=== PATIENT | male | born 1980 | race Caucasian/White ===

== ENCOUNTER → 2016-04-27 | Outpatient (CLI) | payer OTHER ==
[2016-04-27 12:08] LABS: INR 2.05
== END ==
LOC: M LAB 11:34
PROVIDERS: ATTEND Internal Medicine Cardiovascular Disease
DX: Z95.2 Presence of prosthetic heart valve (principal)

== ENCOUNTER → 2016-05-09 | Outpatient (CLI) | payer OTHER ==
[2016-05-09 10:21] LABS: INR 2.28
== END ==
LOC: M LAB 09:37
PROVIDERS: ATTEND Internal Medicine Cardiovascular Disease
DX: Z95.2 Presence of prosthetic heart valve (principal)

== ENCOUNTER → 2016-05-25 | Outpatient (REF) | payer OTHER ==
[2016-05-25 15:47] LABS: INR 2.59
== END ==
LOC: M SFHCPLAZ 14:32
PROVIDERS: ATTEND Family Medicine
DX: Z79.01 Long term (current) use of anticoagulants (principal); Z95.2 Presence of prosthetic heart valve

== ENCOUNTER → 2016-08-10 | Outpatient (REF) | payer OTHER ==
[2016-08-10 19:15] LABS: INR 2.9
== END ==
LOC: M SFHCPLAZ 15:23
PROVIDERS: ATTEND Family Medicine
DX: Z79.01 Long term (current) use of anticoagulants (principal); G45.3 Amaurosis fugax

== ENCOUNTER → 2016-08-14 | Outpatient (CLI) | payer OTHER ==
[2016-08-14 11:40] LABS: INR 2.12
== END ==
LOC: M LAB 11:01
PROVIDERS: ATTEND Internal Medicine Cardiovascular Disease
DX: Z79.01 Long term (current) use of anticoagulants (principal)

== ENCOUNTER → 2017-05-15 | Outpatient (CLI) | payer OTHER ==
[2017-05-15 12:10] LABS: INR 3.05
== END ==
LOC: M LAB 11:02
DX: Z95.2 Presence of prosthetic heart valve (principal)
CPT/HCPCS: 85610

== ENCOUNTER → 2017-06-29 | Outpatient (CLI) | payer OTHER ==
[2017-06-29 12:16] LABS: INR 3.69; PROTHROMBIN TIME 38.4 SECONDS (12.4-14.5)
== END ==
LOC: M LAB 11:19
DX: Z51.81 Encounter for therapeutic drug level monitoring (principal); Z79.01 Long term (current) use of anticoagulants; I48.2 Chronic atrial fibrillation
CPT/HCPCS: 85610

== ENCOUNTER → 2017-08-14 | Outpatient (CLI) | payer OTHER | LOC: M PAIN 12:45 | DX: G57.10 Meralgia paresthetica, unspecified lower limb (principal); M54.5 Low back pain; G89.29 Other chronic pain; E11.42 Type 2 diabetes mellitus with diabetic polyneuropathy; G47.30 Sleep apnea, unspecified; E78.5 Hyperlipidemia, unspecified; G47.00 Insomnia, unspecified; I48.91 Unspecified atrial fibrillation; F17.210 Nicotine dependence, cigarettes, uncomplicated; Z79.01 Long term (current) use of anticoagulants; Z79.84 Long term (current) use of oral hypoglycemic drugs; Z79.899 Other long term (current) drug therapy; Z91.02 Food additives allergy status; Z95.2 Presence of prosthetic heart valve | CPT/HCPCS: G0463 ==

== ENCOUNTER → 2017-09-04 | Outpatient (CLI) | payer OTHER ==
[2017-09-04 16:53] LABS: HEMATOCRIT 41.4 % (42.0-52.0); HEMOGLOBIN 14.8 g/dl (13.5-17.5); MEAN CORPUSCULAR HGB CONC 35.7 g/dl (32.0-36.5); MEAN CORPUSCULAR VOLUME 86.8 fl (80.0-96.0); PLATELET COUNT, AUTOMATED 288 10^3/uL (150-450); RED BLOOD COUNT 4.77 10^6/uL (4.30-6.10); RED CELL DISTRIBUTION WIDTH 12.9 % (11.5-14.5)
[2017-09-04 17:31] LABS: ALBUMIN 3.7 GM/DL (3.2-5.2); ALBUMIN/GLOBULIN RATIO 1.03 (1.00-1.93); ALKALINE PHOSPHATASE 61 U/L (45-117); ALT/SGPT 48 U/L (12-78); ANION GAP 9 MEQ/L (8-16); AST/SGOT 28 U/L (7-37); BILIRUBIN,DIRECT 0.2 MG/DL (0.0-0.2); BILIRUBIN,TOTAL 0.5 MG/DL (0.2-1.0); BLOOD UREA NITROGEN 14 MG/DL (7-18); CARBON DIOXIDE LEVEL 27 MEQ/L (21-32); CHLORIDE LEVEL 97 MEQ/L (98-107); CREATININE FOR GFR 1.34 MG/DL (0.70-1.30); GLOMERULAR FILTRATION RATE > 60.0 (>60); PHOSPHORUS LEVEL 3.2 MG/DL (2.5-4.9); POTASSIUM SERUM 3.3 MEQ/L (3.5-5.1); SODIUM LEVEL 133 MEQ/L (136-145); TOTAL PROTEIN 7.3 GM/DL (6.4-8.2)
[2017-09-04 17:45] LABS: GLUCOSE, FASTING 409 MG/DL (70-100)
== END ==
LOC: M LAB 16:31
DX: Z51.81 Encounter for therapeutic drug level monitoring (principal); Z79.899 Other long term (current) drug therapy; B35.1 Tinea unguium
CPT/HCPCS: 80076

== ENCOUNTER → 2017-09-18 | Outpatient (CLI) | payer OTHER | LOC: M PAIN 14:15 | DX: G57.10 Meralgia paresthetica, unspecified lower limb (principal); M54.5 Low back pain; G89.29 Other chronic pain; E11.42 Type 2 diabetes mellitus with diabetic polyneuropathy; G47.30 Sleep apnea, unspecified; E78.5 Hyperlipidemia, unspecified; G47.00 Insomnia, unspecified; I48.91 Unspecified atrial fibrillation; F17.210 Nicotine dependence, cigarettes, uncomplicated; Z79.01 Long term (current) use of anticoagulants; Z79.84 Long term (current) use of oral hypoglycemic drugs; Z79.891 Long term (current) use of opiate analgesic; Z79.899 Other long term (current) drug therapy; Z91.02 Food additives allergy status; Z95.2 Presence of prosthetic heart valve | CPT/HCPCS: G0463 ==

== ENCOUNTER → 2017-10-02 | Outpatient (CLI) | payer OTHER ==
[2017-10-02 17:10] LABS: HEMATOCRIT 39.9 % (42.0-52.0); HEMOGLOBIN 13.7 g/dl (13.5-17.5); MEAN CORPUSCULAR HEMOGLOBIN 30.1 pg (27.0-33.0); MEAN CORPUSCULAR HGB CONC 34.3 g/dl (32.0-36.5); MEAN CORPUSCULAR VOLUME 87.7 fl (80.0-96.0); PLATELET COUNT, AUTOMATED 296 10^3/uL (150-450); RED BLOOD COUNT 4.55 10^6/uL (4.30-6.10); RED CELL DISTRIBUTION WIDTH 12.9 % (11.5-14.5); WHITE BLOOD COUNT 9.4 10^3/uL (4.0-10.0)
[2017-10-02 17:20] LABS: ANION GAP 9 MEQ/L (8-16); BLOOD UREA NITROGEN 12 MG/DL (7-18); CALCIUM LEVEL 8.9 MG/DL (8.5-10.1); CARBON DIOXIDE LEVEL 23 MEQ/L (21-32); CHLORIDE LEVEL 110 MEQ/L (98-107); CREATININE FOR GFR 1.24 MG/DL (0.70-1.30); GLOMERULAR FILTRATION RATE > 60.0 (>60); GLUCOSE, FASTING 178 MG/DL (70-100); POTASSIUM SERUM 3.9 MEQ/L (3.5-5.1); SODIUM LEVEL 142 MEQ/L (136-145)
[2017-10-02 17:36] LABS: INR 3.47; PROTHROMBIN TIME 36.6 SECONDS (12.4-14.5)
[2017-10-02 17:37] LABS: PARTIAL THROMBOPLASTIN TIME 54.7 SECONDS (26.8-37.9)
== END ==
LOC: M LAB 16:09
DX: Z95.2 Presence of prosthetic heart valve (principal)
CPT/HCPCS: 80048

== ENCOUNTER → 2017-11-06 | Outpatient (CLI) | payer OTHER | LOC: M PAIN 13:15 | DX: G57.10 Meralgia paresthetica, unspecified lower limb (principal); M54.5 Low back pain; G89.29 Other chronic pain; E11.42 Type 2 diabetes mellitus with diabetic polyneuropathy; I48.91 Unspecified atrial fibrillation; G47.30 Sleep apnea, unspecified; E78.5 Hyperlipidemia, unspecified; G47.00 Insomnia, unspecified; F17.200 Nicotine dependence, unspecified, uncomplicated; Z79.01 Long term (current) use of anticoagulants; Z79.84 Long term (current) use of oral hypoglycemic drugs; Z79.899 Other long term (current) drug therapy; Z91.02 Food additives allergy status; Z95.2 Presence of prosthetic heart valve; Z95.0 Presence of cardiac pacemaker | CPT/HCPCS: G0463 ==

== ENCOUNTER 2017-12-04 10:38 | Emergency (ER) | payer OTHER ==
[2017-12-04 11:47] LABS: BASO # 0.1 10^3/uL (0.0-0.2); BASO % 0.9 % (0.0-1.0); EOS % 0.5 % (0.0-3.0); HEMATOCRIT 42.6 % (42.0-52.0); HEMOGLOBIN 14.7 g/dl (13.5-17.5); IMMATURE GRANULOCYTE % 0.6 % (0-3.0); LYMPH # 1.3 10^3/uL (1.5-4.5); LYMPH % 19.2 % (24.0-44.0); MEAN CORPUSCULAR HEMOGLOBIN 31.1 pg (27.0-33.0); MEAN CORPUSCULAR HGB CONC 34.5 g/dl (32.0-36.5); MEAN CORPUSCULAR VOLUME 90.1 fl (80.0-96.0); MONO # 0.5 10^3/uL (0.0-0.8); MONO % 8.2 % (0.0-5.0); NEUTROPHILS # 4.6 10^3/uL (1.8-7.7); NEUTROPHILS % 70.6 % (36.0-66.0); PLATELET COUNT, AUTOMATED 270 10^3/uL (150-450); RED BLOOD COUNT 4.73 10^6/uL (4.30-6.10); RED CELL DISTRIBUTION WIDTH 14.4 % (11.5-14.5); WHITE BLOOD COUNT 6.6 10^3/uL (4.0-10.0)
[2017-12-04 11:59] LABS: ANION GAP 8 MEQ/L (8-16); BLOOD UREA NITROGEN 13 MG/DL (7-18); CALCIUM LEVEL 8.8 MG/DL (8.5-10.1); CARBON DIOXIDE LEVEL 28 MEQ/L (21-32); CHLORIDE LEVEL 103 MEQ/L (98-107); CK-MB VALUE MASS 4.7 NG/ML (<3.6); CPK CREATINE PHOSPHOKINASE 136 U/L (39-308); CREATININE FOR GFR 1.15 MG/DL (0.70-1.30); GLOMERULAR FILTRATION RATE > 60.0 (>60); GLUCOSE, FASTING 261 MG/DL (70-100); MB/CK RELATIVE INDEX 3.45 (< OR =4); POTASSIUM SERUM 3.3 MEQ/L (3.5-5.1); SODIUM LEVEL 139 MEQ/L (136-145); TROPONIN I 0.06 NG/ML (< 0.10)
== END 2017-12-04 14:52 | disposition home or self-care (01) ==
LOC: M ED 10:38
DX: R07.9 Chest pain, unspecified (principal); T85.848A Pain due to other internal prosthetic devices, implants and grafts, initial encounter; X58.XXXA Exposure to other specified factors, initial encounter; Y92.89 Other specified places as the place of occurrence of the external cause; E11.9 Type 2 diabetes mellitus without complications; G47.33 Obstructive sleep apnea (adult) (pediatric); E66.9 Obesity, unspecified; Z95.810 Presence of automatic (implantable) cardiac defibrillator; Z79.899 Other long term (current) drug therapy; Z79.84 Long term (current) use of oral hypoglycemic drugs; Z79.01 Long term (current) use of anticoagulants
CPT/HCPCS: 71045

== ENCOUNTER → 2017-12-18 | Outpatient (CLI) | payer OTHER | LOC: M PAIN 13:15 | DX: G57.10 Meralgia paresthetica, unspecified lower limb (principal); M54.5 Low back pain; G89.29 Other chronic pain; E11.42 Type 2 diabetes mellitus with diabetic polyneuropathy; E78.5 Hyperlipidemia, unspecified; G47.00 Insomnia, unspecified; E66.01 Morbid (severe) obesity due to excess calories; Z68.44 Body mass index [BMI] 60.0-69.9, adult; Z79.01 Long term (current) use of anticoagulants; Z79.84 Long term (current) use of oral hypoglycemic drugs; Z79.899 Other long term (current) drug therapy; Z91.02 Food additives allergy status; Z86.79 Personal history of other diseases of the circulatory system; Z87.891 Personal history of nicotine dependence; Z95.0 Presence of cardiac pacemaker | CPT/HCPCS: G0463 ==

== ENCOUNTER → 2017-12-19 | Outpatient (CLI) | payer OTHER ==
[2017-12-19 13:40] LABS: INR 3.45; PROTHROMBIN TIME 35.5 SECONDS (12.1-14.4)
== END ==
LOC: M LAB 12:58
DX: Z79.01 Long term (current) use of anticoagulants (principal)
CPT/HCPCS: 85610

== ENCOUNTER → 2018-01-27 | Outpatient (CLI) | payer OTHER | LOC: M RAD 15:40 | DX: R05 Cough (principal) | CPT/HCPCS: 71046 ==

== ENCOUNTER → 2018-01-29 | Outpatient (CLI) | payer OTHER | LOC: M PAIN 13:00 | DX: G57.10 Meralgia paresthetica, unspecified lower limb (principal); M54.5 Low back pain; G89.29 Other chronic pain; E11.42 Type 2 diabetes mellitus with diabetic polyneuropathy; G47.30 Sleep apnea, unspecified; E78.5 Hyperlipidemia, unspecified; G47.00 Insomnia, unspecified; E66.01 Morbid (severe) obesity due to excess calories; Z68.42 Body mass index [BMI] 45.0-49.9, adult; Z79.01 Long term (current) use of anticoagulants; Z79.84 Long term (current) use of oral hypoglycemic drugs; Z79.899 Other long term (current) drug therapy; Z91.02 Food additives allergy status; Z95.2 Presence of prosthetic heart valve; Z95.0 Presence of cardiac pacemaker; Z86.79 Personal history of other diseases of the circulatory system; Z87.891 Personal history of nicotine dependence | CPT/HCPCS: G0463 ==

== ENCOUNTER → 2018-02-14 | Outpatient (REF) | payer OTHER | LOC: M LAB REF 13:12 | DX: J02.9 Acute pharyngitis, unspecified (principal) ==

== ENCOUNTER → 2018-02-18 | Outpatient (CLI) | payer OTHER, SELFPAY | LOC: M WUC 14:19 | DX: Z11.1 Encounter for screening for respiratory tuberculosis (principal); I51.7 Cardiomegaly; Z95.0 Presence of cardiac pacemaker; Z95.2 Presence of prosthetic heart valve | CPT/HCPCS: 71046 ==

== ENCOUNTER → 2018-04-28 | Outpatient (CLI) | payer OTHER ==
[~2018-04-28] MED LIST: BUME2TAB3 PO; CARV3.12; CEFD1CAP8 PO; ENTR1TAB PO; HYDROCO/APAP; HYDROCODONE ACETA PO; INVO100T PO; METF500T13 PO; METO1TAB7 PO; SPIR-10 PO; TERB250T12 PO; VENTAER; VENTAER IN; WARF-22 PO
--- NOTE | 2018-05-13 00:34 | ECWPNPC ---
PATIENT NAME: JORDAN JONAS : 1980 GENDER: MALE VISIT DATE: 04/28/2018 DISCHARGE DATE: 04/28/18 1002 VISIT LOCKED DATE TIME: PHYSICIAN: HARLEY RAMIREZ RESOURCE: HARLEY RAMIREZ REASON FOR APPOINTMENT 1. BACK PAIN HISTORY OF PRESENT ILLNESS HISTORY OF PRESENT ILLNESS: HERE FOR F/U OF CHRONIC LOW BACK PAIN AND BILATERAL LEG PAIN.RATING PAIN VAS 10/10.PAIN IS DESCRIBED CONTINUOUS,ACHING AND SHARP.PAIN AWAKENS FROM SLEEP.HISTORY OF CARDIAC MYOPATHY AND NON COMPLIANT SLEEP APNEA.HAS TRIALED MULTIPLE MEDICATIONS FOR PAIN WITH EITHER SIDE EFFECTS OR NO IMPROVEMENT IN PAIN.DISCUSSED MEDICATION AND TREATMENT OPTIONS.FINDING ZONISIMIDE SOMEWHAT EFFECTIVE AT REDUCING PAIN IN LEGS AT NIGHT.USING HYDROCODONE 7.5MG Q8H PRN AND FINDS THIS SOMEWHAT EFFECTIVE.HE CONTINUES TO STRUGGLE WITH INCREASE IN PAIN AND TRYING TO STAY WORKING. PAIN THE PATIENT DESCRIBES THE PAIN... FALL RISK SCREENING: SCREENING :NO FALLS IN THE PAST YEAR CURRENT MEDICATIONS TAKING BUMETANIDE 1 MG TABLET 1 TABLET ORALLY TWICE A DAY TAKING SPIRONOLACTONE 25 MG TABLET 1 TABLET WITH FOOD ORALLY ONCE A DAY TAKING PROAIR HFA 108 (90 BASE) MCG/ACT AEROSOL SOLUTION 2 PUFFS NEEDED INHALATION EVERY 6 HRS TAKING METOPROLOL SUCCINATE ER 25 MG TABLET EXTENDED RELEASE 24 HOUR 1 TABLETS ORALLY TWICE A DAY TAKING ENTRESTO 24-26 MG TABLET TAKE 1/2 TABLET BY MOUTH TWICE DAILY ORAL TAKING TRULICITY 1.5 MG/0.5ML SOLUTION PEN-INJECTOR DIRECTED SUBCUTANEOUS WEEKLY TAKING GLUCOMETER DIRECTED SUBCUTANEOUSLY DAILY BEFORE BREAKFAST. DX: E11.9 TAKING BLOOD GLUCOSE TEST - STRIP DIRECTED IN VITRO DAILY BEFORE BREAKFAST TAKING TERBINAFINE HCL 250 MG TABLET 1 TABLET ORALLY ONCE A DAY TAKING COUMADIN 10 MG TABLET DIRECTED ORALLY 5 MG ON SUN; 10 MG ROW TAKING NICORETTE 2 MG GUM 1 PIECE NEEDED 24 TIME(S) A DAY MOUTH/THROAT 30 DAYS TAKING MAY HAVE - - PLEASE PROVIDE MASK REFIT AND SUPPLIES FOR BIPAP DAILY WHEN SLEEPING, NOTES: URGENT. IT IS VERY IMPORTANT THIS PATIENT GET REFITTED SOON POSSIBLE. TAKING MAY HAVE - - PLEASE DISPENSE INR METER AND SUPPLIES FINGERSTICK WEEKLY OR INSTRUCTED TAKING METFORMIN HCL 500 MG TABLET 2 TAB ORALLY TWICE DAILY WITH MEALS TAKING STEGLATRO 15 MG TABLET TAKE ONE TABLET BY MOUTH ONCE DAILY ORALLY DAILY TAKING ZONISAMIDE 50 MG CAPSULE 1 CAPSULE ORALLY TWICE A DAY TAKING NORCO 7.5-325 MG TABLET 1 TABLET ORALLY THREE TIMES DAILY NEEDED FOR SEVERE PAIN. MDD: 3 NOT-TAKING TERBINAFINE HCL 250 MG TAB 1 TABLET ONCE A DAY ORALLY 30 DAY(S) NOT-TAKING INVOKANA 100 MG TABLET TAKE ONE TABLET BY MOUTH ONCE DAILY ORAL , NOTES: INS. WON'T COVER, FREE TRIAL NOT-TAKING HIBICLENS 4 % LIQUID DIRECTED EXTERNALLY DAILY FOR DECOLONIZATION OF SKIN NOT-TAKING TRIAMCINOLONE ACETONIDE 0.1 % CREAM 1 APPLICATION TO INNER LEGS EXTERNALLY TWICE A DAY NOT-TAKING PREDNISONE 20 MG TABLET 2 TABLET ORALLY ONCE A DAY NOT-TAKING FLUTICASONE PROPIONATE 50 MCG/ACT SUSPENSION 1 SPRAY IN EACH NOSTRIL NASALLY BID, NOTES: USE FOR ACUTE SINUS ISSUES NOT-TAKING IPRATROPIUM BROMIDE 0.03 % SOLUTION 2 SPRAYS IN EACH NOSTRIL NASALLY TWICE A DAY, NOTES: USE FOR ACUTE SINUS ISSUES NOT-TAKING DOXYCYCLINE HYCLATE 100 MG TABLET 1 TABLET ORALLY ONCE A DAY NOT-TAKING AMOXICILLIN 875 MG TABLET 1 TABLET ORALLY EVERY 12 HRS MEDICATION LIST REVIEWED AND RECONCILED WITH THE PATIENT PAST MEDICAL HISTORY MITRAL VALVE REPLACEMENT 11/2015 SLEEP APNEA ON BIPAP ? 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 11/25/2015 FINGER FX REPAIR PACEMAKER/ DEFIBRILLATOR 10/23/17 FAMILY HISTORY FATHER: ALIVE, HEALTHY MOTHER: ALIVE, RA, 3 VALVES REPLACED, DIAGNOSED WITH HEART DISEASE SIBLINGS: ALIVE 4 BROTHER(S) , 2 SISTER(S) - HEALTHY. SOCIAL HISTORY GENERAL: TOBACCO USE ARE YOU A:FORMER SMOKER HOW LONG HAS IT BEEN SINCE YOU LAST SMOKED?3-6 MONTHS SMOKING CESSATION INFORMATION GIVEN01/04/2017 PT HAS HAD THE INFORMATION AND USES GUM BUT HAS SIDE EFFECTS FROM THIS. BMI CARE GOAL FOLLOW-UP ABOVE NORMAL BMI FOLLOW-UPDIETARY MANAGEMENT EDUCATION, GUIDANCE, AND COUNSELING ALCOHOL SCREENING DID YOU HAVE A DRINK CONTAINING ALCOHOL IN THE PAST YEAR?YES HOW OFTEN DID YOU HAVE SIX OR MORE DRINKS ON ONE OCCASION IN THE PAST YEAR?NEVER (0 POINTS) HOW MANY DRINKS DID YOU HAVE ON A TYPICAL DAY WHEN YOU WERE DRINKING IN THE PAST YEAR?1 OR 2 (0 POINTS) HOW OFTEN DID YOU HAVE A DRINK CONTAINING ALCOHOL IN THE PAST YEAR?MONTHLY OR LESS (1 POINT) POINTS1 INTERPRETATIONNEGATIVE RECREATIONAL DRUG USE DRUG USE?NO PATIENT DENIES ABUSE OR MISSUSED OF ANY MEDICATION. PATIENT DENIES USE OF ANY ILLEGAL SUBSTANCE INCLUDING MARIJUANA OR COCAINE. CAFFEINE CAFFEINE USE?YES HOW OFTEN AND HOW MUCH? 2-3 CANS SODA SEXUAL HX HAD SEX IN THE LAST 12 MONTHS (VAGINAL, ORAL, OR ANAL)?YES WITHWOMEN ONLY USE PROTECTION?NO HAVE YOU EVER HAD AN STD?NO FAITH FAITH NO BUDDHISM BELIEFS THAT WOULD IMPACT HEALTH CARE. 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 DIET: CONSISTENT CARBOHYDRATE. EXERCISE: NO REGULAR EXERCISE. MARITAL STATUS: .. OTHERS AT HOME: LIVES WITH PARTNER.. PAIN CLINIC PFS, CLERGY, PUBLIC HEALTH REFERRALS PFS REFERRAL NEEDED?NO CLERGY REFERRAL NEEDED?NO PUBLIC HEALTH REFERRAL NEEDED?NO WAS THE PROVIDER NOTIFIED OF ANY PERTINENT INFO?YES HAS THE PATIENT BEEN EDUCATED REGARDING HIS/HER PLAN OF CARE?YES 07-24-17 TRIES STRETCHES, DOESN'T USE HOT/COLD, IT MAKES IT WORSE. MEDS HELP. HAS THE PATIENT BEEN EDUCATED REGARDING PAIN, THE RISK FOR PAIN, THE IMPORTANCE OF EFFECTIVE PAIN MANAGEMENT, AND THE PAIN ASSESSMENT PROCESS?YES ADVANCE DIRECTIVE ADVANCE DIRECTIVE DISCUSSED WITH PATIENT:YES PT HAS NO ADVANCED DIRECTIVES, DECLINES INFORMATION AT THIS TIME REVIEWED WITH PATIENT 01/29/18 4405 JS. HOSPITALIZATION/MAJOR DIAGNOSTIC PROCEDURE RELATED TO SURGERY PLEURAL EFFUSION POST SURGERY REVIEW OF SYSTEMS REVIEWED BY: PROVIDER: HARLEY LAMBERT . CONSTITUTIONAL: ANY CHANGE IN YOUR MEDICAL CONDITION? NO . CHILLS NO . FEVER NO . INFECTION: DO YOU HAVE NEW INFECTIONS? NO . DO YOU HAVE HISTORY OF MRSA? NO . MUSCULOSKELETAL: ANY NEW PATTERNS OF PAIN OR NUMBNESS? YES, NERVE PAIN IN LEGS AND ARMS . GASTROENTEROLOGY: ANY NEW CHANGE IN BOWEL CONTROL? NO . GENITOURINARY: ANY NEW CHANGE IN BLADDER CONTROL? NO . IS THERE A CHANCE YOU COULD BE ? NO . HEMATOLOGY/LYMPH: DO YOU TAKE ANY BLOOD THINNERS? (FOR EXAMPLE- COUMADIN, PLAVIX, AGGRENOX, PLATEL, PRADAXA, OR XARELTO) NO . WHEN WAS YOUR LAST DOSE? DATE: TIME: . NEUROLOGY: HAVE YOU FALLEN IN THE PAST 6 MONTHS? NO . ANY NEW EXTREMITY NUMBNESS OR WEAKNESS? NO . CARDIOLOGY: DO YOU HAVE A PACEMAKER OR DEFIBRILLATOR? YES, AICD . RESPIRATORY: HAVE YOU BEEN SICK IN THE PAST WEEK? YES, COUGH, PT STATES THAT HE FEELS LIKE HE IS STARTING TO COME DOWN WITH SOMETHING. . FEVER NO . FLU LIKE SYMPTOMS? NO . COUGH NO . INTEGUMENTARY: DO YOU HAVE ANY RASHES OR OPEN SORES? NO . ALLERGIC/IMMUNO: ARE YOU ALLERGIC TO SHELLFISH OR IV DYE? NO . ANY NEW ALLERGIES? NO . PSYCHIATRIC: DO YOU HAVE THOUGHTS OF HURTING YOURSELF OR SOMEONE ELSE? NO . ARE YOU ABUSED, NEGLECTED, OR IN AN UNSAFE ENVIRONMENT? NO . ENDOCRINOLOGY: ARE YOU DIABETIC? YES, FSBS 149 . OTHER: DO YOU NEED ANY PRESCRIPTIONS? YES, ZONISAMIDE . IF YES, PLEASE LIST: ____ . ANY NEW PROBLEMS WITH YOUR MEDICATIONS? YES . WHEN DID YOU LAST EAT? ____ . WHEN DID YOU LAST DRINK? ____ . WHAT DID YOU LAST DRINK? ____ . NAME OF PERSON DRIVING YOU HOME? ____ . DO YOU HAVE ANY OTHER QUESTIONS OR CONCERNS PT SCHEDULED FOR HEART CATH ON 05/05 IN [place]. . VITAL SIGNS WT 304.6 LBS, HT 5'6", BMI 49.16 INDEX, BP 117/72 MM HG, HR 93 /MIN, RR 18 /MIN, TEMP 97.7 F, OXYGEN SAT % 98%, SAFE IN ENV? (Y/N) Y, NA INITIALS AW 0903, REVIEWED BY: FRED. EXAMINATION GENERAL EXAMINATION: GENERAL APPEARANCE:AWAKE,ALERT ,PLEAASANT . PSYCHAFFECT NORMAL . LUNGS:LUNG HOOKS ARE CLEAR TO AUSCULTATION BILATERALLY. GOOD MOVEMENT OF AIR . HEART:S1, S2 IN A REGULAR RATE AND RHYTHM. NO SIGNIFICANT MURMURS, RUBS OR GALLOPS NOTED . ASSESSMENTS RLS (RESTLESS LEGS SYNDROME) - G25.81 (PRIMARY) LOW BACK PAIN - M54.5 NEUROPATHY - G62.9 TREATMENT RLS (RESTLESS LEGS SYNDROME) INCREASE NORCO TABLET, 10-325 MG, 1 TABLET, ORALLY, Q6H PRN MDD3 #70 TAB SHOULD LAST 30 DAYS, 30 DAY(S), 70, REFILLS 0 REFILL ZONISAMIDE CAPSULE, 50 MG, 1 CAPSULE, ORALLY, TWICE A DAY, 30 DAY(S), 60 CAPSULE, REFILLS 2 NOTES: ISTOP REGISTRY REVIEWED AND DEMONSTRATES COMPLLIANCE. (REF #[id number] ) BRINGS IN MEDICATIONS WHICH IS APPROPRIATE FOR WHAT WAS DISPENSED. RECENT URINE TOXICOLOGY REVIEWED. NO UNAUTHORIZED MEDICATIONS. NO ILLICIT SUBSTANCES AND PRESCRIBED MEDICATIONS WERE PRESENT. URINE TOX TODAY, [facility] NARCOTIC AGREEMENT WAS REVIEWED 1) KEEP PAIN MEDS IN THEIR ORIGINAL BOTTLES AND ANY WEEKLY PLANNERS ARE TO BE BROUGHT TO THE PAIN CENTER AT EVERY VISIT. 2) THE PATIENT IS NOT TO INCREASE DOSING OR TIMING OF THEIR PAIN MEDICATION WITHOUT SPECIFIC DIRECTION OF THEIR PAIN CENTERPROVIDER (NOT ER OR OTHER PROVIDERS). 3) ALL PAIN MEDS ARE TO BE KEPT SECURED, IN A LOCKED BOX. 4) NO PAIN MEDS ARE TO BE SHARED WITH ANY OTHER PERSON FOR ANY REASON. 5) NO PAIN MEDS MAY BE TAKEN FROM ANY FRIENDS OR RELATIVES FOR ANY REASON 6) NO MEDS OR SUBSTANCES WHICH ARE NOT LEGAL ARE TO BE USED- NO MARIJUANA, NO COCAINE, AMPHETAMINES, HEROIN, OR OTHERS ARE EVER TO BE USED. 7)URINE TESTING IS DONE TO ACCOUNT FOR MEDS AND SUBSTANCES BEING TAKEN AND WILL BE DONE RANDOMLY., RISKS AND BENEFITS OF NARCOTIC/OPIOD MEDICATIONS WERE REVIEWED WITH PATIENT - THIS INCLUDES BUT IS NOT LIMITED TO RISK OF DEPENDANCE/DEVELOPMENT OF ADDICTION, MOOD DISTURBANCE AND DEPRESSION, OSTEOPOROSIS, HORMONAL AND LABIDAL CHANGES, RESPIRATORY DEPRESSION AND . PATIENT IS ADVISED NOT TO DRIVE OR DRINK ALCOHOL WHILE ON THESE MEDICATIONS. PROCEDURE CODES FA211 ESTABILISHED [facility]IENT [facility] CHARGE DISPOSITION & COMMUNICATION FOLLOW UP 2 MONTHS ELECTRONICALLY SIGNED BY FAUSTO TUCKER ON 05/12/2018 AT 11:27 AM EST DISCLAIMER : THIS IS A VISIT SUMMARY EXTRACTED FROM THE [employer] CHART. IT IS NOT A COPY OF THE [employer] PROGRESS NOTE. MTDD
== END ==
LOC: M PAIN 08:45
PROVIDERS: ATTEND Nurse Practitioner Family
DX: G25.81 Restless legs syndrome (principal); M54.5 Low back pain; G62.9 Polyneuropathy, unspecified; G47.30 Sleep apnea, unspecified; E11.9 Type 2 diabetes mellitus without complications; E78.5 Hyperlipidemia, unspecified; M48.061 Spinal stenosis, lumbar region without neurogenic claudication; I48.2 Chronic atrial fibrillation; I42.0 Dilated cardiomyopathy; Z95.2 Presence of prosthetic heart valve; Z87.891 Personal history of nicotine dependence; Z95.810 Presence of automatic (implantable) cardiac defibrillator; Z91.048 Other nonmedicinal substance allergy status; Z79.01 Long term (current) use of anticoagulants; Z79.84 Long term (current) use of oral hypoglycemic drugs; Z79.899 Other long term (current) drug therapy

== ENCOUNTER → 2018-06-27 | Outpatient (CLI) | payer OTHER ==
--- NOTE | 2018-07-13 00:10 | ECWPNPC ---
PATIENT NAME: JORDAN JONAS : 1980 GENDER: MALE VISIT DATE: 06/27/2018 DISCHARGE DATE: 06/27/18 0944 VISIT LOCKED DATE TIME: PHYSICIAN: HARLEY RAMIREZ RESOURCE: HARLEY RAMIREZ REASON FOR APPOINTMENT 1. BACK PAIN HISTORY OF PRESENT ILLNESS HISTORY OF PRESENT ILLNESS: HERE FOR F/U OF CHRONIC LOW BACK PAIN AND BILATERAL LEG PAIN.RATING PAIN VAS 8/10.DOING BETTERAFTER INCREASE OF HYDROCODONE TO 10/325 STRENGTH AT LAST VISIT.PAIN IS DESCRIBED CONTINUOUS,ACHING AND SHARP.PAIN AWAKENS FROM SLEEP.HISTORY OF CARDIAC MYOPATHY AND NON COMPLIANT SLEEP APNEA.HAS TRIALED MULTIPLE MEDICATIONS FOR PAIN WITH EITHER SIDE EFFECTS OR NO IMPROVEMENT IN PAIN.DISCUSSED MEDICATION AND TREATMENT OPTIONS.FINDING ZONISIMIDE SOMEWHAT EFFECTIVE AT REDUCING PAIN IN LEGS AT NIGHT. PAIN THE PATIENT DESCRIBES THE PAIN... THE PATIENT DESCRIBES THE PAIN... FALL RISK SCREENING: SCREENING : NO FALLS IN THE PAST YEAR. CURRENT MEDICATIONS TAKING BUMETANIDE 1 MG TABLET 1 TABLET ORALLY TWICE A DAY TAKING SPIRONOLACTONE 25 MG TABLET 1 TABLET WITH FOOD ORALLY ONCE A DAY TAKING PROAIR HFA 108 (90 BASE) MCG/ACT AEROSOL SOLUTION 2 PUFFS NEEDED INHALATION EVERY 6 HRS TAKING METOPROLOL SUCCINATE ER 25 MG TABLET EXTENDED RELEASE 24 HOUR 1 TABLETS ORALLY TWICE A DAY TAKING ENTRESTO 24-26 MG TABLET TAKE 1/2 TABLET BY MOUTH TWICE DAILY ORAL TAKING TRULICITY 1.5 MG/0.5ML SOLUTION PEN-INJECTOR DIRECTED SUBCUTANEOUS WEEKLY TAKING GLUCOMETER DIRECTED SUBCUTANEOUSLY DAILY BEFORE BREAKFAST. DX: E11.9 TAKING BLOOD GLUCOSE TEST - STRIP DIRECTED IN VITRO DAILY BEFORE BREAKFAST TAKING TERBINAFINE HCL 250 MG TABLET 1 TABLET ORALLY ONCE A DAY TAKING NICORETTE 2 MG GUM 1 PIECE NEEDED 24 TIME(S) A DAY MOUTH/THROAT 30 DAYS TAKING MAY HAVE - - PLEASE PROVIDE MASK REFIT AND SUPPLIES FOR BIPAP DAILY WHEN SLEEPING, NOTES: URGENT. IT IS VERY IMPORTANT THIS PATIENT GET REFITTED SOON POSSIBLE. TAKING MAY HAVE - - PLEASE DISPENSE INR METER AND SUPPLIES FINGERSTICK WEEKLY OR INSTRUCTED TAKING METFORMIN HCL 500 MG TABLET 2 TAB ORALLY TWICE DAILY WITH MEALS TAKING STEGLATRO 15 MG TABLET TAKE ONE TABLET BY MOUTH ONCE DAILY ORALLY DAILY TAKING ZONISAMIDE 50 MG CAPSULE 1 CAPSULE ORALLY TWICE A DAY TAKING COUMADIN 10 MG TABLET DIRECTED ORALLY 5 MG W, ARNOLD; 10 MG MO, TU, TH,FRI,SA TAKING NORCO 10-325 MG TABLET 1 TABLET ORALLY Q6H PRN MDD3 _#70 TAB SHOULD LAST 30 DAYS NOT-TAKING TERBINAFINE HCL 250 MG TAB 1 TABLET ONCE A DAY ORALLY 30 DAY(S) NOT-TAKING INVOKANA 100 MG TABLET TAKE ONE TABLET BY MOUTH ONCE DAILY ORAL , NOTES: INS. WON'T COVER, FREE TRIAL NOT-TAKING HIBICLENS 4 % LIQUID DIRECTED EXTERNALLY DAILY FOR DECOLONIZATION OF SKIN NOT-TAKING TRIAMCINOLONE ACETONIDE 0.1 % CREAM 1 APPLICATION TO INNER LEGS EXTERNALLY TWICE A DAY NOT-TAKING PREDNISONE 20 MG TABLET 2 TABLET ORALLY ONCE A DAY NOT-TAKING FLUTICASONE PROPIONATE 50 MCG/ACT SUSPENSION 1 SPRAY IN EACH NOSTRIL NASALLY BID, NOTES: USE FOR ACUTE SINUS ISSUES NOT-TAKING IPRATROPIUM BROMIDE 0.03 % SOLUTION 2 SPRAYS IN EACH NOSTRIL NASALLY TWICE A DAY, NOTES: USE FOR ACUTE SINUS ISSUES NOT-TAKING DOXYCYCLINE HYCLATE 100 MG TABLET 1 TABLET ORALLY ONCE A DAY NOT-TAKING AMOXICILLIN 875 MG TABLET 1 TABLET ORALLY EVERY 12 HRS MEDICATION LIST REVIEWED AND RECONCILED WITH THE PATIENT PAST MEDICAL HISTORY MITRAL VALVE REPLACEMENT 11/2015 SLEEP APNEA ON BIPAP ? 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 11/25/2015 FINGER FX REPAIR PACEMAKER/ DEFIBRILLATOR 10/23/17 FAMILY HISTORY FATHER: ALIVE, HEALTHY MOTHER: ALIVE, RA, 3 VALVES REPLACED, DIAGNOSED WITH HEART DISEASE SIBLINGS: ALIVE 4 BROTHER(S) , 2 SISTER(S) - HEALTHY. SOCIAL HISTORY GENERAL: TOBACCO USE ARE YOU A:FORMER SMOKER HOW LONG HAS IT BEEN SINCE YOU LAST SMOKED?3-6 MONTHS SMOKING CESSATION INFORMATION GIVEN01/04/2017 PT HAS HAD THE INFORMATION AND USES GUM BUT HAS SIDE EFFECTS FROM THIS. LATEX QUESTIONNAIRE LATEX ALLERGY : HAVE YOU EVER DEVELOPED ANY TYPE OF REACTION AFTER HANDLING LATEX PRODUCTS SUCH RUBBER GLOVES, CONDOMS, DIAPHRAGMS, BALLOONS, SOCKS, OR UNDERWEAR?NO LATEX ALLERGY : HAVE YOU EVER DEVELOPED ANY TYPE OF REACTION DURING OR AFTER DENTAL APPOINTMENT, VAGINAL/RECTAL EXAMINATION, SURGICAL PROCEDURE, OR ANY OTHER EXPOSURE?NO LATEX RISK : HAVE YOU EVER HAD ANY DIFFICULTY BREATHING OR HIVES AFTER EATING OR HANDLING ANY FRUITS, OR VEGETABLES; SUCH KIWI, BANANAS, STONE FRUITS, OR CHESTNUTSNO LATEX RISK : DO YOU HAVE A PREVIOUS PERSONAL HISTORY OF MORE THAN NINE SURGERIES, SPINA BIFIDA, OR REPEATED CATHERTIZATIONS? NO LATEX RISK : ARE YOU FREQUENTLY EXPOSED TO LATEX PRODUCTS IN YOUR OCCUPATION?NO DATE ASKED : 06/27/2018 BMI CARE GOAL FOLLOW-UP ABOVE NORMAL BMI FOLLOW-UPDIETARY MANAGEMENT EDUCATION, GUIDANCE, AND COUNSELING ALCOHOL SCREENING DID YOU HAVE A DRINK CONTAINING ALCOHOL IN THE PAST YEAR?YES HOW OFTEN DID YOU HAVE SIX OR MORE DRINKS ON ONE OCCASION IN THE PAST YEAR?NEVER (0 POINTS) HOW MANY DRINKS DID YOU HAVE ON A TYPICAL DAY WHEN YOU WERE DRINKING IN THE PAST YEAR?1 OR 2 (0 POINTS) HOW OFTEN DID YOU HAVE A DRINK CONTAINING ALCOHOL IN THE PAST YEAR?MONTHLY OR LESS (1 POINT) POINTS1 INTERPRETATIONNEGATIVE RECREATIONAL DRUG USE DRUG USE?NO PATIENT DENIES ABUSE OR MISSUSED OF ANY MEDICATION. PATIENT DENIES USE OF ANY ILLEGAL SUBSTANCE INCLUDING MARIJUANA OR COCAINE. CAFFEINE CAFFEINE USE?YES HOW OFTEN AND HOW MUCH? 2-3 CANS SODA SEXUAL HX HAD SEX IN THE LAST 12 MONTHS (VAGINAL, ORAL, OR ANAL)?YES WITHWOMEN ONLY USE PROTECTION?NO HAVE YOU EVER HAD AN STD?NO BAPTISM BAPTISM NO JAINISM BELIEFS THAT WOULD IMPACT HEALTH CARE. 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 DIET: CONSISTENT CARBOHYDRATE. EXERCISE: NO REGULAR EXERCISE. MARITAL STATUS: .. OTHERS AT HOME: LIVES WITH PARTNER.. PAIN CLINIC PFS, CLERGY, PUBLIC HEALTH REFERRALS PFS REFERRAL NEEDED?NO CLERGY REFERRAL NEEDED?NO PUBLIC HEALTH REFERRAL NEEDED?NO WAS THE PROVIDER NOTIFIED OF ANY PERTINENT INFO?YES HAS THE PATIENT BEEN EDUCATED REGARDING HIS/HER PLAN OF CARE?YES 07-24-17 TRIES STRETCHES, DOESN'T USE HOT/COLD, IT MAKES IT WORSE. MEDS HELP. HAS THE PATIENT BEEN EDUCATED REGARDING PAIN, THE RISK FOR PAIN, THE IMPORTANCE OF EFFECTIVE PAIN MANAGEMENT, AND THE PAIN ASSESSMENT PROCESS?YES ADVANCE DIRECTIVE ADVANCE DIRECTIVE DISCUSSED WITH PATIENT:YES SANDEEP WILCOX [phone] REVIEWED WITH PATIENT 01/29/18 9535 JS. HOSPITALIZATION/MAJOR DIAGNOSTIC PROCEDURE RELATED TO SURGERY PLEURAL EFFUSION POST SURGERY REVIEW OF SYSTEMS REVIEWED BY: PROVIDER: HARLEY LAMBERT . CONSTITUTIONAL: ANY CHANGE IN YOUR MEDICAL CONDITION? NO . CHILLS NO . FEVER NO . INFECTION: DO YOU HAVE NEW INFECTIONS? YES, SINUS INFECTION, ON ANTIBIOTICS . DO YOU HAVE HISTORY OF MRSA? YES, PATRICKE,. 7 YEARS AGO . MUSCULOSKELETAL: ANY NEW PATTERNS OF PAIN OR NUMBNESS? NO . GASTROENTEROLOGY: ANY NEW CHANGE IN BOWEL CONTROL? NO . GENITOURINARY: ANY NEW CHANGE IN BLADDER CONTROL? NO . IS THERE A CHANCE YOU COULD BE ? NO . HEMATOLOGY/LYMPH: DO YOU TAKE ANY BLOOD THINNERS? (FOR EXAMPLE- COUMADIN, PLAVIX, AGGRENOX, PLATEL, PRADAXA, OR XARELTO) YES . WHEN WAS YOUR LAST DOSE? DATE: TIME: . NEUROLOGY: HAVE YOU FALLEN IN THE PAST 12 MONTHS? NO . ANY NEW EXTREMITY NUMBNESS OR WEAKNESS? NO . CARDIOLOGY: DO YOU HAVE A PACEMAKER OR DEFIBRILLATOR? YES . RESPIRATORY: HAVE YOU BEEN SICK IN THE PAST WEEK? YES . FEVER NO . FLU LIKE SYMPTOMS? NO . COUGH NO . INTEGUMENTARY: DO YOU HAVE ANY RASHES OR OPEN SORES? NO . ALLERGIC/IMMUNO: ARE YOU ALLERGIC TO IV DYE? NO . ANY NEW ALLERGIES? NO . PSYCHIATRIC: DO YOU HAVE THOUGHTS OF HURTING YOURSELF OR SOMEONE ELSE? NO . ARE YOU ABUSED, NEGLECTED, OR IN AN UNSAFE ENVIRONMENT? NO . ENDOCRINOLOGY: ARE YOU DIABETIC? YES . OTHER: DO YOU NEED ANY PRESCRIPTIONS? NORCO 10-325 . IF YES, PLEASE LIST: ____ . ANY NEW PROBLEMS WITH YOUR MEDICATIONS? NO . WHEN DID YOU LAST EAT? ____ . WHEN DID YOU LAST DRINK? ____ . WHAT DID YOU LAST DRINK? ____ . NAME OF PERSON DRIVING YOU HOME? ____ . DO YOU HAVE ANY OTHER QUESTIONS OR CONCERNS NO . VITAL SIGNS WT 287 LBS, HT 5'6", BMI 46.32 INDEX, BP 119/63 MM HG, HR 96 /MIN, RR 18 /MIN, TEMP 96.6 F, OXYGEN SAT % 95%, SAFE IN ENV? (Y/N) Y, NA INITIALS VA 09:07, REVIEWED BY: FRED. EXAMINATION GENERAL EXAMINATION: GENERAL APPEARANCE:AWAKE,ALERT ,PLEAASANT . PSYCHAFFECT NORMAL . LUNGS:LUNG HOOKS ARE CLEAR TO AUSCULTATION BILATERALLY. GOOD MOVEMENT OF AIR . HEART:S1, S2 IN A REGULAR RATE AND RHYTHM. NO SIGNIFICANT MURMURS, RUBS OR GALLOPS NOTED . ASSESSMENTS RLS (RESTLESS LEGS SYNDROME) - G25.81 (PRIMARY) LOW BACK PAIN - M54.5 NEUROPATHY - G62.9 TREATMENT RLS (RESTLESS LEGS SYNDROME) REFILL NORCO TABLET, 10-325 MG, 1 TABLET, ORALLY, Q6H PRN MDD3 _#70 TAB SHOULD LAST 30 DAYS, 30 DAY(S), 70, REFILLS 0 NOTES: ISTOP REGISTRY REVIEWED AND DEMONSTRATES COMPLLIANCE. (REF #[id number] ) BRINGS IN MEDICATIONS WHICH IS APPROPRIATE FOR WHAT WAS DISPENSED. RECENT URINE TOXICOLOGY REVIEWED. NO UNAUTHORIZED MEDICATIONS. NO ILLICIT SUBSTANCES AND PRESCRIBED MEDICATIONS WERE PRESENT. , RISKS AND BENEFITS OF NARCOTIC/OPIOD MEDICATIONS WERE REVIEWED WITH PATIENT - THIS INCLUDES BUT IS NOT LIMITED TO RISK OF DEPENDANCE/DEVELOPMENT OF ADDICTION, MOOD DISTURBANCE AND DEPRESSION, OSTEOPOROSIS, HORMONAL AND LABIDAL CHANGES, RESPIRATORY DEPRESSION AND . PATIENT IS ADVISED NOT TO DRIVE OR DRINK ALCOHOL WHILE ON THESE MEDICATIONS. PROCEDURE CODES FA211 ESTABILISHED PATIENT [facility] CHARGE DISPOSITION & COMMUNICATION FOLLOW UP 2 MONTHS ELECTRONICALLY SIGNED BY FAUSTO TUCKER ON 07/11/2018 AT 03:16 PM EDT DISCLAIMER : THIS IS A VISIT SUMMARY EXTRACTED FROM THE [employer] CHART. IT IS NOT A COPY OF THE [employer] PROGRESS NOTE. ELKE
== END ==
LOC: M PAIN 08:45
PROVIDERS: ATTEND Nurse Practitioner Family
DX: G25.81 Restless legs syndrome (principal); M54.5 Low back pain; G89.29 Other chronic pain; G62.9 Polyneuropathy, unspecified; E11.9 Type 2 diabetes mellitus without complications; E78.5 Hyperlipidemia, unspecified; E66.01 Morbid (severe) obesity due to excess calories; Z68.42 Body mass index [BMI] 45.0-49.9, adult; Z79.01 Long term (current) use of anticoagulants; Z79.84 Long term (current) use of oral hypoglycemic drugs; Z79.891 Long term (current) use of opiate analgesic; Z79.899 Other long term (current) drug therapy; Z91.02 Food additives allergy status; Z86.79 Personal history of other diseases of the circulatory system; Z87.891 Personal history of nicotine dependence; Z95.4 Presence of other heart-valve replacement; Z95.0 Presence of cardiac pacemaker

== ENCOUNTER → 2018-08-28 | Outpatient (CLI) | payer OTHER ==
--- NOTE | 2018-09-16 01:57 | ECWPNPC ---
PATIENT NAME: JORDAN JONAS : 1980 GENDER: MALE VISIT DATE: 08/28/2018 DISCHARGE DATE: 08/28/18925 VISIT LOCKED DATE TIME: PHYSICIAN: HARLEY RAMIREZ RESOURCE: HARLEY RAMIREZ REASON FOR APPOINTMENT 1. BACK PAIN HISTORY OF PRESENT ILLNESS HISTORY OF PRESENT ILLNESS: HERE FOR F/U OF CHRONIC LOW BACK PAIN AND BILATERAL LEG PAIN.RATING PAIN VAS 6/10.CONCERNED ABOUT INCRTEASE IN NEUROPATHIC PAIN IN FEET BILAT.PAIN IS DESCRIBED CONTINUOUS,ACHING AND SHARP.PAIN AWAKENS FROM SLEEP.HISTORY OF CARDIAC MYOPATHY AND NON COMPLIANT SLEEP APNEA.HAS TRIALED MULTIPLE MEDICATIONS FOR PAIN WITH EITHER SIDE EFFECTS OR NO IMPROVEMENT IN PAIN.DISCUSSED MEDICATION AND TREATMENT OPTIONS.FINDING ZONISIMIDE SOMEWHAT EFFECTIVE AT REDUCING PAIN IN LEGS AT NIGHT. PAIN THE PATIENT DESCRIBES THE PAIN... THE PATIENT DESCRIBES THE PAIN... THE PATIENT DESCRIBES THE PAIN... FALL RISK SCREENING: SCREENING :NO FALLS REPORTED IN THE LAST YEAR CURRENT MEDICATIONS TAKING BUMETANIDE 1 MG TABLET 1 TABLET ORALLY TWICE A DAY TAKING SPIRONOLACTONE 25 MG TABLET 1 TABLET WITH FOOD ORALLY TWICE A DAY TAKING PROAIR HFA 108 (90 BASE) MCG/ACT AEROSOL SOLUTION 2 PUFFS NEEDED INHALATION EVERY 6 HRS TAKING METOPROLOL SUCCINATE ER 25 MG TABLET EXTENDED RELEASE 24 HOUR 1 TABLETS ORALLY TWICE A DAY TAKING ENTRESTO 24-26 MG TABLET TAKE 1/2 TABLET BY MOUTH TWICE DAILY ORAL TAKING TRULICITY 1.5 MG/0.5ML SOLUTION PEN-INJECTOR DIRECTED SUBCUTANEOUS WEEKLY TAKING GLUCOMETER DIRECTED SUBCUTANEOUSLY DAILY BEFORE BREAKFAST. DX: E11.9 TAKING BLOOD GLUCOSE TEST - STRIP DIRECTED IN VITRO DAILY BEFORE BREAKFAST TAKING NICORETTE 2 MG GUM 1 PIECE NEEDED 24 TIME(S) A DAY MOUTH/THROAT 30 DAYS TAKING MAY HAVE - - PLEASE PROVIDE MASK REFIT AND SUPPLIES FOR BIPAP DAILY WHEN SLEEPING, NOTES: URGENT. IT IS VERY IMPORTANT THIS PATIENT GET REFITTED SOON POSSIBLE. TAKING MAY HAVE - - PLEASE DISPENSE INR METER AND SUPPLIES FINGERSTICK WEEKLY OR INSTRUCTED TAKING METFORMIN HCL 500 MG TABLET 1 TAB ORALLY TWICE DAILY WITH MEALS TAKING STEGLATRO 15 MG TABLET TAKE ONE TABLET BY MOUTH ONCE DAILY ORALLY DAILY TAKING ZONISAMIDE 50 MG CAPSULE 1 CAPSULE ORALLY TWICE A DAY TAKING NORCO 10-325 MG TABLET 1 TABLET ORALLY Q6H PRN MDD3 _#70 TAB SHOULD LAST 30 DAYS TAKING ROPINIROLE HCL 0.25 MG TABLET 1 TABLET 1 TO 3 HOURS BEFORE BEDTIME ORALLY ONCE A DAY, NOTES: STOP ZONISAMIDE AND START ROPINOROLE FOR RESTLESS LEGS TAKING MAY HAVE - - PLEASE DISPENSE INR TESTING EQUIPMENT AND MACHINE WEEKLY INR WITH TARGET RANGE 2.5 - 3.5 WITH PANIC VALUES OF <1.5 AND >5 TAKING COUMADIN 10 MG TABLET DIRECTED ORALLY 5 MG ARNOLD; 10 MG MO, , , , SAT,SA, NOTES: 5 MG ARNOLD, 10 MG M, , , , SAT, SAT NOT-TAKING TERBINAFINE HCL 250 MG TABLET 1 TABLET ORALLY ONCE A DAY NOT-TAKING TERBINAFINE HCL 250 MG TAB 1 TABLET ONCE A DAY ORALLY 30 DAY(S) NOT-TAKING INVOKANA 100 MG TABLET TAKE ONE TABLET BY MOUTH ONCE DAILY ORAL , NOTES: INS. WON'T COVER, FREE TRIAL NOT-TAKING HIBICLENS 4 % LIQUID DIRECTED EXTERNALLY DAILY FOR DECOLONIZATION OF SKIN NOT-TAKING TRIAMCINOLONE ACETONIDE 0.1 % CREAM 1 APPLICATION TO INNER LEGS EXTERNALLY TWICE A DAY NOT-TAKING PREDNISONE 20 MG TABLET 2 TABLET ORALLY ONCE A DAY NOT-TAKING FLUTICASONE PROPIONATE 50 MCG/ACT SUSPENSION 1 SPRAY IN EACH NOSTRIL NASALLY BID, NOTES: USE FOR ACUTE SINUS ISSUES NOT-TAKING IPRATROPIUM BROMIDE 0.03 % SOLUTION 2 SPRAYS IN EACH NOSTRIL NASALLY TWICE A DAY, NOTES: USE FOR ACUTE SINUS ISSUES NOT-TAKING DOXYCYCLINE HYCLATE 100 MG TABLET 1 TABLET ORALLY ONCE A DAY NOT-TAKING AMOXICILLIN 875 MG TABLET 1 TABLET ORALLY EVERY 12 HRS MEDICATION LIST REVIEWED AND RECONCILED WITH THE PATIENT PAST MEDICAL HISTORY MITRAL VALVE REPLACEMENT 11/2015 SLEEP APNEA ON BIPAP ? 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 11/25/2015 FINGER FX REPAIR PACEMAKER/ DEFIBRILLATOR 10/23/17 FAMILY HISTORY FATHER: ALIVE, HEALTHY MOTHER: ALIVE, RA, 3 VALVES REPLACED, DIAGNOSED WITH HEART DISEASE SIBLINGS: ALIVE 4 BROTHER(S) , 2 SISTER(S) - HEALTHY. SOCIAL HISTORY GENERAL: TOBACCO USE ARE YOU A:FORMER SMOKER HOW LONG HAS IT BEEN SINCE YOU LAST SMOKED?6-12 MONTHS SMOKING CESSATION INFORMATION GIVEN01/04/2017 PT HAS HAD THE INFORMATION AND USES GUM BUT HAS SIDE EFFECTS FROM THIS. HIV / HEP-C SCREENING HIV TEST OFFERED TO PATIENT:YES DATE OFFERED:04/23/2016 TEST ACCEPTED:NO HEP-C TEST OFFERED TO PATIENT:YES DATE OFFERED:07/25/2018 REASON:PATIENT DECLINED TEST ACCEPTED:NO REASON:PATIENT DECLINED BROCHURE PROVIDED TO PATIENTYES OTHERS AT HOME: LIVES WITH PARTNER.. DIET: CONSISTENT CARBOHYDRATE. LANGUAGE LANGUAGES SPOKEN:GREEK DOMESTIC VIOLENCE DO YOU FEEL SAFE IN YOUR ENVIRONMENT?YES BMI CARE GOAL FOLLOW-UP ABOVE NORMAL BMI FOLLOW-UPDIETARY MANAGEMENT EDUCATION, GUIDANCE, AND COUNSELING RECREATIONAL DRUG USE DRUG USE?NO PATIENT DENIES ABUSE OR MISSUSED OF ANY MEDICATION. PATIENT DENIES USE OF ANY ILLEGAL SUBSTANCE INCLUDING MARIJUANA OR COCAINE. EXERCISE: NO REGULAR EXERCISE. LEARNING BARRIERS / SPECIAL NEEDS CHANGE FROM LAST VISIT?NO BARRIERS TO LEARNING?NO HEARING IMPAIRED?NO VISION IMPAIRED?NO COGNITIVELY IMPAIRED?NO READINESS TO LEARN?YES LEARNING PREFERENCES?YES :DEMONSTRATION/VERBAL INSTRUCTION LEARNING CAPABILITIES PRESENT?YES EMOTIONAL BARRIERS?NO SPECIAL DEVICES?NO CONVEYOR BELT OPERATOR NEEDED?NO PAIN CLINIC PFS, CLERGY, PUBLIC HEALTH REFERRALS PFS REFERRAL NEEDED?NO CLERGY REFERRAL NEEDED?NO PUBLIC HEALTH REFERRAL NEEDED?NO WAS THE PROVIDER NOTIFIED OF ANY PERTINENT INFO?YES HAS THE PATIENT BEEN EDUCATED REGARDING HIS/HER PLAN OF CARE?YES 07-24-17 TRIES STRETCHES, DOESN'T USE HOT/COLD, IT MAKES IT WORSE. MEDS HELP. HAS THE PATIENT BEEN EDUCATED REGARDING PAIN, THE RISK FOR PAIN, THE IMPORTANCE OF EFFECTIVE PAIN MANAGEMENT, AND THE PAIN ASSESSMENT PROCESS?YES LATEX QUESTIONNAIRE LATEX ALLERGY : HAVE YOU EVER DEVELOPED ANY TYPE OF REACTION AFTER HANDLING LATEX PRODUCTS SUCH RUBBER GLOVES, CONDOMS, DIAPHRAGMS, BALLOONS, SOCKS, OR UNDERWEAR?NO LATEX ALLERGY : HAVE YOU EVER DEVELOPED ANY TYPE OF REACTION DURING OR AFTER DENTAL APPOINTMENT, VAGINAL/RECTAL EXAMINATION, SURGICAL PROCEDURE, OR ANY OTHER EXPOSURE?NO DATE ASKED : 07/25/2018 LATEX RISK : HAVE YOU EVER HAD ANY DIFFICULTY BREATHING OR HIVES AFTER EATING OR HANDLING ANY FRUITS, OR VEGETABLES; SUCH KIWI, BANANAS, STONE FRUITS, OR CHESTNUTSNO LATEX RISK : DO YOU HAVE A PREVIOUS PERSONAL HISTORY OF MORE THAN NINE SURGERIES, SPINA BIFIDA, OR REPEATED CATHERTIZATIONS? NO LATEX RISK : ARE YOU FREQUENTLY EXPOSED TO LATEX PRODUCTS IN YOUR OCCUPATION?NO CAFFEINE CAFFEINE USE?YES HOW OFTEN AND HOW MUCH? 2-3 CANS SODA ADVANCE DIRECTIVE ADVANCE DIRECTIVE DISCUSSED WITH PATIENT:YES SANDEEP WILCOX [phone] PENTECOSTALISM [id number] NONE NO CONFUCIANIST BELIEFS THAT WOULD IMPACT HEALTH CARE. MARITAL STATUS: .. 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 SEXUAL HX HAD SEX IN THE LAST 12 MONTHS (VAGINAL, ORAL, OR ANAL)?YES WITHWOMEN ONLY USE PROTECTION?NO HAVE YOU EVER HAD AN STD?NO REVIEWED WITH PATIENT 01/29/18 1315 JS. HOSPITALIZATION/MAJOR DIAGNOSTIC PROCEDURE RELATED TO SURGERY PLEURAL EFFUSION POST SURGERY REVIEW OF SYSTEMS REVIEWED BY: PROVIDER: HARLEY LAMBERT . CONSTITUTIONAL: ANY CHANGE IN YOUR MEDICAL CONDITION? NO . CHILLS NO . FEVER NO . INFECTION: DO YOU HAVE NEW INFECTIONS? NO . DO YOU HAVE HISTORY OF MRSA? NO . MUSCULOSKELETAL: ANY NEW PATTERNS OF PAIN OR NUMBNESS? YES . GASTROENTEROLOGY: ANY NEW CHANGE IN BOWEL CONTROL? NO . GENITOURINARY: ANY NEW CHANGE IN BLADDER CONTROL? NO . IS THERE A CHANCE YOU COULD BE ? NO . HEMATOLOGY/LYMPH: DO YOU TAKE ANY BLOOD THINNERS? (FOR EXAMPLE- COUMADIN, PLAVIX, AGGRENOX, PLATEL, PRADAXA, OR XARELTO) YES . WHEN WAS YOUR LAST DOSE? DATE: TIME: . NEUROLOGY: HAVE YOU FALLEN IN THE PAST 12 MONTHS? NO . ANY NEW EXTREMITY NUMBNESS OR WEAKNESS? YES . CARDIOLOGY: DO YOU HAVE A PACEMAKER OR DEFIBRILLATOR? YES . RESPIRATORY: HAVE YOU BEEN SICK IN THE PAST WEEK? NO . FEVER NO . FLU LIKE SYMPTOMS? NO . COUGH YES . INTEGUMENTARY: DO YOU HAVE ANY RASHES OR OPEN SORES? NO . ALLERGIC/IMMUNO: ARE YOU ALLERGIC TO IV DYE? NO . ANY NEW ALLERGIES? NO . PSYCHIATRIC: DO YOU HAVE THOUGHTS OF HURTING YOURSELF OR SOMEONE ELSE? NO . ARE YOU ABUSED, NEGLECTED, OR IN AN UNSAFE ENVIRONMENT? NO . ENDOCRINOLOGY: ARE YOU DIABETIC? YES . OTHER: DO YOU NEED ANY PRESCRIPTIONS? YES . IF YES, PLEASE LIST: NORCO . ANY NEW PROBLEMS WITH YOUR MEDICATIONS? NO . WHEN DID YOU LAST EAT? ____ . WHEN DID YOU LAST DRINK? ____ . WHAT DID YOU LAST DRINK? ____ . NAME OF PERSON DRIVING YOU HOME? ____ . DO YOU HAVE ANY OTHER QUESTIONS OR CONCERNS YES - FEET . VITAL SIGNS WT 288.8 LBS, HT 66", BMI 46.61 INDEX, BP 114/73 MM HG, HR 94 /MIN, RR 18 /MIN, TEMP 97.0 F, OXYGEN SAT % 95, NA INITIALS MP 0840, REVIEWED BY: JOSEF. EXAMINATION GENERAL EXAMINATION: GENERAL APPEARANCE:AWAKE,ALERT ,PLEAASANT . PSYCHAFFECT NORMAL . LUNGS:LUNG HOOKS ARE CLEAR TO AUSCULTATION BILATERALLY. GOOD MOVEMENT OF AIR . HEART:S1, S2 IN A REGULAR RATE AND RHYTHM. NO SIGNIFICANT MURMURS, RUBS OR GALLOPS NOTED . ASSESSMENTS DIABETIC PERIPHERAL NEUROPATHY - E11.42 (PRIMARY) POLYARTHROPATHY - M13.0 TREATMENT DIABETIC PERIPHERAL NEUROPATHY START GABAPENTIN CAPSULE, 100 MG, DIRECTED, ORALLY, 2 CAP BID, 30 DAY(S), 120, REFILLS 2 REFILL NORCO TABLET, 10-325 MG, 1 TABLET, ORALLY, Q6H PRN MDD3 _#70 TAB SHOULD LAST 30 DAYS, 30 DAY(S), 70, REFILLS 0 NOTES: ISTOP REGISTRY REVIEWED AND DEMONSTRATES COMPLLIANCE. (REF # ) BRINGS IN MEDICATIONS WHICH IS APPROPRIATE FOR WHAT WAS DISPENSED. RECENT URINE TOXICOLOGY REVIEWED. NO UNAUTHORIZED MEDICATIONS. NO ILLICIT SUBSTANCES AND PRESCRIBED MEDICATIONS WERE PRESENT. , RISKS AND BENEFITS OF NARCOTIC/OPIOD MEDICATIONS WERE REVIEWED WITH PATIENT - THIS INCLUDES BUT IS NOT LIMITED TO RISK OF DEPENDANCE/DEVELOPMENT OF ADDICTION, MOOD DISTURBANCE AND DEPRESSION, OSTEOPOROSIS, HORMONAL AND LABIDAL CHANGES, RESPIRATORY DEPRESSION AND . PATIENT IS ADVISED NOT TO DRIVE OR DRINK ALCOHOL WHILE ON THESE MEDICATIONS. PREVENTIVE MEDICINE PAIN CLINIC TEACHING: PROCEDURE TEACHING PT TO START ON GABAPENTIN. FABIOLA MEDICATION TEACHING SHEET PRINTED AND REVIEWED WITH PT, PT VERBALIZES UNDERSTANDING. [employer] 08/28/18 0925. PROCEDURE CODES FA211 ESTABILISHED PATIENT [facility] FACILITY CHARGE DISPOSITION & COMMUNICATION FOLLOW UP 2 MONTHS ELECTRONICALLY SIGNED BY HARLEY LAMBERT, FAUSTO ON 09/15/2018 AT 08:59 AM EDT DISCLAIMER : THIS IS A VISIT SUMMARY EXTRACTED FROM THE [email or web address] CHART. IT IS NOT A COPY OF THE [employer] PROGRESS NOTE. ELKE
== END ==
LOC: M PAIN 08:30
PROVIDERS: ATTEND Nurse Practitioner Family
DX: E11.42 Type 2 diabetes mellitus with diabetic polyneuropathy (principal); M13.0 Polyarthritis, unspecified; G89.29 Other chronic pain; E78.5 Hyperlipidemia, unspecified; G47.30 Sleep apnea, unspecified; I50.42 Chronic combined systolic (congestive) and diastolic (congestive) heart failure; I42.0 Dilated cardiomyopathy; E66.01 Morbid (severe) obesity due to excess calories; Z68.42 Body mass index [BMI] 45.0-49.9, adult; Z79.84 Long term (current) use of oral hypoglycemic drugs; Z79.891 Long term (current) use of opiate analgesic; Z79.899 Other long term (current) drug therapy; Z79.01 Long term (current) use of anticoagulants; Z91.02 Food additives allergy status; Z87.891 Personal history of nicotine dependence; Z86.79 Personal history of other diseases of the circulatory system; Z95.2 Presence of prosthetic heart valve

== ENCOUNTER 2018-10-28 02:29 | Emergency (ER) | payer OTHER ==
[~2018-10-28] VITALS: Ht 167.6 cm; Wt 135.0 kg
[2018-10-28] MEDS ORDERED: PRED20TA (02:42)
[2018-10-28] MEDS ORDERED: BUME1TAB3 (02:42)
[2018-10-28] MEDS ORDERED: COUM1TAB17 PO (02:42)
[2018-10-28] MEDS ORDERED: AZIT-12 (02:42)
[2018-10-28] MEDS ORDERED: LEVO500T3 (02:42)
[2018-10-28 03:16] LABS: VENOUS BASE EXCESS 0.4 (-2.0-2.0); VENOUS PARTIAL PRESSURE CO2 45.6 mmHg (38.0-50.0); VENOUS PARTIAL PRESSURE O2 68.4 mmHg (30.0-50.0); VENOUS PH 7.374 UNITS (7.330-7.430); VENOUS STANDARD HCO3 24.7 MEQ/L; VENOUS TOTAL CO2 27.4 MEQ/L (24.0-28.0)
[2018-10-28 03:16] LABS: HEMATOCRIT 43.4 % (42.0-52.0); HEMOGLOBIN 14.5 g/dl (13.5-17.5); MEAN CORPUSCULAR HEMOGLOBIN 31.8 pg (27.0-33.0); MEAN CORPUSCULAR HGB CONC 33.4 g/dl (32.0-36.5); MEAN CORPUSCULAR VOLUME 95.2 fl (80.0-96.0); PLATELET COUNT, AUTOMATED 263 10^3/uL (150-450); RED BLOOD COUNT 4.56 10^6/uL (4.30-6.10)
[2018-10-28 03:42] LABS: BLOOD UREA NITROGEN 19 MG/DL (7-18); CALCIUM LEVEL 8.5 MG/DL (8.5-10.1); CARBON DIOXIDE LEVEL 27 MEQ/L (21-32); CHLORIDE LEVEL 104 MEQ/L (98-107); CPK CREATINE PHOSPHOKINASE 251 U/L (39-308); GLOMERULAR FILTRATION RATE > 60.0 (>60); GLUCOSE, FASTING 300 MG/DL (70-100); MB/CK RELATIVE INDEX 1.59 (< OR =4); SODIUM LEVEL 138 MEQ/L (136-145); TROPONIN I 0.07 NG/ML (< 0.10)
[2018-10-28 03:51] LABS: ATYPICAL LYMPH 2 % (0-5); BASOPHILS 1 % (0-4); EOSINOPHILS 1 % (0-5); LYMPHOCYTES 27 % (16-52); MONOCYTES 8 % (0-8); NEUTROPHILS 61 % (35-75); PLATELET ESTIMATE NORMAL (NORMAL)
[2018-10-28] MEDS ORDERED: FUROSEMIDE 100 MG/10 ML VIAL (J1940) IV ONE (04:00)
[2018-10-28 04:22] LABS: INR 3.86
[2018-10-28 04:23] LABS: PARTIAL THROMBOPLASTIN TIME 51.3 SECONDS (25.0-38.4)
[2018-10-28 04:45] VITALS: BP 117/90
[2018-10-28 04:46] LABS: NT-PRO BNP 3421 PG/ML (<125)
[2018-10-28] MEDS ORDERED: VENTAER INH (04:48)
[2018-10-28] MEDS ORDERED: AZIT-12 PO (04:48)
[2018-10-28] MEDS ORDERED: WARF-22 PO ×2 (04:48)
[2018-10-28] MEDS ORDERED: STEG15TA PO (04:48)
[2018-10-28] MEDS ORDERED: ACET-897 PO ×2 (04:48)
[2018-10-28] MEDS ORDERED: HYDR-4517 PO (04:48)
[2018-10-28] MEDS ORDERED: ROPI0.253 PO (04:48)
[2018-10-28] MEDS ORDERED: NICO2GUM MT (04:48)
[2018-10-28] MEDS ORDERED: LEVO500T3 PO (04:48)
[2018-10-28] MEDS ORDERED: TOPR50TA PO (04:48)
[2018-10-28] MEDS ORDERED: BUME1TAB3 PO (04:48)
[2018-10-28] MEDS ORDERED: ZONI50CA3 PO (04:48)
--- NOTE | 2018-10-28 08:08 | REP ---
Portable chest, 04:08 a.m., single AP view with the patient upright: Comparison is 10/22/2018. Chronic cardiomegaly is unchanged. Triple lead biventricular pacemaker is unchanged. Cardiac valve replacement is unchanged. There is diffuse interstitial coarsening with indistinctness compatible with diffuse bilateral interstitial infiltrates. There is no focal infiltrate. There are no pleural effusions. Impression: Findings are compatible with interstitial infiltrates as an interval change. Cardiomegaly, cardiac valve replacement and triple lead biventricular pacemaker are unchanged. Electronically Signed by Awais Stout MD 10/28/2018 07:59 A
--- NOTE | 2018-10-29 08:55 | ECGEPIP ---
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
== END 2018-10-28 05:10 | disposition left against medical advice (07) ==
LOC: M ED 02:29
DX: I50.89 Other heart failure (principal); J84.848 Other interstitial lung diseases of childhood; M79.89 Other specified soft tissue disorders; I48.91 Unspecified atrial fibrillation; E11.9 Type 2 diabetes mellitus without complications; I11.0 Hypertensive heart disease with heart failure; I42.9 Cardiomyopathy, unspecified; E78.5 Hyperlipidemia, unspecified; M54.5 Low back pain; Z95.2 Presence of prosthetic heart valve; Z95.0 Presence of cardiac pacemaker; Z87.891 Personal history of nicotine dependence; Z79.899 Other long term (current) drug therapy; Z79.4 Long term (current) use of insulin; Z79.2 Long term (current) use of antibiotics; Z79.01 Long term (current) use of anticoagulants
CPT/HCPCS: 71045; 80048; 82550; 82553; 82803; 83880; 85025; 85610; 85730; 87040; 93005; 93041; 96374; 99285; J1940

== ENCOUNTER → 2018-10-29 | Outpatient (REF) | payer OTHER ==
[~2018-10-29] MED LIST changes: +ACET-897 PO; +AZIT-12; +AZIT-12 PO; +BUME1TAB3; +BUME1TAB3 PO; +COUM1TAB17 PO; +HYDR-4517 PO; +LEVO500T3; +LEVO500T3 PO; +NICO2GUM MT; +PRED20TA; +ROPI0.253 PO; +STEG15TA PO; +TOPR50TA PO; +VENTAER INH; +ZONI50CA3 PO
[2018-10-29 20:04] LABS: BLOOD UREA NITROGEN 21 MG/DL (7-18); CALCIUM LEVEL 9.4 MG/DL (8.5-10.1); CARBON DIOXIDE LEVEL 29 MEQ/L (21-32); CHLORIDE LEVEL 101 MEQ/L (98-107); CREATININE FOR GFR 1.12 MG/DL (0.70-1.30); GLOMERULAR FILTRATION RATE > 60.0 (>60); GLUCOSE, FASTING 300 MG/DL (70-100); SODIUM LEVEL 136 MEQ/L (136-145)
[2018-10-29 20:09] LABS: INR 4.28; PROTHROMBIN TIME 41.3 SECONDS (11.8-14.0)
[2018-10-29 20:15] LABS: CREATININE, URINE 23.2 MG/DL; MALB URINE SIEMENS 10.7 MG/L; MAU/CREAT RATIO 46.1 MCG/MG (0.0-30.0)
[2018-10-29 20:23] LABS: HEMOGLOBIN A1c 8.6 %
== END ==
LOC: M SFHCPLAZ 15:35
PROVIDERS: ATTEND Family Medicine
DX: E11.42 Type 2 diabetes mellitus with diabetic polyneuropathy (principal); Z95.2 Presence of prosthetic heart valve; E11.9 Type 2 diabetes mellitus without complications

== ENCOUNTER → 2018-11-27 | Outpatient (CLI) | payer OTHER ==
--- NOTE | 2018-12-02 01:07 | ECWPNPC ---
PATIENT NAME: JORDAN JONAS : 1980 GENDER: MALE VISIT DATE: 11/27/2018 DISCHARGE DATE: 11/27/18 0000 VISIT LOCKED DATE TIME: PHYSICIAN: LUC العلي RESOURCE: LUC العلي REASON FOR APPOINTMENT 1. BACK PAIN HISTORY OF PRESENT ILLNESS HISTORY OF PRESENT ILLNESS: PAIN THE PATIENT DESCRIBES THE PAIN... 38 YEAR OLD MALE IN FOR CHRONIC PAIN FOLLOW UP. HE RATES HIS PAIN AT AN 8/10 CURRENTLY AND DESCRIBES IT ACHING, BURNING, SORE, TENDER, SHARP, STABBING, AND SHOOTING. HE ADMITS TO USE OF GABAPENTIN IN THE PAST BUT STATES HE DID NOT LIKE THE WAY IT MADE HIM FEEL. FALL RISK SCREENING: SCREENING :NO FALLS REPORTED IN THE LAST YEAR CURRENT MEDICATIONS TAKING GLUCOMETER DIRECTED SUBCUTANEOUSLY DAILY BEFORE BREAKFAST. DX: E11.9 TAKING BLOOD GLUCOSE TEST - STRIP DIRECTED IN VITRO DAILY BEFORE BREAKFAST TAKING MAY HAVE - - PLEASE DISPENSE INR TESTING EQUIPMENT AND MACHINE WEEKLY INR WITH TARGET RANGE 2.5 - 3.5 WITH PANIC VALUES OF <1.5 AND >5 TAKING ZONISAMIDE 50 MG CAPSULE 1 CAPSULE ORALLY TWICE A DAY TAKING NICORETTE 2 MG GUM 1 PIECE NEEDED 24 TIME(S) A DAY MOUTH/THROAT 30 DAYS TAKING NORCO 10-325 MG TABLET 1 TABLET ORALLY Q6H PRN MDD3 #70 TAB SHOULD LAST 30 DAYS TAKING MAY HAVE - - PLEASE PROVIDE MASK REFIT AND SUPPLIES FOR BIPAP DAILY WHEN SLEEPING TAKING MAY HAVE - - PLEASE DISPENSE INR METER AND SUPPLIES FINGERSTICK WEEKLY OR INSTRUCTED TAKING METFORMIN HCL 500 MG TABLET 2 TAB ORALLY TWICE DAILY WITH MEALS TAKING BUMETANIDE 1 MG TABLET 1.5 TAB ORALLY TWICE A DAY TAKING SPIRONOLACTONE 25 MG TABLET 1 TABLET WITH FOOD ORALLY TWICE A DAY TAKING ENTRESTO 24-26 MG TABLET TAKE 1/2 TABLET BY MOUTH TWICE DAILY ORAL TWICE A DAY TAKING METOPROLOL SUCCINATE ER 25 MG TABLET EXTENDED RELEASE 24 HOUR 1 TABLETS ORALLY TWICE A DAY TAKING COUMADIN 10 MG TABLET DIRECTED ORALLY 5 MG ARNOLD; 10 MG MO, , , , FRI,SA, NOTES: 5 MG ARNOLD, 10 MG M, , , , FRI, SAT TAKING STEGLATRO 15 MG TABLET TAKE ONE TABLET BY MOUTH ONCE DAILY ORALLY DAILY TAKING TRULICITY 1.5 MG/0.5ML SOLUTION PEN-INJECTOR DIRECTED SUBCUTANEOUS WEEKLY TAKING ROPINIROLE HCL 0.5 MG TABLET 1 TABLET ORALLY ONCE A DAY, NOTES: PATIENT DID NOT STOP ZONISAMIDE TAKING PROAIR HFA 108 (90 BASE) MCG/ACT AEROSOL SOLUTION 2 PUFFS NEEDED INHALATION EVERY 6 HRS TAKING LEVALBUTEROL HCL 1.25 MG/3ML NEBULIZATION SOLUTION 3 ML INHALATION EVERY 8 HRS NEEDED FOR WHEEZING OR SHORTNESS OF BREATH TAKING MAY HAVE - - PLEASE DISPENSE NEBULIZER MACHINE FOR USE WITH LEVALBUTEROL. J45.21 TAKING BASAGLAR KWIKPEN 100 UNIT/ML SOLUTION PEN-INJECTOR 5 UNITS SUBCUTANEOUS DAILY TAKING PEN NEEDLES 08/28" DIRECTED DAILY. DX: Z79.4 TAKING CONTOUR TEST - STRIP DIRECTED IN VITRO DAILY. Z79.4 NOT-TAKING METFORMIN HCL 500 MG TABLET 2 TAB ORALLY TWICE DAILY WITH MEALS NOT-TAKING LEVOFLOXACIN 500 MG TABLET TAKE ONE TABLET BY MOUTH ONCE DAILY FOR 10 DAYS ORAL NOT-TAKING STEGLATRO 15 MG TABLET TAKE ONE TABLET BY MOUTH ONCE DAILY ORALLY DAILY, NOTES: DUPLICATE NOT-TAKING GABAPENTIN 100 MG CAPSULE DIRECTED ORALLY 2 CAP BID NOT-TAKING TERBINAFINE HCL 250 MG TABLET 1 TABLET ORALLY ONCE A DAY NOT-TAKING TERBINAFINE HCL 250 MG TAB 1 TABLET ONCE A DAY ORALLY 30 DAY(S) NOT-TAKING INVOKANA 100 MG TABLET TAKE ONE TABLET BY MOUTH ONCE DAILY ORAL , NOTES: INS. WON'T COVER, FREE TRIAL NOT-TAKING HIBICLENS 4 % LIQUID DIRECTED EXTERNALLY DAILY FOR DECOLONIZATION OF SKIN NOT-TAKING TRIAMCINOLONE ACETONIDE 0.1 % CREAM 1 APPLICATION TO INNER LEGS EXTERNALLY TWICE A DAY NOT-TAKING PREDNISONE 20 MG TABLET 2 TABLET ORALLY ONCE A DAY NOT-TAKING FLUTICASONE PROPIONATE 50 MCG/ACT SUSPENSION 1 SPRAY IN EACH NOSTRIL NASALLY BID, NOTES: USE FOR ACUTE SINUS ISSUES NOT-TAKING IPRATROPIUM BROMIDE 0.03 % SOLUTION 2 SPRAYS IN EACH NOSTRIL NASALLY TWICE A DAY, NOTES: USE FOR ACUTE SINUS ISSUES NOT-TAKING DOXYCYCLINE HYCLATE 100 MG TABLET 1 TABLET ORALLY ONCE A DAY NOT-TAKING AMOXICILLIN 875 MG TABLET 1 TABLET ORALLY EVERY 12 HRS MEDICATION LIST REVIEWED AND RECONCILED WITH THE PATIENT PAST MEDICAL HISTORY MITRAL VALVE REPLACEMENT 11/2015 SLEEP APNEA ON BIPAP ? 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 11/25/2015 FINGER FX REPAIR PACEMAKER/ DEFIBRILLATOR 10/23/17 FAMILY HISTORY FATHER: ALIVE, HEALTHY MOTHER: ALIVE, RA, 3 VALVES REPLACED, DIAGNOSED WITH HEART DISEASE SIBLINGS: ALIVE 4 BROTHER(S) , 2 SISTER(S) - HEALTHY. SOCIAL HISTORY GENERAL: TOBACCO USE ARE YOU A:FORMER SMOKER HOW LONG HAS IT BEEN SINCE YOU LAST SMOKED?6-12 MONTHS SMOKING CESSATION INFORMATION GIVEN01/04/2017 PT HAS HAD THE INFORMATION AND USES GUM BUT HAS SIDE EFFECTS FROM THIS. HIV / HEP-C SCREENING HIV TEST OFFERED TO PATIENT:YES DATE OFFERED:04/23/2016 TEST ACCEPTED:NO HEP-C TEST OFFERED TO PATIENT:YES DATE OFFERED:07/25/2018 REASON:PATIENT DECLINED TEST ACCEPTED:NO REASON:PATIENT DECLINED BROCHURE PROVIDED TO PATIENTYES OTHERS AT HOME: LIVES WITH PARTNER.. DIET: CONSISTENT CARBOHYDRATE. LANGUAGE LANGUAGES SPOKEN:COOK ISLANDER DOMESTIC VIOLENCE DO YOU FEEL SAFE IN YOUR ENVIRONMENT?YES BMI CARE GOAL FOLLOW-UP ABOVE NORMAL BMI FOLLOW-UPDIETARY MANAGEMENT EDUCATION, GUIDANCE, AND COUNSELING RECREATIONAL DRUG USE DRUG USE?NO PATIENT DENIES ABUSE OR MISSUSED OF ANY MEDICATION. PATIENT DENIES USE OF ANY ILLEGAL SUBSTANCE INCLUDING MARIJUANA OR COCAINE. EXERCISE: NO REGULAR EXERCISE. LEARNING BARRIERS / SPECIAL NEEDS CHANGE FROM LAST VISIT?NO BARRIERS TO LEARNING?NO HEARING IMPAIRED?NO VISION IMPAIRED?NO COGNITIVELY IMPAIRED?NO READINESS TO LEARN?YES LEARNING PREFERENCES?YES :DEMONSTRATION/VERBAL INSTRUCTION LEARNING CAPABILITIES PRESENT?YES EMOTIONAL BARRIERS?NO SPECIAL DEVICES?NO SENIOR ACCOUNT REPRESENTATIVE NEEDED?NO PAIN CLINIC PFS, CLERGY, PUBLIC HEALTH REFERRALS PFS REFERRAL NEEDED?NO CLERGY REFERRAL NEEDED?NO PUBLIC HEALTH REFERRAL NEEDED?NO WAS THE PROVIDER NOTIFIED OF ANY PERTINENT INFO?YES HAS THE PATIENT BEEN EDUCATED REGARDING HIS/HER PLAN OF CARE?YES 07-24-17 TRIES STRETCHES, DOESN'T USE HOT/COLD, IT MAKES IT WORSE. MEDS HELP. HAS THE PATIENT BEEN EDUCATED REGARDING PAIN, THE RISK FOR PAIN, THE IMPORTANCE OF EFFECTIVE PAIN MANAGEMENT, AND THE PAIN ASSESSMENT PROCESS?YES LATEX QUESTIONNAIRE LATEX ALLERGY : HAVE YOU EVER DEVELOPED ANY TYPE OF REACTION AFTER HANDLING LATEX PRODUCTS SUCH RUBBER GLOVES, CONDOMS, DIAPHRAGMS, BALLOONS, SOCKS, OR UNDERWEAR?NO LATEX ALLERGY : HAVE YOU EVER DEVELOPED ANY TYPE OF REACTION DURING OR AFTER DENTAL APPOINTMENT, VAGINAL/RECTAL EXAMINATION, SURGICAL PROCEDURE, OR ANY OTHER EXPOSURE?NO DATE ASKED : 07/25/2018 LATEX RISK : HAVE YOU EVER HAD ANY DIFFICULTY BREATHING OR HIVES AFTER EATING OR HANDLING ANY FRUITS, OR VEGETABLES; SUCH KIWI, BANANAS, STONE FRUITS, OR CHESTNUTSNO LATEX RISK : DO YOU HAVE A PREVIOUS PERSONAL HISTORY OF MORE THAN NINE SURGERIES, SPINA BIFIDA, OR REPEATED CATHERIZATIONS? NO LATEX RISK : ARE YOU FREQUENTLY EXPOSED TO LATEX PRODUCTS IN YOUR OCCUPATION?NO CAFFEINE CAFFEINE USE?YES HOW OFTEN AND HOW MUCH? 2-3 CANS SODA ADVANCE DIRECTIVE ADVANCE DIRECTIVE DISCUSSED WITH PATIENT:YES SANDEEP WILCOX [phone] MOSQUE [id number] NONE NO JEWISH BELIEFS THAT WOULD IMPACT HEALTH CARE. MARITAL STATUS: .. 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 SEXUAL HX HAD SEX IN THE LAST 12 MONTHS (VAGINAL, ORAL, OR ANAL)?YES WITHWOMEN ONLY USE PROTECTION?NO HAVE YOU EVER HAD AN STD?NO REVIEWED WITH PATIENT 01/29/18 1315 JSREVIEWED WITH PATIENT 11/27/18 0853 [facility]. HOSPITALIZATION/MAJOR DIAGNOSTIC PROCEDURE RELATED TO SURGERY PLEURAL EFFUSION POST SURGERY REVIEW OF SYSTEMS REVIEWED BY: PROVIDER: KARYN PADILLA . CONSTITUTIONAL: ANY CHANGE IN YOUR MEDICAL CONDITION? NO . CHILLS NO . FEVER NO . INFECTION: DO YOU HAVE NEW INFECTIONS? NO . DO YOU HAVE HISTORY OF MRSA? NO . MUSCULOSKELETAL: ANY NEW PATTERNS OF PAIN OR NUMBNESS? NO- NO NEW PATTERNS OF PAIN, PAIN HAS INCREASED ALL OVER HIS WHOLE BODY . GASTROENTEROLOGY: ANY NEW CHANGE IN BOWEL CONTROL? NO . GENITOURINARY: ANY NEW CHANGE IN BLADDER CONTROL? NO . IS THERE A CHANCE YOU COULD BE ? NO . HEMATOLOGY/LYMPH: DO YOU TAKE ANY BLOOD THINNERS? (FOR EXAMPLE- COUMADIN, PLAVIX, AGGRENOX, PLATEL, PRADAXA, OR XARELTO) YES- COUMADIN . WHEN WAS YOUR LAST DOSE? DATE:11/26/18 TIME: 0 . NEUROLOGY: HAVE YOU FALLEN IN THE PAST 12 MONTHS? NO . ANY NEW EXTREMITY NUMBNESS OR WEAKNESS? YES- NUMBNESS IS IN BILATERAL LEGS IN THIGHS, WEAKNESS IS ALL OVER . CARDIOLOGY: DO YOU HAVE A PACEMAKER OR DEFIBRILLATOR? YES- PACER/DEFRIBRILATOR . RESPIRATORY: HAVE YOU BEEN SICK IN THE PAST WEEK? NO . FEVER NO . FLU LIKE SYMPTOMS? NO . COUGH NO . INTEGUMENTARY: DO YOU HAVE ANY RASHES OR OPEN SORES? NO . ALLERGIC/IMMUNO: ARE YOU ALLERGIC TO IV DYE? NO . ANY NEW ALLERGIES? NO . PSYCHIATRIC: DO YOU HAVE THOUGHTS OF HURTING YOURSELF OR SOMEONE ELSE? NO . ARE YOU ABUSED, NEGLECTED, OR IN AN UNSAFE ENVIRONMENT? NO . ENDOCRINOLOGY: ARE YOU DIABETIC? YES . OTHER: DO YOU NEED ANY PRESCRIPTIONS? YES . IF YES, PLEASE LIST: ____NEEDS NORCO REFILLED AND ZONESIMIDE IF WE CONTINUE IT . ANY NEW PROBLEMS WITH YOUR MEDICATIONS? NO . WHEN DID YOU LAST EAT? ____ . WHEN DID YOU LAST DRINK? ____ . WHAT DID YOU LAST DRINK? ____ . NAME OF PERSON DRIVING YOU HOME? ____ . DO YOU HAVE ANY OTHER QUESTIONS OR CONCERNS YES- WANTS TO KNOW IF HE CAN HAVE MDD OF NORCO INCREASED FROM 3 TO 4, AND WANTS SOMETHING FOR NERVE PAIN . VITAL SIGNS WT 290.8 LBS, HT 66", BMI 46.93 INDEX, BP 120/65 MM HG, HR 105 /MIN, RR 18 /MIN, TEMP 96.3 F, OXYGEN SAT % 96%, SAFE IN ENV? (Y/N) YES, NA INITIALS UT 08:56, REVIEWED BY: ROSALES. EXAMINATION GENERAL EXAMINATION: GENERALNO ACUTE DISTRESS, WELL NOURISHED AND HYDRATED. PSYCHAPPROPRIATE MOOD AND AFFECT . LUNGS:CLEAR TO AUSCULTATION BILATERALLY, NO WHEEZES, RHONCHI, RALES. HEART:NO MURMURS, REGULAR RATE AND RHYTHM. ASSESSMENTS LOW BACK PAIN - M54.5 (PRIMARY) TREATMENT LOW BACK PAIN START LYRICA CAPSULE, 50 MG, 1 CAPSULE, ORALLY, THREE TIMES DAILY, 60 DAYS, 90 CONTINUE ZONISAMIDE CAPSULE, 50 MG, 1 CAPSULE DAILY X 7 DAYS THEN 1 CAPSULE EVERY OTHER DAY X 7 DAYS THEN STOP, ORALLY, DIRECTED, 14 DAYS, 11 START CYMBALTA CAPSULE DELAYED RELEASE PARTICLES, 30 MG, 1 CAPSULE, ORALLY, ONCE A DAY X 1 WEEK THEN INCREASE TO BID, 30 DAY(S), 60 CLINICAL NOTES: 38 YEAR OLD MALE IN FOR CHRONIC PAIN FOLLOW UP. HE HAS TRIED GABAPENTIN IN THE PAST AND STATES HE DID NOT LIKE THE WAY IT MADE HIM FEEL. GIVEN PRESENTING SYMPTOMS AND RESULTS OF PHYSICAL EXAMINATION RECOMMENDED USE OF LYRICA HOWEVER THIS WAS DISCUSSED WITH DR. ALEJANDRA AND GIVEN PATIENT'S CARDIAC HX IT WILL NOT BE USED WILL TRY CYMBALTA INSTEAD. WILL START PATIENT ON A ZONISEMIDE TAPER. PATIENT HAS EXPRESSED UNDERSTANDING OF AND WAS IN AGREEMENT WITH TREATMENT PLAN. GIVEN TIME TO ASK QUESTIONS AND EXPRESS CONCERNS. , ISTOP REGISTRY REVIEWED AND DEMONSTRATES COMPLLIANCE. (REF __# [id number] ) BRINGS IN MEDICATIONS WHICH IS APPROPRIATE FOR WHAT WAS DISPENSED. RECENT URINE TOXICOLOGY REVIEWED. NO UNAUTHORIZED MEDICATIONS. NO ILLICIT SUBSTANCES AND PRESCRIBED MEDICATIONS WERE PRESENT. , RISKS AND BENEFITS OF NARCOTIC/OPIOD MEDICATIONS WERE REVIEWED WITH PATIENT - THIS INCLUDES BUT IS NOT LIMITED TO RISK OF DEPENDANCE/DEVELOPMENT OF ADDICTION, MOOD DISTURBANCE AND DEPRESSION, OSTEOPOROSIS, HORMONAL AND LABIDAL CHANGES, RESPIRATORY DEPRESSION AND . PATIENT IS ADVISED NOT TO DRIVE OR DRINK ALCOHOL WHILE ON THESE MEDICATIONS. PROCEDURE CODES FA211 ESTABILISHED PATIENT [facility] CHARGE DISPOSITION & COMMUNICATION ELECTRONICALLY SIGNED BY FAUSTO QUICK ON 12/01/2018 AT 08:45 AM EDT DISCLAIMER : THIS IS A VISIT SUMMARY EXTRACTED FROM THE [facility] CHART. IT IS NOT A COPY OF THE [facility] PROGRESS NOTE. NATED
== END ==
LOC: M PAIN 08:45
PROVIDERS: ATTEND Family Medicine
DX: M54.5 Low back pain (principal); I48.91 Unspecified atrial fibrillation; E78.5 Hyperlipidemia, unspecified; E11.42 Type 2 diabetes mellitus with diabetic polyneuropathy; Z79.01 Long term (current) use of anticoagulants; Z79.4 Long term (current) use of insulin; Z79.891 Long term (current) use of opiate analgesic; Z79.899 Other long term (current) drug therapy; Z87.891 Personal history of nicotine dependence; Z91.048 Other nonmedicinal substance allergy status

== ENCOUNTER → 2019-01-03 | Outpatient (CLI) | payer BC, OTHER ==
[~2019-01-03] MED LIST changes: +LASI40TA9 PO
[2019-01-03 18:44] LABS: BASO # 0.1 10^3/uL (0.0-0.2); BASO % 0.9 % (0.0-1.0); EOS # 0.1 10^3/uL (0.0-0.5); EOS % 0.9 % (0.0-3.0); HEMATOCRIT 48.1 % (42.0-52.0); HEMOGLOBIN 15.7 g/dl (13.5-17.5); LYMPH # 1.4 10^3/uL (1.5-5.0); LYMPH % 14.8 % (24.0-44.0); MEAN CORPUSCULAR HEMOGLOBIN 30.7 pg (27.0-33.0); MEAN CORPUSCULAR HGB CONC 32.6 g/dl (32.0-36.5); MEAN CORPUSCULAR VOLUME 93.9 fl (80.0-96.0); MONO # 0.8 10^3/uL (0.0-0.8); MONO % 8.3 % (0.0-5.0); NEUTROPHILS % 74.8 % (36.0-66.0); PLATELET COUNT, AUTOMATED 326 10^3/uL (150-450); RED BLOOD COUNT 5.12 10^6/uL (4.30-6.10); WHITE BLOOD COUNT 9.3 10^3/uL (4.0-10.0)
[2019-01-03 18:53] LABS: ALBUMIN 3.6 GM/DL (3.2-5.2); ALT/SGPT 33 U/L (12-78); BILIRUBIN,TOTAL 0.8 MG/DL (0.2-1.0); BLOOD UREA NITROGEN 22 MG/DL (7-18); CALCIUM LEVEL 8.7 MG/DL (8.5-10.1); CARBON DIOXIDE LEVEL 27 MEQ/L (21-32); CHLORIDE LEVEL 100 MEQ/L (98-107); CHOLESTEROL LEVEL 193 MG/DL (<200); CHOLESTEROL RISK RATIO 5.078 (<5); CREATININE FOR GFR 1.39 MG/DL (0.70-1.30); FREE T4 0.97 NG/DL (0.76-1.46); GLOMERULAR FILTRATION RATE > 60.0 (>60); GLUCOSE, FASTING 155 MG/DL (70-100); HDL CHOLESTEROL 38 MG/DL (>40); IRON (FE) 61 UG/DL (65-175); LDL CHOLESTEROL 107 MG/DL (<100); NON-HDL-C 155 MG/DL; PERCENT SATURATION 14.2 % (19.7-50.0); POTASSIUM SERUM 3.9 MEQ/L (3.5-5.1); SODIUM LEVEL 138 MEQ/L (136-145); TOTAL IRON BINDING CAPACITY 429 UG/DL (250-450); TOTAL PROTEIN 7.2 GM/DL (6.4-8.2); TRIGLYCERIDES LEVEL 240 MG/DL (<150)
[2019-01-05 10:15] LABS: TOTAL 25(OH) VITAMIN D 21.1 NG/ML (30.0-100.0)
[2019-01-05 10:17] LABS: PTH INTACT 75.2 PG/ML (18.5-88.0); TOTAL T3 113.8 NG/DL (60.0-181.0)
[2019-01-05 10:18] LABS: VITAMIN B12 LEVEL 611 PG/ML (247-911)
[2019-01-05 10:19] LABS: FOLATE 17.2 NG/ML (>5.4)
[2019-01-10 15:10] LABS: C-PEPTIDE 9.1 ng/mL (1.1-4.4); COPPER PLASMA 136 ug/dL (72-166); URINE COTININE LEVEL 509 ng/mL (.); URINE NICOTINE LEVEL 151 ng/mL (.); VITAMIN B1 LEVEL WHOLE BLOOD 197.6 nmol/L (66.5-200.0); ZINC PLASMA 78 ug/dL (56-134)
== END ==
LOC: M WUC 12:01
PROVIDERS: ATTEND Physician Assistant
DX: E66.01 Morbid (severe) obesity due to excess calories (principal)
CPT/HCPCS: 36415; 80053; 80061; 82306; 82525; 82607; 82746; 83036; 83550; 83735; 83970; 84425; 84439; 84443; 84480; 84630; 84681; 85025; G0480

== ENCOUNTER 2019-01-07 16:43 | Emergency (ER) | payer BC, OTHER ==
[~2019-01-07] VITALS: Ht 167.6 cm; Wt 134.4 kg
[~2019-01-07 16:43] MED LIST changes: -LASI40TA9 PO
[2019-01-07] MEDS ORDERED: FUROSEMIDE 100 MG/10 ML VIAL (J1940) IV ONE (17:15)
[2019-01-07 17:41] LABS: BASO # 0.1 10^3/uL (0.0-0.2); EOS # 0.1 10^3/uL (0.0-0.5); EOS % 0.7 % (0.0-3.0); HEMATOCRIT 44.4 % (42.0-52.0); HEMOGLOBIN 14.9 g/dl (13.5-17.5); LYMPH # 1.6 10^3/uL (1.5-5.0); LYMPH % 22.2 % (24.0-44.0); MEAN CORPUSCULAR HGB CONC 33.6 g/dl (32.0-36.5); MEAN CORPUSCULAR VOLUME 92.5 fl (80.0-96.0); MONO # 0.7 10^3/uL (0.0-0.8); MONO % 9.4 % (0.0-5.0); NEUTROPHILS # 4.9 10^3/uL (1.5-8.5); NEUTROPHILS % 66.3 % (36.0-66.0); PLATELET COUNT, AUTOMATED 276 10^3/uL (150-450); WHITE BLOOD COUNT 7.3 10^3/uL (4.0-10.0)
--- NOTE | 2019-01-07 17:41 | REP ---
CHEST, TWO VIEWS: Two views of the chest are performed. There is cardiomegaly again noted. There may be mild diffuse interstitial edema/infiltrate. No consolidating infiltrate is seen. The mediastinal silhouette is unchanged. Left dual lead pacemaker is again noted as well as a prosthetic heart valve. Visualized osseous structures appear unremarkable. IMPRESSION: Cardiomegaly. Possible mild diffuse interstitial edema/infiltrate. Electronically Signed by Awais Ramirez MD 01/08/2019 09:02 A
[2019-01-07 17:44] LABS: APPEARANCE, URINE CLEAR (CLEAR); BACTERIA, URINE AUTO NEGATIVE (NEGATIVE); BILIRUBIN, URINE AUTO NEGATIVE (NEGATIVE); BLOOD, URINE BLOOD NEGATIVE (NEGATIVE); COLOR, URINE YELLOW (YELLOW); GLUCOSE, URINE (UA) AUTO 3+ mg/dL (NEGATIVE); KETONE, URINE AUTO NEGATIVE (NEGATIVE); LEUKOCYTE ESTERASE, URINE AUTO NEGATIVE (NEGATIVE); NITRITE, URINE AUTO NEGATIVE (NEGATIVE); PROTEIN, URINE AUTO NEGATIVE (NEGATIVE); RBC, URINE AUTO 0 /HPF (0-3); SPECIFIC GRAVITY URINE AUTO 1.021 (1.002-1.035); SQUAMOUS EPITHELIAL CELL UR AU 0 /HPF (0-6); UROBILINOGEN, URINE AUTO 0.2 mg/dL (0.0-2.0); WBC, URINE AUTO 0 /HPF (0-3)
[2019-01-07 18:01] LABS: ALBUMIN 3.6 GM/DL (3.2-5.2); ALT/SGPT 32 U/L (12-78); BILIRUBIN,DIRECT 0.2 MG/DL (0.0-0.2); BILIRUBIN,TOTAL 0.7 MG/DL (0.2-1.0); BLOOD UREA NITROGEN 22 MG/DL (7-18); CALCIUM LEVEL 9.1 MG/DL (8.5-10.1); CARBON DIOXIDE LEVEL 27 MEQ/L (21-32); CHLORIDE LEVEL 98 MEQ/L (98-107); CK-MB VALUE MASS 3.7 NG/ML (<3.6); CPK CREATINE PHOSPHOKINASE 207 U/L (39-308); CREATININE FOR GFR 1.31 MG/DL (0.70-1.30); GLOMERULAR FILTRATION RATE > 60.0 (>60); GLUCOSE, FASTING 202 MG/DL (70-100); MB/CK RELATIVE INDEX 1.79 (< OR =4); NT-PRO BNP 3791 PG/ML (<125); POTASSIUM SERUM 3.8 MEQ/L (3.5-5.1); SODIUM LEVEL 136 MEQ/L (136-145); THYROXINE (T4) 6.7 UG/DL (4.5-12.0); TOTAL PROTEIN 7.3 GM/DL (6.4-8.2); TROPONIN I 0.11 NG/ML (< 0.10)
[2019-01-07 20:06] VITALS: BP 121/79
[2019-01-07] MEDS ORDERED: LASI40TA9 PO (20:21)
--- NOTE | 2019-01-07 20:50 | ECGEPIP ---
[facility] - ED Test Date: 2019-01-07 Pat Name: JORDAN JONAS Department: Room: - Gender: Male Practice Lead: : 1980 Requested By: Rajani Doss Order Number: [id number] Reading MD: Rajani Doss Measurements Intervals [place] Rate: 112 P: 59 OK: 143 QRS: 229 QRSD: 142 T: 45 QT: 384 QTc: 524 Interpretive Statements ELECTRONIC VENTRICULAR PACEMAKER ABNORMAL RHYTHM ECG UNDERLYING SINUS INCREASED RATE 10/28/18 Electronically Signed on 01-07-2019 20:50:35 EDT by Rajani Doss
== END 2019-01-07 20:31 | disposition home or self-care (01) ==
LOC: M ED 16:43
DX: R60.0 Localized edema (principal); R00.0 Tachycardia, unspecified; R63.5 Abnormal weight gain; I11.9 Hypertensive heart disease without heart failure; Z95.810 Presence of automatic (implantable) cardiac defibrillator; Z79.899 Other long term (current) drug therapy; Z79.01 Long term (current) use of anticoagulants
CPT/HCPCS: 71046; 80048; 80076; 81001; 82550; 82553; 83880; 84436; 84443; 84484; 85025; 93005; 93041; 94760; 96374; 99285; J1940

== ENCOUNTER → 2019-01-27 | Outpatient (CLI) | payer BC ==
[~2019-01-27] MED LIST changes: +LASI40TA9 PO
== END ==
LOC: M PAIN 09:30
PROVIDERS: ATTEND Family Medicine
DX: E11.42 Type 2 diabetes mellitus with diabetic polyneuropathy (principal); G89.29 Other chronic pain; G47.30 Sleep apnea, unspecified; E78.5 Hyperlipidemia, unspecified; G47.00 Insomnia, unspecified; Z87.891 Personal history of nicotine dependence; Z91.02 Food additives allergy status; Z86.14 Personal history of Methicillin resistant Staphylococcus aureus infection; Z79.01 Long term (current) use of anticoagulants; E66.01 Morbid (severe) obesity due to excess calories; Z68.42 Body mass index [BMI] 45.0-49.9, adult; Z79.4 Long term (current) use of insulin; Z79.891 Long term (current) use of opiate analgesic; Z79.899 Other long term (current) drug therapy

== ENCOUNTER → 2019-01-28 | Outpatient (CLI) | payer BC ==
[2019-01-28 18:24] LABS: CALCIUM LEVEL 9.2 MG/DL (8.5-10.1); CREATININE FOR GFR 1.48 MG/DL (0.70-1.30); GLOMERULAR FILTRATION RATE 57.3 (>60)
== END ==
LOC: M LAB 16:59
PROVIDERS: ATTEND Physician Assistant
DX: I42.0 Dilated cardiomyopathy (principal)

== ENCOUNTER 2019-02-06 17:51 | Emergency (ER) | payer BC ==
[~2019-02-06] VITALS: Ht 167.6 cm; Wt 138.3 kg
[2019-02-06] MEDS ORDERED: FUROSEMIDE 100 MG/10 ML VIAL (J1940) IV ONE (19:30)
[2019-02-06 20:37] LABS: VENOUS BASE EXCESS 3.3 (-2.0-2.0); VENOUS HCO3 28.9 MEQ/L (23.0-27.0); VENOUS O2 SATURATION 96.1 % (60.0-80.0); VENOUS PARTIAL PRESSURE CO2 47.2 mmHg (38.0-50.0); VENOUS PARTIAL PRESSURE O2 83.6 mmHg (30.0-50.0); VENOUS PH 7.405 UNITS (7.330-7.430); VENOUS STANDARD HCO3 27.4 MEQ/L; VENOUS TOTAL CO2 30.4 MEQ/L (24.0-28.0)
[2019-02-06] MEDS ORDERED: PREG50CA PO (20:55)
[2019-02-06] MEDS ORDERED: FLUV25TA2 (20:55)
[2019-02-06] MEDS ORDERED: LYRI75CA PO (20:55)
[2019-02-06 20:57] LABS: BASO # 0.1 10^3/uL (0.0-0.2); BASO % 0.6 % (0.0-1.0); EOS % 0.4 % (0.0-3.0); HEMATOCRIT 45.2 % (42.0-52.0); HEMOGLOBIN 14.5 g/dl (13.5-17.5); LYMPH # 1.3 10^3/uL (1.5-5.0); LYMPH % 15.3 % (24.0-44.0); MEAN CORPUSCULAR HEMOGLOBIN 30.7 pg (27.0-33.0); MEAN CORPUSCULAR HGB CONC 32.1 g/dl (32.0-36.5); MEAN CORPUSCULAR VOLUME 95.8 fl (80.0-96.0); MONO # 0.8 10^3/uL (0.0-0.8); MONO % 9.1 % (0.0-5.0); NEUTROPHILS # 6.3 10^3/uL (1.5-8.5); NEUTROPHILS % 74.1 % (36.0-66.0); PLATELET COUNT, AUTOMATED 233 10^3/uL (150-450); RED BLOOD COUNT 4.72 10^6/uL (4.30-6.10); WHITE BLOOD COUNT 8.5 10^3/uL (4.0-10.0)
[2019-02-06 21:09] LABS: CALCIUM LEVEL 9.1 MG/DL (8.5-10.1); CREATININE FOR GFR 1.49 MG/DL (0.70-1.30); GLOMERULAR FILTRATION RATE 56.8 (>60); POTASSIUM SERUM 3.6 MEQ/L (3.5-5.1)
[2019-02-06 22:19] VITALS: BP 149/82
== END 2019-02-06 22:20 | disposition home or self-care (01) ==
LOC: M ED 17:51
DX: I42.9 Cardiomyopathy, unspecified (principal); I50.9 Heart failure, unspecified; E11.9 Type 2 diabetes mellitus without complications; I11.0 Hypertensive heart disease with heart failure; I48.91 Unspecified atrial fibrillation; E66.8 Other obesity; Z95.0 Presence of cardiac pacemaker; Z79.899 Other long term (current) drug therapy; Z79.84 Long term (current) use of oral hypoglycemic drugs; Z79.01 Long term (current) use of anticoagulants; Z87.891 Personal history of nicotine dependence
CPT/HCPCS: 80048; 82803; 85025; 96374; 99284; J1940

== ENCOUNTER → 2019-02-25 | Outpatient (REF) | payer BC ==
[~2019-02-25] MED LIST changes: +FLUV25TA2; +LYRI75CA PO; +PREG50CA PO
[2019-02-25 15:35] LABS: HEMATOCRIT 47.4 % (42.0-52.0); HEMOGLOBIN 14.7 g/dl (13.5-17.5); MEAN CORPUSCULAR HEMOGLOBIN 29.6 pg (27.0-33.0); MEAN CORPUSCULAR VOLUME 95.4 fl (80.0-96.0); PLATELET COUNT, AUTOMATED 291 10^3/uL (150-450); RED BLOOD COUNT 4.97 10^6/uL (4.30-6.10); WHITE BLOOD COUNT 5.4 10^3/uL (4.0-10.0)
[2019-02-25 16:14] LABS: ALBUMIN 3.5 GM/DL (3.2-5.2); ALT/SGPT 46 U/L (12-78); BILIRUBIN,TOTAL 0.6 MG/DL (0.2-1.0); BLOOD UREA NITROGEN 22 MG/DL (7-18); CALCIUM LEVEL 8.7 MG/DL (8.5-10.1); CARBON DIOXIDE LEVEL 31 MEQ/L (21-32); CHLORIDE LEVEL 94 MEQ/L (98-107); CREATININE FOR GFR 1.28 MG/DL (0.70-1.30); DIGOXIN LEVEL 0.4 NG/ML (0.5-2.0); GLOMERULAR FILTRATION RATE > 60.0 (>60); GLUCOSE, FASTING 318 MG/DL (70-100); MAGNESIUM LEVEL 1.9 MG/DL (1.8-2.4); POTASSIUM SERUM 4.4 MEQ/L (3.5-5.1); SODIUM LEVEL 130 MEQ/L (136-145); TOTAL PROTEIN 7.1 GM/DL (6.4-8.2)
== END ==
LOC: M SHH 14:43
DX: Z51.81 Encounter for therapeutic drug level monitoring (principal); Z79.899 Other long term (current) drug therapy

== ENCOUNTER → 2019-03-04 | Outpatient (REF) | payer BC ==
[2019-03-04 16:01] LABS: HEMATOCRIT 43.7 % (42.0-52.0); HEMOGLOBIN 14.1 g/dl (13.5-17.5); MEAN CORPUSCULAR HEMOGLOBIN 30.3 pg (27.0-33.0); MEAN CORPUSCULAR HGB CONC 32.3 g/dl (32.0-36.5); PLATELET COUNT, AUTOMATED 283 10^3/uL (150-450); RED BLOOD COUNT 4.65 10^6/uL (4.30-6.10); WHITE BLOOD COUNT 6.1 10^3/uL (4.0-10.0)
[2019-03-04 16:10] LABS: ALBUMIN 3.4 GM/DL (3.2-5.2); ALT/SGPT 36 U/L (12-78); BILIRUBIN,TOTAL 0.4 MG/DL (0.2-1.0); BLOOD UREA NITROGEN 17 MG/DL (7-18); CALCIUM LEVEL 9.2 MG/DL (8.5-10.1); CARBON DIOXIDE LEVEL 31 MEQ/L (21-32); CHLORIDE LEVEL 100 MEQ/L (98-107); CREATININE FOR GFR 1.19 MG/DL (0.70-1.30); GLOMERULAR FILTRATION RATE > 60.0 (>60); GLUCOSE, FASTING 187 MG/DL (70-100); POTASSIUM SERUM 4.3 MEQ/L (3.5-5.1); SODIUM LEVEL 137 MEQ/L (136-145); TOTAL PROTEIN 6.8 GM/DL (6.4-8.2)
== END ==
LOC: M SHH 15:31
PROVIDERS: ATTEND Internal Medicine
DX: I50.42 Chronic combined systolic (congestive) and diastolic (congestive) heart failure (principal)

== ENCOUNTER → 2019-03-11 | Outpatient (REF) | payer BC ==
[2019-03-11 16:14] LABS: HEMATOCRIT 45.4 % (42.0-52.0); HEMOGLOBIN 14.5 g/dl (13.5-17.5); MEAN CORPUSCULAR HGB CONC 31.9 g/dl (32.0-36.5); MEAN CORPUSCULAR VOLUME 93.8 fl (80.0-96.0); PLATELET COUNT, AUTOMATED 280 10^3/uL (150-450); RED BLOOD COUNT 4.84 10^6/uL (4.30-6.10); WHITE BLOOD COUNT 6.4 10^3/uL (4.0-10.0)
[2019-03-11 16:28] LABS: ALBUMIN 3.3 GM/DL (3.2-5.2); ALT/SGPT 39 U/L (12-78); BILIRUBIN,TOTAL 0.4 MG/DL (0.2-1.0); BLOOD UREA NITROGEN 17 MG/DL (7-18); CALCIUM LEVEL 8.4 MG/DL (8.5-10.1); CARBON DIOXIDE LEVEL 30 MEQ/L (21-32); CHLORIDE LEVEL 97 MEQ/L (98-107); CREATININE FOR GFR 1.18 MG/DL (0.70-1.30); GLOMERULAR FILTRATION RATE > 60.0 (>60); GLUCOSE, FASTING 320 MG/DL (70-100); SODIUM LEVEL 133 MEQ/L (136-145); TOTAL PROTEIN 6.9 GM/DL (6.4-8.2)
== END ==
LOC: M SHH 15:37
PROVIDERS: ATTEND Physician Assistant
DX: I50.22 Chronic systolic (congestive) heart failure (principal)

== ENCOUNTER → 2019-03-18 | Outpatient (REF) | payer BC ==
[2019-03-18 13:15] LABS: HEMOGLOBIN 14.6 g/dl (13.5-17.5); MEAN CORPUSCULAR HGB CONC 32.4 g/dl (32.0-36.5); MEAN CORPUSCULAR VOLUME 92.4 fl (80.0-96.0); PLATELET COUNT, AUTOMATED 227 10^3/uL (150-450); RED BLOOD COUNT 4.87 10^6/uL (4.30-6.10); WHITE BLOOD COUNT 6.7 10^3/uL (4.0-10.0)
[2019-03-18 13:59] LABS: ALBUMIN 3.3 GM/DL (3.2-5.2); ALT/SGPT 34 U/L (12-78); BILIRUBIN,TOTAL 0.4 MG/DL (0.2-1.0); BLOOD UREA NITROGEN 24 MG/DL (7-18); CALCIUM LEVEL 8.2 MG/DL (8.5-10.1); CARBON DIOXIDE LEVEL 28 MEQ/L (21-32); CHLORIDE LEVEL 96 MEQ/L (98-107); CREATININE FOR GFR 1.18 MG/DL (0.70-1.30); GLOMERULAR FILTRATION RATE > 60.0 (>60); GLUCOSE, FASTING 389 MG/DL (70-100); MAGNESIUM LEVEL 1.9 MG/DL (1.8-2.4); POTASSIUM SERUM 3.7 MEQ/L (3.5-5.1); SODIUM LEVEL 132 MEQ/L (136-145)
== END ==
LOC: M SHH 12:29
PROVIDERS: ATTEND Physician Assistant
DX: I50.22 Chronic systolic (congestive) heart failure (principal)

== ENCOUNTER → 2019-03-25 | Outpatient (REF) | payer BC ==
[2019-03-25 19:04] LABS: HEMATOCRIT 47.7 % (42.0-52.0); HEMOGLOBIN 15.1 g/dl (13.5-17.5); MEAN CORPUSCULAR HEMOGLOBIN 29.5 pg (27.0-33.0); MEAN CORPUSCULAR HGB CONC 31.7 g/dl (32.0-36.5); MEAN CORPUSCULAR VOLUME 93.2 fl (80.0-96.0); PLATELET COUNT, AUTOMATED 270 10^3/uL (150-450); RED BLOOD COUNT 5.12 10^6/uL (4.30-6.10)
[2019-03-26 00:02] LABS: ALBUMIN 3.6 GM/DL (3.2-5.2); ALT/SGPT 32 U/L (12-78); BILIRUBIN,TOTAL 0.8 MG/DL (0.2-1.0); BLOOD UREA NITROGEN 18 MG/DL (7-18); CALCIUM LEVEL 8.8 MG/DL (8.5-10.1); CARBON DIOXIDE LEVEL 28 MEQ/L (21-32); CHLORIDE LEVEL 94 MEQ/L (98-107); CREATININE FOR GFR 1.32 MG/DL (0.70-1.30); GLOMERULAR FILTRATION RATE > 60.0 (>60); GLUCOSE, FASTING 324 MG/DL (70-100); POTASSIUM SERUM 3.6 MEQ/L (3.5-5.1); SODIUM LEVEL 132 MEQ/L (136-145); TOTAL PROTEIN 7.4 GM/DL (6.4-8.2)
== END ==
LOC: M SHH 18:10
PROVIDERS: ATTEND Physician Assistant
DX: I50.23 Acute on chronic systolic (congestive) heart failure (principal)

== ENCOUNTER → 2019-03-27 | Outpatient (REF) | payer BC ==
[2019-03-27 11:04] LABS: BASO # 0.1 10^3/uL (0.0-0.2); BASO % 0.9 % (0.0-1.0); EOS # 0.1 10^3/uL (0.0-0.5); EOS % 0.9 % (0.0-3.0); HEMATOCRIT 49.9 % (42.0-52.0); HEMOGLOBIN 15.9 g/dl (13.5-17.5); LYMPH # 1.1 10^3/uL (1.5-5.0); LYMPH % 13.5 % (24.0-44.0); MEAN CORPUSCULAR HEMOGLOBIN 29.3 pg (27.0-33.0); MEAN CORPUSCULAR HGB CONC 31.9 g/dl (32.0-36.5); MEAN CORPUSCULAR VOLUME 92.1 fl (80.0-96.0); MONO # 0.6 10^3/uL (0.0-0.8); MONO % 7.8 % (0.0-5.0); NEUTROPHILS # 6.3 10^3/uL (1.5-8.5); NEUTROPHILS % 76.4 % (36.0-66.0); PLATELET COUNT, AUTOMATED 283 10^3/uL (150-450); RED BLOOD COUNT 5.42 10^6/uL (4.30-6.10); WHITE BLOOD COUNT 8.2 10^3/uL (4.0-10.0)
[2019-03-27 11:34] LABS: ALBUMIN 3.5 GM/DL (3.2-5.2); ALT/SGPT 30 U/L (12-78); BILIRUBIN,TOTAL 0.6 MG/DL (0.2-1.0); BLOOD UREA NITROGEN 19 MG/DL (7-18); CALCIUM LEVEL 8.9 MG/DL (8.5-10.1); CARBON DIOXIDE LEVEL 28 MEQ/L (21-32); CHLORIDE LEVEL 99 MEQ/L (98-107); CK-MB VALUE MASS 3.7 NG/ML (<3.6); CPK CREATINE PHOSPHOKINASE 129 U/L (39-308); CREATININE FOR GFR 1.33 MG/DL (0.70-1.30); GLOMERULAR FILTRATION RATE > 60.0 (>60); GLUCOSE, FASTING 257 MG/DL (70-100); LIPASE 102 U/L (73-393); MB/CK RELATIVE INDEX 2.87 (< OR =4); NT-PRO BNP 1368 PG/ML (<125); POTASSIUM SERUM 4.2 MEQ/L (3.5-5.1); SODIUM LEVEL 136 MEQ/L (136-145); TOTAL PROTEIN 7.3 GM/DL (6.4-8.2); TROPONIN I 0.07 NG/ML (< 0.10)
== END ==
LOC: M SFHCPLAZ 09:56
PROVIDERS: ATTEND Physician Assistant Medical
DX: I50.42 Chronic combined systolic (congestive) and diastolic (congestive) heart failure (principal)

== ENCOUNTER → 2019-03-30 | Outpatient (CLI) | payer BC, MEDICAID ==
[~2019-03-30] MED LIST changes: +ZONI50CA11 PO; -ZONI50CA3 PO
--- NOTE | 2019-04-02 04:44 | ECWPNPC ---
PATIENT NAME: JORDAN JONAS : 1980 GENDER: MALE VISIT DATE: 03/30/2019 DISCHARGE DATE: 03/30/19 0947 VISIT LOCKED DATE TIME: PHYSICIAN: LUC العلي RESOURCE: LUC العلي REASON FOR APPOINTMENT 1. BACK PAIN/MEDS HISTORY OF PRESENT ILLNESS HISTORY OF PRESENT ILLNESS: PAIN THE PATIENT DESCRIBES THE PAIN... 38 OLD MALE IN FOR CHRONIC PAIN FOLLOW-UP. HE RATES HIS PAIN CURRENTLY AT AN 8 OUT OF 10 AND DESCRIBES IT ACHING, BURNING, SORE, TENDER, SHARP, STABBING, AND SHOOTING. HE FURTHER STATES THE PAIN IS CONTINUOUS. FALL RISK SCREENING: SCREENING :NO FALLS REPORTED IN THE LAST YEAR CURRENT MEDICATIONS TAKING METFORMIN HCL 500 MG TABLET 1 TABLET WITH A MEAL ORALLY TWICE DAILY WITH MEALS TAKING SPIRONOLACTONE 25 MG TABLET 1 TABLET WITH FOOD ORALLY ONCE A DAY TAKING METOPROLOL SUCCINATE ER 50 MG TABLET EXTENDED RELEASE 24 HOUR 1 TABLETS ORALLY TWICE A DAY TAKING COUMADIN 7.5 MG TABLET DIRECTED ORALLY ONCE A DAY TAKING STEGLATRO 15 MG TABLET TAKE ONE TABLET BY MOUTH ONCE DAILY ORALLY DAILY TAKING FLUVOXAMINE MALEATE 25 MG TABLET 1 TABLET ORALLY ONCE A DAY AT BEDTIME, NOTES: TAKE AT BEDTIME TAKING ENTRESTO 24-26 MG TABLET 1 TABLET ORAL TWICE A DAY TAKING TRULICITY 1.5 MG/0.5ML SOLUTION PEN-INJECTOR DIRECTED SUBCUTANEOUS WEEKLY TAKING HYDROXYZINE HCL 50 MG TABLET 1 TABLET NEEDED ORALLY EVERY 8 HRS TAKING ROPINIROLE HCL 1 MG TABLET 1 TABLET ORALLY BID TAKING LYRICA 75 MG CAPSULE 1 CAPSULE ORALLY TWICE DAILY TAKING PRIMACOR IN DEXTROSE 200-5 MCG/ML SOLUTION 0.375 MCG PER MINUTE INTRAVENOUS TAKING GLUCOMETER DIRECTED SUBCUTANEOUSLY DAILY BEFORE BREAKFAST. DX: E11.9 TAKING BLOOD GLUCOSE TEST - STRIP DIRECTED IN VITRO DAILY BEFORE BREAKFAST TAKING NICORETTE 2 MG GUM 1 PIECE NEEDED 24 TIME(S) A DAY MOUTH/THROAT 30 DAYS TAKING MAY HAVE - - PLEASE DISPENSE INR TESTING EQUIPMENT AND MACHINE WEEKLY INR WITH TARGET RANGE 2.5 - 3.5 WITH PANIC VALUES OF <1.5 AND >5 TAKING MAY HAVE - - PLEASE PROVIDE MASK REFIT AND SUPPLIES FOR BIPAP DAILY WHEN SLEEPING TAKING MAY HAVE - - PLEASE DISPENSE INR METER AND SUPPLIES FINGERSTICK WEEKLY OR INSTRUCTED TAKING PROAIR HFA 108 (90 BASE) MCG/ACT AEROSOL SOLUTION 2 PUFFS NEEDED INHALATION EVERY 6 HRS TAKING MAY HAVE - - PLEASE DISPENSE NEBULIZER MACHINE FOR USE WITH LEVALBUTEROL. J45.21 TAKING GLUCOMETER DIRECTED CHECK BLOOD SUGAR TWICE DAILY. DX: Z79.4 TAKING ONE TOUCH ULTRA BLUE STRIPS DIRECTED TWICE DAILY BEFORE BREAKFAST AND DINNER. DX: Z79.4 TAKING GLUCOMETER DISPENSE METER COMPATABLE WITH ONE TOUCH STRIPS TWICE DAILY BEFORE BREAKRFAST AND DINNER. DX: Z79.4 TAKING NORCO 10-325 MG TABLET 1 TABLET ORALLY Q6H PRN MDD3 #70 TAB SHOULD LAST 30 DAYS TAKING ONE TOUCH ULTRA BLUE STRIPS CHECK GLUCOSE BID; DX E11.9 TAKING CONTOUR TEST - STRIP DIRECTED IN VITRO DAILY. Z79.4 TAKING BASAGLAR KWIKPEN 100 UNIT/ML SOLUTION PEN-INJECTOR 5 UNITS SUBCUTANEOUS DAILY TAKING PEN NEEDLES /" DIRECTED THREE TIMES DAILY. DX: Z79.4 TAKING DIGOXIN 125 MCG TABLET DIRECTED ORALLY TAKING BUMETANIDE 1 MG TABLET DIRECTED ORALLY TWICE A DAY TAKING BUMETANIDE 2 MG TABLET DIRECTED ORALLY TWICE A DAY MEDICATION LIST REVIEWED AND RECONCILED WITH THE PATIENT PAST MEDICAL HISTORY MITRAL VALVE REPLACEMENT 11/2015 SLEEP APNEA ON BIPAP ? 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 11/25/2015 FINGER FX REPAIR PACEMAKER/ DEFIBRILLATOR 10/23/17 2 WISDOM TEETH REMOVED 02/2019 FAMILY HISTORY FATHER: ALIVE, HEALTHY MOTHER: ALIVE, RA, 3 VALVES REPLACED, DIAGNOSED WITH UNSPECIFIED HEART DISEASE SIBLINGS: ALIVE 4 BROTHER(S) , 2 SISTER(S) - HEALTHY. SOCIAL HISTORY GENERAL: TOBACCO USE ARE YOU A:CURRENT SOME DAY SMOKER SMOKING CESSATION INFORMATION GIVEN PT HAS HAD THE INFORMATION AND USES GUM BUT HAS SIDE EFFECTS FROM THIS. HIV / HEP-C SCREENING HIV TEST OFFERED TO PATIENT:YES DATE OFFERED:04/23/2016 TEST ACCEPTED:NO HEP-C TEST OFFERED TO PATIENT:YES DATE OFFERED:07/25/2018 REASON:PATIENT DECLINED TEST ACCEPTED:NO REASON:PATIENT DECLINED BROCHURE PROVIDED TO PATIENTYES OTHERS AT HOME: LIVES WITH PARTNER.. EDUCATION LEVEL OF EDUCATION:NOT FINISHED HIGH SCHOOL DIET: CONSISTENT CARBOHYDRATE/HEART HEALTHY /LOW SODIUM. LANGUAGE LANGUAGES SPOKEN:IRISH DOMESTIC VIOLENCE DO YOU FEEL SAFE IN YOUR ENVIRONMENT?YES BMI CARE GOAL FOLLOW-UP ABOVE NORMAL BMI FOLLOW-UPDIETARY MANAGEMENT EDUCATION, GUIDANCE, AND COUNSELING RECREATIONAL DRUG USE DRUG USE?NO PATIENT DENIES ABUSE OR MISSUSED OF ANY MEDICATION. PATIENT DENIES USE OF ANY ILLEGAL SUBSTANCE INCLUDING MARIJUANA OR COCAINE. EXERCISE: NO REGULAR EXERCISE. 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 MEDS HELP. HAS THE PATIENT BEEN EDUCATED REGARDING PAIN, THE RISK FOR PAIN, THE IMPORTANCE OF EFFECTIVE PAIN MANAGEMENT, AND THE PAIN ASSESSMENT PROCESS?YES LATEX QUESTIONNAIRE LATEX ALLERGY : HAVE YOU EVER DEVELOPED ANY TYPE OF REACTION AFTER HANDLING LATEX PRODUCTS SUCH RUBBER GLOVES, CONDOMS, DIAPHRAGMS, BALLOONS, SOCKS, OR UNDERWEAR?NO LATEX ALLERGY : HAVE YOU EVER DEVELOPED ANY TYPE OF REACTION DURING OR AFTER DENTAL APPOINTMENT, VAGINAL/RECTAL EXAMINATION, SURGICAL PROCEDURE, OR ANY OTHER EXPOSURE?NO DATE ASKED : 07/25/2018 LATEX RISK : HAVE YOU EVER HAD ANY DIFFICULTY BREATHING OR HIVES AFTER EATING OR HANDLING ANY FRUITS, OR VEGETABLES; SUCH KIWI, BANANAS, STONE FRUITS, OR CHESTNUTSNO LATEX RISK : DO YOU HAVE A PREVIOUS PERSONAL HISTORY OF MORE THAN NINE SURGERIES, SPINA BIFIDA, OR REPEATED CATHERIZATIONS? NO LATEX RISK : ARE YOU FREQUENTLY EXPOSED TO LATEX PRODUCTS IN YOUR OCCUPATION?NO CAFFEINE CAFFEINE USE?YES HOW OFTEN AND HOW MUCH? 2-3 CANS SODA ADVANCE DIRECTIVE ADVANCE DIRECTIVE DISCUSSED WITH PATIENT:YES SANDEEP WILCOX [phone] BAPTIST [id number] NONE NO FAITH BELIEFS THAT WOULD IMPACT HEALTH CARE. MARITAL STATUS: .. 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 SEXUAL HX HAD SEX IN THE LAST 12 MONTHS (VAGINAL, ORAL, OR ANAL)?YES WITHWOMEN ONLY USE PROTECTION?NO HAVE YOU EVER HAD AN STD?NO REVIEWED WITH PATIENT 01/29/18 1315 JSREVIEWED WITH PATIENT 11/27/18 0853 NLJ. HOSPITALIZATION/MAJOR DIAGNOSTIC PROCEDURE RELATED TO SURGERY PLEURAL EFFUSION POST SURGERY KENNY HEART PROBLEMS 02/2019 REVIEW OF SYSTEMS REVIEWED BY: PROVIDER: KARYN LAMBERT-Dc . CONSTITUTIONAL: ANY CHANGE IN YOUR MEDICAL CONDITION? NO . CHILLS NO . FEVER NO . INFECTION: DO YOU HAVE NEW INFECTIONS? NO . DO YOU HAVE HISTORY OF MRSA? NO . MUSCULOSKELETAL: ANY NEW PATTERNS OF PAIN OR NUMBNESS? YES . GASTROENTEROLOGY: ANY NEW CHANGE IN BOWEL CONTROL? NO . GENITOURINARY: ANY NEW CHANGE IN BLADDER CONTROL? NO . IS THERE A CHANCE YOU COULD BE ? NO . HEMATOLOGY/LYMPH: DO YOU TAKE ANY BLOOD THINNERS? (FOR EXAMPLE- COUMADIN, PLAVIX, AGGRENOX, PLATEL, PRADAXA, OR XARELTO) YES . WHEN WAS YOUR LAST DOSE? DATE: TIME: . NEUROLOGY: HAVE YOU FALLEN IN THE PAST 12 MONTHS? NO . ANY NEW EXTREMITY NUMBNESS OR WEAKNESS? NO . CARDIOLOGY: DO YOU HAVE A PACEMAKER OR DEFIBRILLATOR? NO . RESPIRATORY: HAVE YOU BEEN SICK IN THE PAST WEEK? NO . FEVER NO . FLU LIKE SYMPTOMS? NO . COUGH NO . INTEGUMENTARY: DO YOU HAVE ANY RASHES OR OPEN SORES? NO . ALLERGIC/IMMUNO: ARE YOU ALLERGIC TO IV DYE? NO . ANY NEW ALLERGIES? NO . PSYCHIATRIC: DO YOU HAVE THOUGHTS OF HURTING YOURSELF OR SOMEONE ELSE? NO . ARE YOU ABUSED, NEGLECTED, OR IN AN UNSAFE ENVIRONMENT? NO . ENDOCRINOLOGY: ARE YOU DIABETIC? YES . OTHER: DO YOU NEED ANY PRESCRIPTIONS? YES . IF YES, PLEASE LIST: NORCO 10/325 . ANY NEW PROBLEMS WITH YOUR MEDICATIONS? NO . WHEN DID YOU LAST EAT? ____ . WHEN DID YOU LAST DRINK? ____ . WHAT DID YOU LAST DRINK? ____ . NAME OF PERSON DRIVING YOU HOME? ____ . DO YOU HAVE ANY OTHER QUESTIONS OR CONCERNS YES - INCREASED LEG PAIN AT NIGHT, MEDS . VITAL SIGNS WT 293.6 LBS, HT 66", BMI 47.38 INDEX, BP 114/82 MM HG, HR 114 /MIN, RR 22 /MIN, TEMP 98.6 F, OXYGEN SAT % 95, REVIEWED BY: JOSEF. EXAMINATION GENERAL EXAMINATION: GENERALNO ACUTE DISTRESS, WELL NOURISHED AND HYDRATED. PSYCHAPPROPRIATE MOOD AND AFFECT . LUNGS:CLEAR TO AUSCULTATION BILATERALLY, NO WHEEZES, RHONCHI, RALES. HEART:GRADE 2 MURMUR NOTED HISTORY OF VALVE REPLACEMENT, HEART RATE REGULAR . ASSESSMENTS DIABETIC PERIPHERAL NEUROPATHY - E11.42 (PRIMARY) TREATMENT DIABETIC PERIPHERAL NEUROPATHY REFILL NORCO TABLET, 10-325 MG, 1 TABLET, ORALLY, Q6H PRN MDD3 #75 TAB SHOULD LAST 30 DAYS, 30 DAYS, 75 CLINICAL NOTES: 38-YEAR-OLD MALE IN FOR CHRONIC PAIN FOLLOW-UP. GIVEN PRESENTING SYMPTOMS AND RESULTS OF PHYSICAL EXAMINATION RECOMMENDED INCREASING QUANTITY OF NORCO TO 75 TABLETS TO LAST 30 DAYS. PATIENT HAS EXPRESSED UNDERSTANDING OF AND WAS IN AGREEMENT WITH TREATMENT PLAN. GIVEN TIME TO ASK QUESTIONS AND EXPRESS CONCERNS., ISTOP REGISTRY REVIEWED AND DEMONSTRATES COMPLLIANCE. (REF [id number]) BRINGS IN MEDICATIONS WHICH IS APPROPRIATE FOR WHAT WAS DISPENSED. RECENT URINE TOXICOLOGY REVIEWED. NO UNAUTHORIZED MEDICATIONS. NO ILLICIT SUBSTANCES AND PRESCRIBED MEDICATIONS WERE PRESENT. PROCEDURE CODES FA211 ESTABILISHED PATIENT [facility] CHARGE DISPOSITION & COMMUNICATION FOLLOW UP 3 MONTHS (REASON: CHRONIC PAIN) ELECTRONICALLY SIGNED BY FAUSTO QUICK ON 04/01/2019 AT 10:53 AM EST DISCLAIMER : THIS IS A VISIT SUMMARY EXTRACTED FROM THE [employer] CHART. IT IS NOT A COPY OF THE [employer] PROGRESS NOTE. ELKE
== END ==
LOC: M PAIN 08:45
PROVIDERS: ATTEND Family Medicine
DX: E11.42 Type 2 diabetes mellitus with diabetic polyneuropathy (principal); G89.29 Other chronic pain; G47.30 Sleep apnea, unspecified; E78.5 Hyperlipidemia, unspecified; G47.00 Insomnia, unspecified; F17.210 Nicotine dependence, cigarettes, uncomplicated; Z91.02 Food additives allergy status; E66.01 Morbid (severe) obesity due to excess calories; Z68.42 Body mass index [BMI] 45.0-49.9, adult; Z79.01 Long term (current) use of anticoagulants; Z79.4 Long term (current) use of insulin; Z79.891 Long term (current) use of opiate analgesic; Z79.899 Other long term (current) drug therapy

== ENCOUNTER → 2019-04-03 | Outpatient (REF) | payer BC ==
[~2019-04-03] MED LIST changes: -ZONI50CA11 PO; +ZONI50CA3 PO
[2019-04-03 16:32] LABS: HEMATOCRIT 47.6 % (42.0-52.0); HEMOGLOBIN 15.1 g/dl (13.5-17.5); MEAN CORPUSCULAR HEMOGLOBIN 29.6 pg (27.0-33.0); MEAN CORPUSCULAR HGB CONC 31.7 g/dl (32.0-36.5); MEAN CORPUSCULAR VOLUME 93.3 fl (80.0-96.0); PLATELET COUNT, AUTOMATED 264 10^3/uL (150-450); WHITE BLOOD COUNT 6.4 10^3/uL (4.0-10.0)
[2019-04-03 17:35] LABS: BLOOD UREA NITROGEN 21 MG/DL (7-18); GLOMERULAR FILTRATION RATE > 60.0 (>60); GLUCOSE, FASTING 378 MG/DL (70-100)
[2019-04-03 17:36] LABS: ALBUMIN 3.3 GM/DL (3.2-5.2); ALT/SGPT 28 U/L (12-78); BILIRUBIN,TOTAL 0.5 MG/DL (0.2-1.0); CALCIUM LEVEL 8.2 MG/DL (8.5-10.1); CARBON DIOXIDE LEVEL 29 MEQ/L (21-32); CHLORIDE LEVEL 97 MEQ/L (98-107); MAGNESIUM LEVEL 2.1 MG/DL (1.8-2.4); POTASSIUM SERUM 4.2 MEQ/L (3.5-5.1); SODIUM LEVEL 133 MEQ/L (136-145); TOTAL PROTEIN 6.7 GM/DL (6.4-8.2)
== END ==
LOC: M SHH 16:12
PROVIDERS: ATTEND Physician Assistant
DX: I50.22 Chronic systolic (congestive) heart failure (principal); I50.23 Acute on chronic systolic (congestive) heart failure

== ENCOUNTER → 2019-04-06 | Outpatient (CLI) | payer BC ==
[2019-04-06 17:23] LABS: HEMATOCRIT 48.8 % (42.0-52.0); HEMOGLOBIN 15.4 g/dl (13.5-17.5); MEAN CORPUSCULAR HEMOGLOBIN 29.3 pg (27.0-33.0); MEAN CORPUSCULAR HGB CONC 31.6 g/dl (32.0-36.5); PLATELET COUNT, AUTOMATED 268 10^3/uL (150-450); RED BLOOD COUNT 5.25 10^6/uL (4.30-6.10); WHITE BLOOD COUNT 7.2 10^3/uL (4.0-10.0)
[2019-04-06 17:39] LABS: BLOOD UREA NITROGEN 19 MG/DL (7-18); CALCIUM LEVEL 8.8 MG/DL (8.5-10.1); CARBON DIOXIDE LEVEL 30 MEQ/L (21-32); CHLORIDE LEVEL 100 MEQ/L (98-107); CREATININE FOR GFR 1.23 MG/DL (0.70-1.30); GLOMERULAR FILTRATION RATE > 60.0 (>60); GLUCOSE, FASTING 197 MG/DL (70-100); SODIUM LEVEL 139 MEQ/L (136-145)
[2019-04-06 17:40] LABS: INR 2.44; PROTHROMBIN TIME 26.4 SECONDS (11.8-14.0)
== END ==
LOC: M WUC 14:07
DX: Q21.1 Atrial septal defect (principal)

== ENCOUNTER → 2019-04-16 | Outpatient (REF) | payer BC ==
[2019-04-20 00:07] LABS: ANTINUCLEAR ANTIBODIES DIRECT Negative (Negative); CYCLIC CITRULLINATED PEPTIDE 8 units (0-19)
== END ==
LOC: M SFHCPLAZ 15:25 → M SHH 15:25
PROVIDERS: ATTEND Family Medicine
DX: M13.0 Polyarthritis, unspecified (principal)

== ENCOUNTER → 2019-04-16 | Outpatient (REF) | payer BC ==
[2019-04-16 16:01] LABS: HEMATOCRIT 45.7 % (42.0-52.0); HEMOGLOBIN 14.8 g/dl (13.5-17.5); MEAN CORPUSCULAR HEMOGLOBIN 29.7 pg (27.0-33.0); MEAN CORPUSCULAR HGB CONC 32.4 g/dl (32.0-36.5); MEAN CORPUSCULAR VOLUME 91.8 fl (80.0-96.0); PLATELET COUNT, AUTOMATED 261 10^3/uL (150-450); RED BLOOD COUNT 4.98 10^6/uL (4.30-6.10); WHITE BLOOD COUNT 6.1 10^3/uL (4.0-10.0)
[2019-04-16 17:38] LABS: ALBUMIN 3.4 GM/DL (3.2-5.2); ALT/SGPT 26 U/L (12-78); BILIRUBIN,TOTAL 0.4 MG/DL (0.2-1.0); BLOOD UREA NITROGEN 25 MG/DL (7-18); CALCIUM LEVEL 8.7 MG/DL (8.5-10.1); CARBON DIOXIDE LEVEL 27 MEQ/L (21-32); CHLORIDE LEVEL 93 MEQ/L (98-107); CREATININE FOR GFR 1.38 MG/DL (0.70-1.30); GLOMERULAR FILTRATION RATE > 60.0 (>60); GLUCOSE, FASTING 418 MG/DL (70-100); MAGNESIUM LEVEL 2.2 MG/DL (1.8-2.4); POTASSIUM SERUM 4.9 MEQ/L (3.5-5.1); SODIUM LEVEL 130 MEQ/L (136-145); TOTAL PROTEIN 7.3 GM/DL (6.4-8.2)
== END ==
LOC: M SHH 15:27
PROVIDERS: ATTEND Physician Assistant
DX: I50.22 Chronic systolic (congestive) heart failure (principal)

== ENCOUNTER → 2019-04-22 | Outpatient (REF) | payer BC ==
[2019-04-22 15:08] LABS: HEMOGLOBIN 15.2 g/dl (13.5-17.5); MEAN CORPUSCULAR HEMOGLOBIN 29.2 pg (27.0-33.0); MEAN CORPUSCULAR HGB CONC 31.7 g/dl (32.0-36.5); MEAN CORPUSCULAR VOLUME 92.3 fl (80.0-96.0); PLATELET COUNT, AUTOMATED 244 10^3/uL (150-450); WHITE BLOOD COUNT 5.1 10^3/uL (4.0-10.0)
[2019-04-22 15:37] LABS: ALBUMIN 3.4 GM/DL (3.2-5.2); ALT/SGPT 26 U/L (12-78); BILIRUBIN,TOTAL 0.7 MG/DL (0.2-1.0); BLOOD UREA NITROGEN 18 MG/DL (7-18); CALCIUM LEVEL 8.3 MG/DL (8.5-10.1); CARBON DIOXIDE LEVEL 29 MEQ/L (21-32); CHLORIDE LEVEL 95 MEQ/L (98-107); CREATININE FOR GFR 1.21 MG/DL (0.70-1.30); GLOMERULAR FILTRATION RATE > 60.0 (>60); GLUCOSE, FASTING 327 MG/DL (70-100); POTASSIUM SERUM 4.1 MEQ/L (3.5-5.1); SODIUM LEVEL 133 MEQ/L (136-145); TOTAL PROTEIN 7.2 GM/DL (6.4-8.2)
== END ==
LOC: M SHH 14:37
PROVIDERS: ATTEND Physician Assistant
DX: I50.22 Chronic systolic (congestive) heart failure (principal)

== ENCOUNTER → 2019-05-25 | Outpatient (CLI) | payer MEDICAID ==
[~2019-05-25] MED LIST changes: +ZONI50CA11 PO; -ZONI50CA3 PO
[2019-05-25 13:33] LABS: HEMATOCRIT 37.4 % (42.0-52.0); HEMOGLOBIN 11.7 g/dl (13.5-17.5); MEAN CORPUSCULAR HGB CONC 31.3 g/dl (32.0-36.5); MEAN CORPUSCULAR VOLUME 92.6 fl (80.0-96.0); PLATELET COUNT, AUTOMATED 349 10^3/uL (150-450); RED BLOOD COUNT 4.04 10^6/uL (4.30-6.10); WHITE BLOOD COUNT 7.4 10^3/uL (4.0-10.0)
[2019-05-25 13:45] LABS: INR 3.19; PROTHROMBIN TIME 32.6 SECONDS (11.8-14.0)
[2019-05-25 14:12] LABS: ALBUMIN 3.1 GM/DL (3.2-5.2); ALT/SGPT 32 U/L (12-78); BILIRUBIN,TOTAL 0.4 MG/DL (0.2-1.0); BLOOD UREA NITROGEN 12 MG/DL (7-18); CALCIUM LEVEL 8.9 MG/DL (8.5-10.1); CARBON DIOXIDE LEVEL 26 MEQ/L (21-32); CHLORIDE LEVEL 102 MEQ/L (98-107); CREATININE FOR GFR 1.04 MG/DL (0.70-1.30); DIGOXIN LEVEL 0.3 NG/ML (0.5-2.0); GLOMERULAR FILTRATION RATE > 60.0 (>60); GLUCOSE, FASTING 204 MG/DL (70-100); LDH LACTATE DEHYDROGENASE 389 U/L (87-241); POTASSIUM SERUM 4.6 MEQ/L (3.5-5.1); SODIUM LEVEL 137 MEQ/L (136-145); TOTAL PROTEIN 7.4 GM/DL (6.4-8.2)
== END ==
LOC: M PLALAB 11:15
PROVIDERS: ATTEND Physician Assistant Medical
DX: Z95.811 Presence of heart assist device (principal)

== ENCOUNTER → 2019-06-09 | Outpatient (CLI) | payer MEDICAID ==
[2019-06-09 10:47] LABS: HEMATOCRIT 38.5 % (42.0-52.0); HEMOGLOBIN 12.1 g/dl (13.5-17.5); MEAN CORPUSCULAR HEMOGLOBIN 28.5 pg (27.0-33.0); MEAN CORPUSCULAR HGB CONC 31.4 g/dl (32.0-36.5); MEAN CORPUSCULAR VOLUME 90.6 fl (80.0-96.0); PLATELET COUNT, AUTOMATED 301 10^3/uL (150-450); RED BLOOD COUNT 4.25 10^6/uL (4.30-6.10); WHITE BLOOD COUNT 5.6 10^3/uL (4.0-10.0)
[2019-06-09 11:01] LABS: INR 3.08; PROTHROMBIN TIME 31.8 SECONDS (11.8-14.0)
[2019-06-09 11:29] LABS: ALBUMIN 3.3 GM/DL (3.2-5.2); ALT/SGPT 23 U/L (12-78); BILIRUBIN,TOTAL 0.3 MG/DL (0.2-1.0); BLOOD UREA NITROGEN 14 MG/DL (7-18); CALCIUM LEVEL 9.1 MG/DL (8.5-10.1); CARBON DIOXIDE LEVEL 28 MEQ/L (21-32); CHLORIDE LEVEL 105 MEQ/L (98-107); GLOMERULAR FILTRATION RATE > 60.0 (>60); GLUCOSE, FASTING 170 MG/DL (70-100); LDH LACTATE DEHYDROGENASE 263 U/L (87-241); NT-PRO BNP 1282 PG/ML (<125); POTASSIUM SERUM 4.3 MEQ/L (3.5-5.1); SODIUM LEVEL 140 MEQ/L (136-145); TOTAL PROTEIN 7.4 GM/DL (6.4-8.2)
== END ==
LOC: M PLALAB 08:12
PROVIDERS: ATTEND Physician Assistant Medical
DX: Z95.811 Presence of heart assist device (principal)

== ENCOUNTER → 2019-06-29 | Outpatient (CLI) | payer MEDICAID ==
--- NOTE | 2019-07-01 04:26 | ECWPNPC ---
PATIENT NAME: JORDAN JONAS : 1980 GENDER: MALE VISIT DATE: 06/29/2019 DISCHARGE DATE: 06/29/19 0945 VISIT LOCKED DATE TIME: PHYSICIAN: LUC العلي RESOURCE: LUC العلي REASON FOR APPOINTMENT 1. 3 MONTHS HISTORY OF PRESENT ILLNESS HISTORY OF PRESENT ILLNESS: PAIN THE PATIENT DESCRIBES THE PAINDURING THE LAST MONTH SEVERITY - PAIN SCORE OF8/10 LOCATIONSLOWER BACK, RIGHT HIP, LEFT HIP QUALITYACHING , BURNING, SHARP, STABBING, TENDER, THROBBING, SORE, SHOOTING DURATIONCONTINUOUS, AWAKENS FROM SLEEEP 39-YEAR-OLD MALE IN FOR CHRONIC PAIN FOLLOW-UP. HE RATES HIS PAIN CURRENTLY AT 8 OUT OF 10 AND DESCRIBES IT ACHING, SHARP, BURNING, STABBING, SORE, SHOOTING, AND TENDER. HE FEELS THE MEDICATIONS ARE HELPFUL AND "TAKES THE EDGE OFF" HE DENIES MED SIDE EFFECTS AT THIS TIME. AT LAST CLINIC VISIT HE HAD THE NUMBER OF NORCO TABLETS INCREASED TO 75 AND FELT THIS WAS HELPFUL. FALL RISK SCREENING: SCREENING :NO FALLS REPORTED IN THE LAST YEAR CURRENT MEDICATIONS TAKING COUMADIN 10 MG TABLET DIRECTED ORALLY ONCE A DAY TAKING ENTRESTO 24-26 MG TABLET 1/2 TABLET ORAL TWICE A DAY TAKING FLUVOXAMINE MALEATE 25 MG TABLET 1 TABLET ORALLY ONCE A DAY AT BEDTIME, NOTES: TAKE AT BEDTIME TAKING HYDROXYZINE HCL 50 MG TABLET 1 TABLET NEEDED ORALLY EVERY 8 HRS TAKING MAY HAVE - - PLEASE DISPENSE INR TESTING EQUIPMENT AND MACHINE WEEKLY INR WITH TARGET RANGE 2.5 - 3.5 WITH PANIC VALUES OF <1.5 AND >5 TAKING MAY HAVE - - PLEASE PROVIDE MASK REFIT AND SUPPLIES FOR BIPAP DAILY WHEN SLEEPING TAKING MAY HAVE - - PLEASE DISPENSE INR METER AND SUPPLIES FINGERSTICK WEEKLY OR INSTRUCTED TAKING PROAIR HFA 108 (90 BASE) MCG/ACT AEROSOL SOLUTION 2 PUFFS NEEDED INHALATION EVERY 6 HRS TAKING MAY HAVE - - PLEASE DISPENSE NEBULIZER MACHINE FOR USE WITH LEVALBUTEROL. J45.21 TAKING ONE TOUCH ULTRA BLUE STRIPS DIRECTED TWICE DAILY BEFORE BREAKFAST AND DINNER. DX: Z79.4 TAKING ONE TOUCH ULTRA BLUE STRIPS CHECK GLUCOSE BID; DX E11.9 TAKING CONTOUR TEST - STRIP DIRECTED IN VITRO DAILY. Z79.4 TAKING PEN NEEDLES 316" 31G X 5 MM MISCELLANEOUS DIRECTED SUBCUTANEOUSLY DAILY TAKING METFORMIN HCL 1000 MG TABLET 1 TABLET WITH A MEAL ORALLY TWICE DAILY WITH MEALS TAKING TRULICITY 1.5 MG/0.5ML SOLUTION PEN-INJECTOR DIRECTED SUBCUTANEOUS WEEKLY TAKING TORSEMIDE 10 MG TABLET 1 TABLET ORALLY ONCE A DAY TAKING OPTIFOAM 4"X4" PAD DIRECTED CHANGE ONCE EVERY 3 DAYS TAKING NORCO 10-325 MG TABLET 1 TABLET ORALLY Q6H PRN MDD3 #75 TAB SHOULD LAST 30 DAYS TAKING BLOOD GLUCOSE TEST - STRIP DIRECTED IN VITRO QID; DX E11.9 TAKING GLUCOMETER DIRECTED SUBCUTANEOUSLY DAILY BEFORE BREAKFAST. DX: E11.9 TAKING LANCETS - MISCELLANEOUS DIRECTED QID; DX E11.9 NOT-TAKING STEGLATRO 15 MG TABLET TAKE ONE TABLET BY MOUTH ONCE DAILY ORALLY DAILY NOT-TAKING DIGOXIN 125 MCG TABLET DIRECTED ORALLY NOT-TAKING BUMETANIDE 2 MG TABLET DIRECTED ORALLY TWICE A DAY NOT-TAKING LYRICA 75 MG CAPSULE 1 CAPSULE ORALLY TWICE DAILY NOT-TAKING AMIODARONE HCL 200 MG TABLET 1 TABLET ORALLY TWICE A DAY NOT-TAKING ROPINIROLE HCL 1 MG TABLET 1 TABLET ORALLY BID MEDICATION LIST REVIEWED AND RECONCILED WITH THE PATIENT PAST MEDICAL HISTORY MITRAL VALVE REPLACEMENT 11/2015 SLEEP APNEA ON BIPAP ? 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 SURGICAL HISTORY MITRAL VALVE REPLACEMENT; DUE TO ENDOCARDITIS? 11/25/2015 FINGER FX REPAIR PACEMAKER/ DEFIBRILLATOR 10/23/17 2 WISDOM TEETH REMOVED 02/2019 LVAD 04/28/2019 FAMILY HISTORY FATHER: ALIVE, HEALTHY MOTHER: ALIVE, RA, 3 VALVES REPLACED, DIAGNOSED WITH UNSPECIFIED HEART DISEASE SIBLINGS: ALIVE 4 BROTHER(S) , 2 SISTER(S) - HEALTHY. SOCIAL HISTORY GENERAL: TOBACCO USE ARE YOU A:NONSMOKER OTHERS AT HOME: [place]. EDUCATION LEVEL OF EDUCATION:HIGH SCHOOL DIET: CONSISTENT CARBOHYDRATE, DASH DIET. LANGUAGE LANGUAGES SPOKEN:MAURITANIAN RECREATIONAL DRUG USE DRUG USE?NO EXERCISE: NONE. LEARNING BARRIERS / SPECIAL NEEDS BARRIERS TO LEARNING?NO LATEX QUESTIONNAIRE LATEX ALLERGY : HAVE YOU EVER DEVELOPED ANY TYPE OF REACTION AFTER HANDLING LATEX PRODUCTS SUCH RUBBER GLOVES, CONDOMS, DIAPHRAGMS, BALLOONS, SOCKS, OR UNDERWEAR?NO CAFFEINE CAFFEINE USE?YES HOW OFTEN AND HOW MUCH? 2/DAY SAMARITAN SAMARITAN NO ORIENTAL ORTHODOX BELIEFS THAT WOULD IMPACT HEALTH CARE. MARITAL STATUS: ENGAGED. ALCOHOL SCREENING DID YOU HAVE A DRINK CONTAINING ALCOHOL IN THE PAST YEAR?NO POINTS0 INTERPRETATIONNEGATIVE OCCUPATION: UNEMPLOYED. HOSPITALIZATION/MAJOR DIAGNOSTIC PROCEDURE RELATED TO SURGERY PLEURAL EFFUSION POST SURGERY KENNY HEART PROBLEMS 02/2019 HEART ISSUES 03/2019 OPEN HEART SURGERY 04/2019 REVIEW OF SYSTEMS REVIEWED BY: PROVIDER: KARYN LAMBERT-Dc . CONSTITUTIONAL: ANY CHANGE IN YOUR MEDICAL CONDITION? NO . CHILLS NO . FEVER NO . INFECTION: DO YOU HAVE NEW INFECTIONS? YES, PT HAD PNUEMONIA IN 04/2019 . DO YOU HAVE HISTORY OF MRSA? YES, 6 YEARS AGO . MUSCULOSKELETAL: ANY NEW PATTERNS OF PAIN OR NUMBNESS? YES.NEW PAIN IN LOWER BACK , TAIL BONE AND SPOTS AT BOTTOM OF FEET . GASTROENTEROLOGY: ANY NEW CHANGE IN BOWEL CONTROL? NO . GENITOURINARY: ANY NEW CHANGE IN BLADDER CONTROL? NO . IS THERE A CHANCE YOU COULD BE ? NO . HEMATOLOGY/LYMPH: DO YOU TAKE ANY BLOOD THINNERS? (FOR EXAMPLE- COUMADIN, PLAVIX, AGGRENOX, PLATEL, PRADAXA, OR XARELTO) YES, COUMADIN . WHEN WAS YOUR LAST DOSE? DATE: 06/28/19 TIME: 10PM . NEUROLOGY: HAVE YOU FALLEN IN THE PAST 12 MONTHS? NO . ANY NEW EXTREMITY NUMBNESS OR WEAKNESS? NO . CARDIOLOGY: DO YOU HAVE A PACEMAKER OR DEFIBRILLATOR? YES, PACEMAKER AND DEFIBRILLATOR . RESPIRATORY: HAVE YOU BEEN SICK IN THE PAST WEEK? NO . FEVER NO . FLU LIKE SYMPTOMS? NO . COUGH NO . INTEGUMENTARY: DO YOU HAVE ANY RASHES OR OPEN SORES? YES, DEEP TISSUE WOUND( BED SORE) . ALLERGIC/IMMUNO: ARE YOU ALLERGIC TO IV DYE? NO . ANY NEW ALLERGIES? NO . PSYCHIATRIC: DO YOU HAVE THOUGHTS OF HURTING YOURSELF OR SOMEONE ELSE? NO . ARE YOU ABUSED, NEGLECTED, OR IN AN UNSAFE ENVIRONMENT? NO . ENDOCRINOLOGY: ARE YOU DIABETIC? YES . OTHER: DO YOU NEED ANY PRESCRIPTIONS? YES, REFILL FOR NORCO 10-325 . IF YES, PLEASE LIST: ____ . ANY NEW PROBLEMS WITH YOUR MEDICATIONS? NO . WHEN DID YOU LAST EAT? ____ . WHEN DID YOU LAST DRINK? ____ . WHAT DID YOU LAST DRINK? ____ . NAME OF PERSON DRIVING YOU HOME? ____ . DO YOU HAVE ANY OTHER QUESTIONS OR CONCERNS NO . VITAL SIGNS WT 290 LBS, HT 66", BMI 46.80 INDEX, BP UNABLE, HR 98 /MIN, RR 20 /MIN, TEMP 98.4 F, OXYGEN SAT % 94, BLOOD GLUCOSE LEVEL 165 THIS AM, SAFE IN ENV? (Y/N) YES, REVIEWED BY: MAREN NANCE LPN. EXAMINATION GENERAL EXAMINATION: GENERALNO ACUTE DISTRESS, WELL NOURISHED AND HYDRATED. PSYCHAPPROPRIATE MOOD AND AFFECT . LUNGS:CLEAR TO AUSCULTATION BILATERALLY, NO WHEEZES, RHONCHI, RALES. HEART: LVAD IN PLACE. ASSESSMENTS DIABETIC PERIPHERAL NEUROPATHY - E11.42 (PRIMARY) TREATMENT DIABETIC PERIPHERAL NEUROPATHY REFILL NORCO TABLET, 10-325 MG, 1 TABLET, ORALLY, Q6H PRN MDD3 #75 TAB SHOULD LAST 30 DAYS, 30 DAYS, 75 CLINICAL NOTES: 38-YEAR-OLD MALE IN FOR CHRONIC PAIN FOLLOW-UP. GIVEN PRESENTING SYMPTOMS AND RESULTS OF PHYSICAL EXAMINATION RECOMMENDED CONTINUATION OF CURRENT MEDICATION REGIMEN WITH FOLLOW-UP IN 3 MONTHS. PATIENT HAS EXPRESSED UNDERSTANDING OF AND WAS IN AGREEMENT WITH TREATMENT PLAN. GIVEN TIME TO ASK QUESTIONS AND EXPRESS CONCERNS., ISTOP REGISTRY REVIEWED AND DEMONSTRATES COMPLLIANCE. (REF [id number]) BRINGS IN MEDICATIONS WHICH IS APPROPRIATE FOR WHAT WAS DISPENSED. RECENT URINE TOXICOLOGY REVIEWED. NO UNAUTHORIZED MEDICATIONS. NO ILLICIT SUBSTANCES AND PRESCRIBED MEDICATIONS WERE PRESENT. PROCEDURE CODES FA211 ESTABILISHED PATIENT [facility]AC[facility] CHARGE DISPOSITION & COMMUNICATION FOLLOW UP 3 MONTHS (REASON: NEUROPATHY) ELECTRONICALLY SIGNED BY FAUSTO QUICK ON 06/30/2019 AT 09:14 AM EDT DISCLAIMER : THIS IS A VISIT SUMMARY EXTRACTED FROM THE [employer] CHART. IT IS NOT A COPY OF THE [employer] PROGRESS NOTE. MTDD
== END ==
LOC: M PAIN 08:45
PROVIDERS: ATTEND Family Medicine
DX: E11.42 Type 2 diabetes mellitus with diabetic polyneuropathy (principal); G89.29 Other chronic pain; G47.30 Sleep apnea, unspecified; E78.5 Hyperlipidemia, unspecified; G47.00 Insomnia, unspecified; Z95.0 Presence of cardiac pacemaker; Z86.14 Personal history of Methicillin resistant Staphylococcus aureus infection; Z79.01 Long term (current) use of anticoagulants; E66.01 Morbid (severe) obesity due to excess calories; Z68.42 Body mass index [BMI] 45.0-49.9, adult; Z79.84 Long term (current) use of oral hypoglycemic drugs; Z79.891 Long term (current) use of opiate analgesic; Z79.899 Other long term (current) drug therapy

== ENCOUNTER → 2019-07-27 | Outpatient (REF) | payer OTHER, MEDICAID ==
[2019-07-27 13:39] LABS: INR 2.21; PROTHROMBIN TIME 24.3 SECONDS (11.8-14.0)
== END ==
LOC: M SFHCPLAZ 12:30
PROVIDERS: ATTEND Family Medicine
DX: Z95.2 Presence of prosthetic heart valve (principal)

== ENCOUNTER → 2019-08-10 | Outpatient (CLI) | payer OTHER, MEDICAID ==
[2019-08-10 17:50] LABS: INR 2.15; PROTHROMBIN TIME 23.8 SECONDS (11.8-14.0)
== END ==
LOC: M PLALAB 15:41
PROVIDERS: ATTEND Family Medicine
DX: Z95.2 Presence of prosthetic heart valve (principal)

== ENCOUNTER → 2019-08-10 | Outpatient (CLI) | payer OTHER, MEDICAID ==
[2019-08-10 18:02] LABS: HEMOGLOBIN A1c 7.1 %
== END ==
LOC: M PLALAB 15:42
DX: E11.69 Type 2 diabetes mellitus with other specified complication (principal)

== ENCOUNTER 2019-08-25 14:21 | Emergency (ER) | payer MEDICAID, OTHER ==
[~2019-08-25] VITALS: Ht 167.6 cm; Wt 127.3 kg
[2019-08-25] MEDS ORDERED: NS 500 ML IV ONE (14:45)
[2019-08-25 14:49] VITALS: BP_SYST 98
[2019-08-25 15:20] LABS: BASO # 0.1 10^3/uL (0.0-0.2); BASO % 0.4 % (0.0-1.0); EOS # 0.1 10^3/uL (0.0-0.5); EOS % 0.9 % (0.0-3.0); HEMOGLOBIN 16.3 g/dl (13.5-17.5); LYMPH # 1.1 10^3/uL (1.5-5.0); LYMPH % 9.2 % (24.0-44.0); MEAN CORPUSCULAR HEMOGLOBIN 28.8 pg (27.0-33.0); MEAN CORPUSCULAR HGB CONC 33.3 g/dl (32.0-36.5); MEAN CORPUSCULAR VOLUME 86.7 fl (80.0-96.0); MONO # 0.8 10^3/uL (0.0-0.8); MONO % 7.1 % (0.0-5.0); NEUTROPHILS # 9.4 10^3/uL (1.5-8.5); NEUTROPHILS % 82.1 % (36.0-66.0); PLATELET COUNT, AUTOMATED 257 10^3/uL (150-450); RED BLOOD COUNT 5.65 10^6/uL (4.30-6.10); WHITE BLOOD COUNT 11.5 10^3/uL (4.0-10.0)
[2019-08-25 15:48] LABS: ALBUMIN 4.1 GM/DL (3.2-5.2); ALT/SGPT 38 U/L (12-78); BILIRUBIN,DIRECT 0.2 MG/DL (0.0-0.2); BILIRUBIN,TOTAL 0.8 MG/DL (0.2-1.0); BLOOD UREA NITROGEN 22 MG/DL (7-18); CALCIUM LEVEL 9.4 MG/DL (8.5-10.1); CARBON DIOXIDE LEVEL 25 MEQ/L (21-32); CHLORIDE LEVEL 106 MEQ/L (98-107); CREATININE FOR GFR 1.12 MG/DL (0.70-1.30); GLOMERULAR FILTRATION RATE > 60.0 (>60); GLUCOSE, FASTING 187 MG/DL (70-100); LIPASE 45 U/L (73-393); POTASSIUM SERUM 4.1 MEQ/L (3.5-5.1); SODIUM LEVEL 137 MEQ/L (136-145); TOTAL PROTEIN 8.4 GM/DL (6.4-8.2)
== END 2019-08-25 18:38 | disposition home or self-care (01) ==
LOC: EDBD 14:21 → M ED 14:21
DX: R42 Dizziness and giddiness (principal); R19.7 Diarrhea, unspecified; Z79.899 Other long term (current) drug therapy
CPT/HCPCS: 80048; 80076; 83690; 85025; 87507; 96360; 99284; C9803; U0003

== ENCOUNTER → 2019-09-14 | Outpatient (CLI) | payer OTHER, MEDICAID ==
--- NOTE | 2019-09-16 03:35 | ECWPNPC ---
PATIENT NAME: JORDAN JONAS : 1980 GENDER: MALE VISIT DATE: 09/14/2019 DISCHARGE DATE: 09/14/19 1156 VISIT LOCKED DATE TIME: PHYSICIAN: LUC العلي RESOURCE: LUC العلي REASON FOR APPOINTMENT 1. 3 MONTHS NEUROPATHY; [phone] PAT DONE HISTORY OF PRESENT ILLNESS GENERAL: -39-YEAR-OLD MALE IN FOR CHRONIC PAIN FOLLOW-UP. HE FEELS THE MEDICATIONS ARE HELPFUL AND DENIES MED SIDE EFFECTS AT THIS TIME. PAIN SCREENING: PATIENT HAS A COMPLAINT OF ACUTE OR CHRONIC PAIN :YES LOCATION OF PAIN:LOW BACK, LEFT HIP, RIGHT HIP, FEET INTENSITY OF PAIN (SCALE OF 1 TO 10):6 WHAT DOES YOUR PAIN FEEL LIKE:ACHING, BURNING, SHARP, STABBING, THROBBING DURATION:CONTINOUS, CONSTANT, ALL DAY PAIN IS INCREASED BY:ACTIVITIES, PROLONGED STANDING PAIN IS DECREASED BY:USE OF PAIN MEDICATIONS, SITTING PLAN/GOALS/TREATMENT/INTERVENTION/FOLLOW UP:SEE PLAN FALL RISK SCREENING: SCREENING :NO FALLS REPORTED IN THE LAST YEAR DEPRESSION SCREENING: PHQ-2 (2015 EDITION) LITTLE INTEREST OR PLEASURE IN DOING THINGS?NOT AT ALL FEELING DOWN, DEPRESSED, OR HOPELESS?NOT AT ALL TOTAL SCORE0 PAIN CENTER INTAKE QUESTIONS: DO YOU HAVE A HISTORY OF MRSA? :NO DO YOU TAKE A BLOOD THINNERS? :YES 09/10/19, 3PM COUMADIN DO YOU HAVE ANY BLEEDING DISORDERS? :NO ANY NEW NUMBNESS OR WEAKNESS IN YOUR LEGS OR ARMS? :YES NUMBNESS AND THROBBING IN BOTH FEET ANY PACEMAKER,DEFIBRILLATOR, OR DORSAL COLUMN STIMULATOR? :NO DO YOU HAVE ANY RASHES OR OPEN SORES? :NO ARE YOU ALLERGIC TO IV DYE? :NO ARE YOU DIABETIC? :YES ANY NEW PROBLEMS WITH YOUR MEDICATIONS? :NO HAVE YOU RECEIVED A VACCINE IN THE PAST 30 DAYS? :NO DO YOU PLAN TO RECEIVE A VACCINE IN THE NEXT 21 DAYS? :NO DO YOU NEED ANY PRESCRIPTION? :YES REFILL NORCO DO YOU TAKE ANY IMMUNOSUPPRESSIVE MEDICATIONS? :NO NURSING NOTE: -. CURRENT MEDICATIONS TAKING COUMADIN 10 MG TABLET DIRECTED ORALLY ONCE A DAY TAKING ENTRESTO 24-26 MG TABLET 1/2 TABLET ORAL TWICE A DAY TAKING FLUVOXAMINE MALEATE 25 MG TABLET 1 TABLET ORALLY ONCE A DAY AT BEDTIME, NOTES: TAKE AT BEDTIME TAKING HYDROXYZINE HCL 50 MG TABLET 1 TABLET NEEDED ORALLY EVERY 8 HRS TAKING MAY HAVE - - PLEASE DISPENSE INR TESTING EQUIPMENT AND MACHINE WEEKLY INR WITH TARGET RANGE 2.5 - 3.5 WITH PANIC VALUES OF <1.5 AND >5 TAKING MAY HAVE - - PLEASE PROVIDE MASK REFIT AND SUPPLIES FOR BIPAP DAILY WHEN SLEEPING TAKING MAY HAVE - - PLEASE DISPENSE INR METER AND SUPPLIES FINGERSTICK WEEKLY OR INSTRUCTED TAKING PROAIR HFA 108 (90 BASE) MCG/ACT AEROSOL SOLUTION 2 PUFFS NEEDED INHALATION EVERY 6 HRS TAKING MAY HAVE - - PLEASE DISPENSE NEBULIZER MACHINE FOR USE WITH LEVALBUTEROL. J45.21 TAKING ONE TOUCH ULTRA BLUE STRIPS DIRECTED TWICE DAILY BEFORE BREAKFAST AND DINNER. DX: Z79.4 TAKING ONE TOUCH ULTRA BLUE STRIPS CHECK GLUCOSE BID; DX E11.9 TAKING CONTOUR TEST - STRIP DIRECTED IN VITRO DAILY. Z79.4 TAKING PEN NEEDLES 3/16" 31G X 5 MM MISCELLANEOUS DIRECTED SUBCUTANEOUSLY DAILY TAKING METFORMIN HCL 1000 MG TABLET 1 TABLET WITH A MEAL ORALLY TWICE DAILY WITH MEALS TAKING TRULICITY 1.5 MG/0.5ML SOLUTION PEN-INJECTOR DIRECTED SUBCUTANEOUS WEEKLY TAKING TORSEMIDE 10 MG TABLET 1 TABLET ORALLY ONCE A DAY TAKING OPTIFOAM 4"X4" PAD DIRECTED CHANGE ONCE EVERY 3 DAYS TAKING BLOOD GLUCOSE TEST - STRIP DIRECTED IN VITRO QID; DX E11.9 TAKING GLUCOMETER DIRECTED SUBCUTANEOUSLY DAILY BEFORE BREAKFAST. DX: E11.9 TAKING LANCETS - MISCELLANEOUS DIRECTED QID; DX E11.9 TAKING STEGLATRO 15 MG TABLET TAKE ONE TABLET BY MOUTH ONCE DAILY ORALLY DAILY TAKING DIGOXIN 125 MCG TABLET DIRECTED ORALLY TAKING BUMETANIDE 2 MG TABLET DIRECTED ORALLY TWICE A DAY TAKING LYRICA 75 MG CAPSULE 1 CAPSULE ORALLY TWICE DAILY TAKING ROPINIROLE HCL 1 MG TABLET 1 TABLET ORALLY BID TAKING NORCO 10-325 MG TABLET 1 TABLET ORALLY Q6H PRN MDD3 #75 TAB SHOULD LAST 30 DAYS NOT-TAKING AMIODARONE HCL 200 MG TABLET 1 TABLET ORALLY TWICE A DAY MEDICATION LIST REVIEWED AND RECONCILED WITH THE PATIENT ALLERGIES NO[ALLERGIES VERIFIED] REVIEW OF SYSTEMS CONSTITUTIONAL: ANY RECENT FEVER OR ILLNESS NO . CHILLS NO . GASTROENTEROLOGY: BOWEL INCONTINENCE NO . ANY NEW CHANGE IN BOWEL CONTROL? NO . ABDOMINAL PAIN NO . CONSTIPATION NO . GENITOURINARY: ANY NEW CHANGE IN BLADDER CONTROL? NO . URINARY INCONTINENCE NO . CARDIOLOGY: CHEST PRESSURE NO . CHEST PAIN NO . RESPIRATORY: COUGH NO . SHORTNESS OF BREATH NO . EXAMINATION GENERAL EXAMINATION: GENERALNO ACUTE DISTRESS, WELL NOURISHED AND HYDRATED. PSYCHAPPROPRIATE MOOD AND AFFECT , ORIENTED X 3. ASSESSMENTS NEUROPATHY - G62.9 (PRIMARY) TREATMENT NEUROPATHY CLINICAL NOTES: 39-YEAR-OLD MALE IN FOR CHRONIC PAIN FOLLOW-UP. GIVEN PRESENTING SYMPTOMS RECOMMENDED CONTINUATION OF CURRENT MEDICATION REGIMEN WITH FOLLOW-UP IN 3 MONTHS. PATIENT HAS EXPRESSED UNDERSTANDING OF AND WAS IN AGREEMENT WITH TREATMENT PLAN. GIVEN TIME TO ASK QUESTIONS AND EXPRESS CONCERNS. , ISTOP REGISTRY REVIEWED AND DEMONSTRATES COMPLLIANCE. (REF # [id number] ) BRINGS IN MEDICATIONS WHICH IS APPROPRIATE FOR WHAT WAS DISPENSED. RECENT URINE TOXICOLOGY REVIEWED. NO UNAUTHORIZED MEDICATIONS. NO ILLICIT SUBSTANCES AND PRESCRIBED MEDICATIONS WERE PRESENT. VISIT CONDUCTED VIA ZOOM. TIME SPENT WITH PATIENT 5 MINUTES. OTHERS NOTES: VITALS NOT OBTAINED DUE TO VIRTUAL VISIT, PRE-SCREENING COMPLETED, 09/11/19, NA. DISPOSITION & COMMUNICATION FOLLOW UP 3 MONTHS (REASON: NEUROPATHY) ELECTRONICALLY SIGNED BY FAUSTO QUICK ON 09/15/2019 AT 01:50 PM EDT DISCLAIMER : THIS IS A VISIT SUMMARY EXTRACTED FROM THE [employer] CHART. IT IS NOT A COPY OF THE [employer] PROGRESS NOTE. ELKE
== END ==
LOC: M TMPAIN 10:00 → M PAIN 10:00
PROVIDERS: ATTEND Family Medicine
DX: G62.9 Polyneuropathy, unspecified (principal)

== ENCOUNTER → 2019-09-30 | Outpatient (REF) | payer OTHER, MEDICAID ==
[2019-09-30 17:10] LABS: HEMATOCRIT 44.9 % (42.0-52.0); MEAN CORPUSCULAR HEMOGLOBIN 29.3 pg (27.0-33.0); MEAN CORPUSCULAR HGB CONC 33.4 g/dl (32.0-36.5); MEAN CORPUSCULAR VOLUME 87.7 fl (80.0-96.0); PLATELET COUNT, AUTOMATED 242 10^3/uL (150-450); RED BLOOD COUNT 5.12 10^6/uL (4.30-6.10); WHITE BLOOD COUNT 6.4 10^3/uL (4.0-10.0)
[2019-09-30 17:15] LABS: ALBUMIN 3.7 GM/DL (3.2-5.2); ALT/SGPT 33 U/L (12-78); BILIRUBIN,TOTAL 0.5 MG/DL (0.2-1.0); BLOOD UREA NITROGEN 17 MG/DL (7-18); CALCIUM LEVEL 9.4 MG/DL (8.5-10.1); CARBON DIOXIDE LEVEL 30 MEQ/L (21-32); CHLORIDE LEVEL 104 MEQ/L (98-107); CREATININE FOR GFR 1.14 MG/DL (0.70-1.30); GLOMERULAR FILTRATION RATE > 60.0 (>60); GLUCOSE, FASTING 185 MG/DL (70-100); LDH LACTATE DEHYDROGENASE 267 U/L (87-241); NT-PRO BNP 816 PG/ML (<125); POTASSIUM SERUM 3.9 MEQ/L (3.5-5.1); SODIUM LEVEL 139 MEQ/L (136-145); TOTAL PROTEIN 7.3 GM/DL (6.4-8.2)
[2019-09-30 17:54] LABS: INR 3.32; PROTHROMBIN TIME 33.7 SECONDS (11.8-14.0)
== END ==
LOC: M PLALAB 16:42
PROVIDERS: ATTEND Physician Assistant Medical
DX: Z95.811 Presence of heart assist device (principal)

== ENCOUNTER → 2019-12-29 | Outpatient (CLI) | payer OTHER, MEDICAID ==
[2019-12-29 17:09] LABS: HEMOGLOBIN 14.4 g/dl (13.5-17.5); MEAN CORPUSCULAR HEMOGLOBIN 30.6 pg (27.0-33.0); MEAN CORPUSCULAR HGB CONC 33.5 g/dl (32.0-36.5); MEAN CORPUSCULAR VOLUME 91.3 fl (80.0-96.0); PLATELET COUNT, AUTOMATED 213 10^3/uL (150-450); RED BLOOD COUNT 4.71 10^6/uL (4.30-6.10); WHITE BLOOD COUNT 5.3 10^3/uL (4.0-10.0)
[2019-12-29 17:21] LABS: HEMOGLOBIN A1c 7.2 %
[2019-12-29 17:22] LABS: INR 3.27
[2019-12-29 17:46] LABS: ALBUMIN 3.8 GM/DL (3.2-5.2); ALT/SGPT 34 U/L (12-78); BILIRUBIN,TOTAL 0.4 MG/DL (0.2-1.0); BLOOD UREA NITROGEN 14 MG/DL (7-18); CALCIUM LEVEL 8.9 MG/DL (8.5-10.1); CARBON DIOXIDE LEVEL 29 MEQ/L (21-32); CHLORIDE LEVEL 104 MEQ/L (98-107); CREATININE FOR GFR 1.06 MG/DL (0.70-1.30); GLOMERULAR FILTRATION RATE > 60.0 (>60); GLUCOSE, FASTING 220 MG/DL (70-100); LDH LACTATE DEHYDROGENASE 280 U/L (87-241); POTASSIUM SERUM 4.2 MEQ/L (3.5-5.1); SODIUM LEVEL 139 MEQ/L (136-145); TOTAL PROTEIN 7.2 GM/DL (6.4-8.2)
== END ==
LOC: M WUC 10:44
PROVIDERS: ATTEND Physician Assistant Medical
DX: I50.22 Chronic systolic (congestive) heart failure (principal); Z95.811 Presence of heart assist device; Z95.2 Presence of prosthetic heart valve; Z79.01 Long term (current) use of anticoagulants

== ENCOUNTER → 2020-02-12 | Outpatient (CLI) | payer OTHER, MEDICAID ==
--- NOTE | 2020-02-16 04:49 | ECWPNPC ---
PATIENT NAME: JORDAN JONAS : 1980 GENDER: MALE VISIT DATE: 02/12/2020 DISCHARGE DATE: 02/12/20 1355 VISIT LOCKED DATE TIME: PHYSICIAN: [facility] العلي PHYSICIAN PAGER NO: ACTIVE RESOURCE: LUC العلي REASON FOR APPOINTMENT 1. NEUROPATHY-LOW BACK/HIPS HISTORY OF PRESENT ILLNESS PAIN CENTER INTAKE QUESTIONS: 39-YEAR-OLD MALE IN FOR CHRONIC PAIN FOLLOW-UP. HE FEELS MEDICATIONS ARE WORKING WELL AND DOES ADMIT TO SOME OCCASIONAL CONSTIPATION WHICH HE IS TAKING MIRALAX FOR. HE RATES HIS PAIN CURRENTLY AT A 6 OUT OF 10 AND DESCRIBES IT ACHING, BURNING, SHARP, STABBING, THROBBING, SHOOTING. GENERAL: -. FALL RISK SCREENING: SCREENING :NO FALLS REPORTED IN THE LAST YEAR PAIN SCREENING: PATIENT HAS A COMPLAINT OF ACUTE OR CHRONIC PAIN :YES LOCATION OF PAIN:LOW BACK, LEFT HIP, RIGHT HIP INTENSITY OF PAIN (SCALE OF 1 TO 10):6 WHAT DOES YOUR PAIN FEEL LIKE:ACHING, BURNING, SHARP, STABBING, THROBBING, SHOOTING DURATION:CONTINOUS, CONSTANT PAIN IS INCREASED BY:ACTIVITIES PAIN IS DECREASED BY:SITTING TREATMENT/MEDICATIONS USED TO MANAGE PAIN:OPIOIDS LEVEL OF RELIEF FROM PAIN TREATMENTS IN THE PAST:25% PAIN HAS INTERFERED WITH THE FOLLOWING:BATHING/DRESSING, WALKING ABILITY, HOUSEWORK, SLEEP NURSING NOTE: -. CURRENT MEDICATIONS TAKING COUMADIN 10 MG TABLET DIRECTED ORALLY ONCE A DAY TAKING ENTRESTO 24-26 MG TABLET 1/2 TABLET ORAL TWICE A DAY TAKING FLUVOXAMINE MALEATE 25 MG TABLET 1 TABLET ORALLY ONCE A DAY AT BEDTIME, NOTES: TAKE AT BEDTIME TAKING HYDROXYZINE HCL 50 MG TABLET 1 TABLET NEEDED ORALLY EVERY 8 HRS TAKING MAY HAVE - - PLEASE DISPENSE INR TESTING EQUIPMENT AND MACHINE WEEKLY INR WITH TARGET RANGE 2.5 - 3.5 WITH PANIC VALUES OF <1.5 AND >5 TAKING MAY HAVE - - PLEASE PROVIDE MASK REFIT AND SUPPLIES FOR BIPAP DAILY WHEN SLEEPING TAKING MAY HAVE - - PLEASE DISPENSE INR METER AND SUPPLIES FINGERSTICK WEEKLY OR INSTRUCTED TAKING PROAIR HFA 108 (90 BASE) MCG/ACT AEROSOL SOLUTION 2 PUFFS NEEDED INHALATION EVERY 6 HRS TAKING MAY HAVE - - PLEASE DISPENSE NEBULIZER MACHINE FOR USE WITH LEVALBUTEROL. J45.21 TAKING ONE TOUCH ULTRA BLUE STRIPS DIRECTED TWICE DAILY BEFORE BREAKFAST AND DINNER. DX: Z79.4 TAKING ONE TOUCH ULTRA BLUE STRIPS CHECK GLUCOSE BID; DX E11.9 TAKING CONTOUR TEST - STRIP DIRECTED IN VITRO DAILY. Z79.4 TAKING PEN NEEDLES 3/16" 31G X 5 MM MISCELLANEOUS DIRECTED SUBCUTANEOUSLY DAILY TAKING METFORMIN HCL 1000 MG TABLET 1 TABLET WITH A MEAL ORALLY TWICE DAILY WITH MEALS TAKING TORSEMIDE 10 MG TABLET 1 TABLET ORALLY ONCE A DAY TAKING OPTIFOAM 4"X4" PAD DIRECTED CHANGE ONCE EVERY 3 DAYS TAKING BLOOD GLUCOSE TEST - STRIP DIRECTED IN VITRO QID; DX E11.9 TAKING GLUCOMETER DIRECTED SUBCUTANEOUSLY DAILY BEFORE BREAKFAST. DX: E11.9 TAKING LANCETS - MISCELLANEOUS DIRECTED QID; DX E11.9 TAKING STEGLATRO 15 MG TABLET TAKE ONE TABLET BY MOUTH ONCE DAILY ORALLY DAILY TAKING DIGOXIN 125 MCG TABLET DIRECTED ORALLY TAKING LYRICA 150 MG CAPSULE 1 CAPSULE ORALLY TWICE DAILY TAKING ROPINIROLE HCL 1 MG TABLET 1 TABLET ORALLY BID TAKING TRULICITY 1.5 MG/0.5ML SOLUTION PEN-INJECTOR DIRECTED SUBCUTANEOUS WEEKLY TAKING NORCO 10-325 MG TABLET 1 TABLET ORALLY Q6H PRN MDD3 #75 TAB SHOULD LAST 30 DAYS NOT-TAKING BUMETANIDE 2 MG TABLET DIRECTED ORALLY TWICE A DAY NOT-TAKING AMIODARONE HCL 200 MG TABLET 1 TABLET ORALLY TWICE A DAY MEDICATION LIST REVIEWED AND RECONCILED WITH THE PATIENT PAST MEDICAL HISTORY MITRAL VALVE REPLACEMENT 11/2015 SLEEP APNEA ON BIPAP ? 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 SURGICAL HISTORY MITRAL VALVE REPLACEMENT; DUE TO ENDOCARDITIS? 11/25/2015 FINGER FX REPAIR PACEMAKER/ DEFIBRILLATOR 10/23/17 2 WISDOM TEETH REMOVED 02/2019 [facility] 04/28/2019 FAMILY HISTORY FATHER: ALIVE, HEALTHY MOTHER: ALIVE, RA, 3 VALVES REPLACED, DIAGNOSED WITH UNSPECIFIED HEART DISEASE SIBLINGS: ALIVE 4 BROTHER(S) , 2 SISTER(S) - HEALTHY. SOCIAL HISTORY GENERAL: TOBACCO USE ARE YOU A:NONSMOKER LATEX QUESTIONNAIRE LATEX ALLERGY : HAVE YOU EVER DEVELOPED ANY TYPE OF REACTION AFTER HANDLING LATEX PRODUCTS SUCH RUBBER GLOVES, CONDOMS, DIAPHRAGMS, BALLOONS, SOCKS, OR UNDERWEAR?NO ALCOHOL SCREENING DID YOU HAVE A DRINK CONTAINING ALCOHOL IN THE PAST YEAR?NO POINTS0 INTERPRETATIONNEGATIVE RECREATIONAL DRUG USE DRUG USE?NO CAFFEINE CAFFEINE USE?YES HOW OFTEN AND HOW MUCH? 2/DAY PROTESTANT PROTESTANT NO TAOIST BELIEFS THAT WOULD IMPACT HEALTH CARE. LANGUAGE LANGUAGES SPOKEN:ESTONIAN EDUCATION LEVEL OF EDUCATION:HIGH SCHOOL LEARNING BARRIERS / SPECIAL NEEDS BARRIERS TO LEARNING?NO OCCUPATION: UNEMPLOYED. DIET: CONSISTENT CARBOHYDRATE, DASH DIET. EXERCISE: NONE. MARITAL STATUS: ENGAGED. OTHERS AT HOME: FIANCEE. HOSPITALIZATION/MAJOR DIAGNOSTIC PROCEDURE RELATED TO SURGERY PLEURAL EFFUSION POST SURGERY [place] HEART PROBLEMS 02/2019 HEART ISSUES 03/2019 OPEN HEART SURGERY 04/2019 REVIEW OF SYSTEMS CONSTITUTIONAL: ANY RECENT FEVER NO . CHILLS NO . WEIGHT CHANGE OF UNKNOWN REASONS NO . GASTROENTEROLOGY: NEW UNEXPLAINABLE CHANGES IN BOWEL CONTROL NO . CONSTIPATION NO . GENITOURINARY: ANY NEW CHANGE IN BLADDER CONTROL? NO . NEUROLOGY: NEW ONSET DIZZINESS OR NEUROLOGICAL CHANGES NOT MENTIONED NO . NEW NUMBNESS OR PAIN PATTERNS NOT MENTIONED AND PERTINENT TO TODAY'S VISIT NO . CARDIOLOGY: NEW CHEST PRESSURE NO . NEW CHEST PAIN NO . RESPIRATORY: UNEXPLAINABLE COUGH NO . NEW SHORTNESS OF BREATH NO . VITAL SIGNS WT 310.8 LBS, HT 66", BMI 50.16 INDEX, BP UNABLE, HR 52 /MIN, RR 18 /MIN, TEMP 96.7 F, OXYGEN SAT % 100%, NA INITIALS AW 1324. EXAMINATION GENERAL EXAMINATION: GENERALNO ACUTE DISTRESS, WELL NOURISHED AND HYDRATED. PSYCHAPPROPRIATE MOOD AND AFFECT . LUNGS:CLEAR TO AUSCULTATION BILATERALLY, NO WHEEZES, RHONCHI, RALES. HEART:HEART RATE REGULAR . ASSESSMENTS DIABETIC PERIPHERAL NEUROPATHY - E11.42 (PRIMARY) TREATMENT DIABETIC PERIPHERAL NEUROPATHY NOTES: 39-YEAR-OLD MALE IN FOR CHRONIC PAIN FOLLOW-UP. GIVEN PRESENTING SYMPTOMS RECOMMEND CONTINUATION OF CURRENT MEDICATION REGIMEN WITH FOLLOW-UP IN 3 MONTHS. PATIENT HAS EXPRESSED UNDERSTANDING OF AND WAS IN AGREEMENT WITH TREATMENT PLAN. GIVEN TIME TO ASK QUESTIONS AND EXPRESS CONCERNS. , ISTOP REGISTRY REVIEWED AND DEMONSTRATES COMPLLIANCE. (REF # [id number] ) BRINGS IN MEDICATIONS WHICH IS APPROPRIATE FOR WHAT WAS DISPENSED. RECENT URINE TOXICOLOGY REVIEWED. NO UNAUTHORIZED MEDICATIONS. NO ILLICIT SUBSTANCES AND PRESCRIBED MEDICATIONS WERE PRESENT. PROCEDURE CODES FA211 ESTABILISHED PATIENT [facility] CHARGE DISPOSITION & COMMUNICATION FOLLOW UP 3 MONTHS (REASON: NEUROPATHY) ELECTRONICALLY SIGNED BY FAUSTO QUICK ON 02/15/2020 AT 10:01 AM EST DISCLAIMER : THIS IS A VISIT SUMMARY EXTRACTED FROM THE [employer] CHART. IT IS NOT A COPY OF THE [employer] PROGRESS NOTE. ELKE
== END ==
LOC: M PAIN 13:30
PROVIDERS: ATTEND Family Medicine
DX: E11.42 Type 2 diabetes mellitus with diabetic polyneuropathy (principal); G89.29 Other chronic pain; G47.33 Obstructive sleep apnea (adult) (pediatric); G47.00 Insomnia, unspecified; Z95.0 Presence of cardiac pacemaker; E66.01 Morbid (severe) obesity due to excess calories; Z68.43 Body mass index [BMI] 50.0-59.9, adult; Z79.84 Long term (current) use of oral hypoglycemic drugs; Z79.891 Long term (current) use of opiate analgesic; Z79.899 Other long term (current) drug therapy

== ENCOUNTER → 2020-04-29 | Outpatient (CLI) | payer OTHER, MEDICAID ==
[2020-04-29 15:29] LABS: HEMATOCRIT 44.7 % (42.0-52.0); HEMOGLOBIN 15.2 g/dl (13.5-17.5); MEAN CORPUSCULAR HEMOGLOBIN 30.5 pg (27.0-33.0); MEAN CORPUSCULAR VOLUME 89.6 fl (80.0-96.0); PLATELET COUNT, AUTOMATED 263 10^3/uL (150-450); RED BLOOD COUNT 4.99 10^6/uL (4.30-6.10); WHITE BLOOD COUNT 7.3 10^3/uL (4.0-10.0)
[2020-04-29 15:46] LABS: INR 3.46; PROTHROMBIN TIME 35.6 SECONDS (12.5-14.3)
[2020-04-29 16:02] LABS: BLOOD UREA NITROGEN 19 MG/DL (7-18); CALCIUM LEVEL 9.2 MG/DL (8.5-10.1); CARBON DIOXIDE LEVEL 27 MEQ/L (21-32); CHLORIDE LEVEL 101 MEQ/L (98-107); CREATININE FOR GFR 1.18 MG/DL (0.70-1.30); GLOMERULAR FILTRATION RATE > 60.0 (>60); GLUCOSE, FASTING 281 MG/DL (70-100); LDH LACTATE DEHYDROGENASE 327 U/L (87-241); POTASSIUM SERUM 3.5 MEQ/L (3.5-5.1); SODIUM LEVEL 137 MEQ/L (136-145)
== END ==
LOC: M PLALAB 13:30
PROVIDERS: ATTEND Physician Assistant Medical
DX: Z79.01 Long term (current) use of anticoagulants (principal); Z95.811 Presence of heart assist device; Z95.2 Presence of prosthetic heart valve

== ENCOUNTER → 2020-05-21 | Outpatient (CLI) | payer OTHER | LOC: M LABSMTC 09:05 | PROVIDERS: ATTEND Pediatrics | DX: Z20.822 Contact with and (suspected) exposure to COVID-19 (principal) | CPT/HCPCS: C9803; U0003 ==

== ENCOUNTER → 2020-05-24 | Outpatient (REF) | payer OTHER, MEDICAID ==
[2020-05-24 17:30] LABS: BASO # 0.1 10^3/uL (0.0-0.2); EOS # 0.1 10^3/uL (0.0-0.5); HEMATOCRIT 48.1 % (42.0-52.0); HEMOGLOBIN 15.6 g/dl (13.5-17.5); MEAN CORPUSCULAR HEMOGLOBIN 30.5 pg (27.0-33.0); MEAN CORPUSCULAR HGB CONC 32.4 g/dl (32.0-36.5); MEAN CORPUSCULAR VOLUME 94.1 fl (80.0-96.0); MONO # 0.6 10^3/uL (0.0-0.8); NEUTROPHILS % 76.5 % (36.0-66.0); PLATELET COUNT, AUTOMATED 259 10^3/uL (150-450); RED BLOOD COUNT 5.11 10^6/uL (4.30-6.10); WHITE BLOOD COUNT 7.8 10^3/uL (4.0-10.0)
[2020-05-24 17:51] LABS: ALT/SGPT 41 U/L (12-78); AMYLASE 37 U/L (25-115); BILIRUBIN,TOTAL 0.6 MG/DL (0.2-1.0); BLOOD UREA NITROGEN 20 MG/DL (7-18); CALCIUM LEVEL 9.1 MG/DL (8.5-10.1); CARBON DIOXIDE LEVEL 26 MEQ/L (21-32); CHLORIDE LEVEL 101 MEQ/L (98-107); CREATININE FOR GFR 1.29 MG/DL (0.70-1.30); FERRITIN 32 NG/ML (26-388); GLOMERULAR FILTRATION RATE > 60.0 (>60); GLUCOSE, FASTING 230 MG/DL (70-100); IRON (FE) 44 UG/DL (65-175); LIPASE 158 U/L (73-393); POTASSIUM SERUM 4.2 MEQ/L (3.5-5.1); SODIUM LEVEL 138 MEQ/L (136-145); TOTAL PROTEIN 7.3 GM/DL (6.4-8.2)
[2020-05-24 17:59] LABS: VITAMIN B12 LEVEL 440 PG/ML (247-911)
== END ==
LOC: M SFHCPLAZ 14:43
PROVIDERS: ATTEND Physician Assistant Medical
DX: G25.81 Restless legs syndrome (principal); R11.2 Nausea with vomiting, unspecified

== ENCOUNTER → 2020-05-24 | Outpatient (CLI) | payer OTHER, MEDICAID ==
[2020-05-24 17:29] LABS: HEMOGLOBIN 15.3 g/dl (13.5-17.5); MEAN CORPUSCULAR HEMOGLOBIN 30.3 pg (27.0-33.0); MEAN CORPUSCULAR HGB CONC 32.6 g/dl (32.0-36.5); MEAN CORPUSCULAR VOLUME 93.1 fl (80.0-96.0); PLATELET COUNT, AUTOMATED 259 10^3/uL (150-450); RED BLOOD COUNT 5.05 10^6/uL (4.30-6.10); WHITE BLOOD COUNT 7.6 10^3/uL (4.0-10.0)
[2020-05-24 17:41] LABS: INR 2.31; PROTHROMBIN TIME 25.9 SECONDS (12.5-14.3)
[2020-05-24 17:47] LABS: BLOOD UREA NITROGEN 21 MG/DL (7-18); CALCIUM LEVEL 9.2 MG/DL (8.5-10.1); CARBON DIOXIDE LEVEL 28 MEQ/L (21-32); CHLORIDE LEVEL 102 MEQ/L (98-107); CREATININE FOR GFR 1.26 MG/DL (0.70-1.30); GLOMERULAR FILTRATION RATE > 60.0 (>60); GLUCOSE, FASTING 220 MG/DL (70-100); LDH LACTATE DEHYDROGENASE 362 U/L (87-241); POTASSIUM SERUM 4.2 MEQ/L (3.5-5.1); SODIUM LEVEL 138 MEQ/L (136-145)
== END ==
LOC: M PLALAB 14:44
PROVIDERS: ATTEND Physician Assistant Medical
DX: G25.81 Restless legs syndrome (principal); Z95.811 Presence of heart assist device; Z95.2 Presence of prosthetic heart valve; Z79.01 Long term (current) use of anticoagulants

== ENCOUNTER → 2020-06-21 | Outpatient (CLI) | payer OTHER, MEDICAID ==
--- NOTE | 2020-06-23 04:19 | ECWPNPC ---
PATIENT NAME: JORDAN JONAS : 1980 GENDER: MALE VISIT DATE: 06/21/2020 DISCHARGE DATE: 06/21/20 1509 VISIT LOCKED DATE TIME: PHYSICIAN: LUC العلي PHYSICIAN PAGER NO: ACTIVE RESOURCE: LUC العلي REASON FOR APPOINTMENT 1. 3 MO F/O NEUROPATHY HISTORY OF PRESENT ILLNESS DEPRESSION SCREENING: PHQ-2 (2015 EDITION) LITTLE INTEREST OR PLEASURE IN DOING THINGS?NOT AT ALL FEELING DOWN, DEPRESSED, OR HOPELESS?NOT AT ALL TOTAL SCORE0 40-YEAR-OLD MALE IN FOR CHRONIC PAIN FOLLOW-UP. HE RATES HIS PAIN CURRENTLY AT A 6 OUT OF 10 AND DESCRIBES IT BURNING, THROBBING, AND SHOOTING. HE FEELS MEDICATIONS ARE HELPFUL AND DENIES MED SIDE EFFECTS AT THIS TIME BUT HE DOES ADMIT TO INCREASED PINS AND NEEDLES FEELING IN HIS FEET BILATERALLY. GENERAL: -. FALL RISK SCREENING: SCREENING PATIENT HAD ONE FALL WITH INJURY TO WRIST. PATIENT DID NOT SEEK MEDICAL TREATMENT.. PAIN SCREENING: PATIENT HAS A COMPLAINT OF ACUTE OR CHRONIC PAIN :YES LOCATION OF PAIN:LOW BACK, LEFT HIP, RIGHT HIP, FEET INTENSITY OF PAIN (SCALE OF 1 TO 10):6 WHAT DOES YOUR PAIN FEEL LIKE:BURNING, THROBBING, SHOOTING FEET ARE TINGLING AND SHOOTING DURATION:CONTINOUS, STEADY, AWAKENS FROM SLEEP PAIN IS INCREASED BY:ACTIVITIES PAIN IS DECREASED BY:OTHERS STANDING RELIEVES THE PAIN NURSING NOTE: -. PAIN CENTER INTAKE QUESTIONS: DO YOU HAVE A HISTORY OF MRSA? :NO DO YOU TAKE A BLOOD THINNERS? :YES COUMADIN DO YOU HAVE ANY BLEEDING DISORDERS? :NO ANY NEW NUMBNESS OR WEAKNESS IN YOUR LEGS OR ARMS? :YES BILATERAL FEET ANY PACEMAKER,DEFIBRILLATOR, OR DORSAL COLUMN STIMULATOR? :YES PATIENT HAS A PACEMAKER/DEFRIBILLATOR DO YOU HAVE ANY RASHES OR OPEN SORES? :NO ARE YOU ALLERGIC TO IV DYE? :NO ARE YOU DIABETIC? :YES TYPE II DIABETIC ANY NEW PROBLEMS WITH YOUR MEDICATIONS? :NO HAVE YOU RECEIVED A VACCINE IN THE PAST 30 DAYS? :NO DO YOU PLAN TO RECEIVE A VACCINE IN THE NEXT 21 DAYS? :YES IF SO WHAT VACCINE AND WHEN? WOULD LIKE THE COVID VACCINATION IF IT BECOMES AVAILABLE. DO YOU NEED ANY PRESCRIPTION? :YES HYDROCODONE DO YOU TAKE ANY IMMUNOSUPPRESSIVE MEDICATIONS? :NO DO YOU HAVE ANY KIDNEY OR LIVER DISEASE? :NO IS THERE A CHANCE YOU COULD BE ? :NO ARE YOU BREAST FEEDING? :NO CURRENT MEDICATIONS TAKING HYDROCODONE-ACETAMINOPHEN 10-325 MG TABLET 1 TABLET NEEDED ORALLY Q6H PRN SEVERE PAIN MDD2 #75 TABS SHOULD LAST 30 DAYS TAKING PEN NEEDLES 3/16" 31G X 5 MM MISCELLANEOUS DIRECTED SUBCUTANEOUSLY DAILY TAKING INSULIN SYRINGE-NEEDLE U-100 31G X 5/16" 0.5 ML MISCELLANEOUS DIRECTED DX E11.65; QID TAKING COUMADIN 10 MG TABLET DIRECTED ORALLY ONCE A DAY TAKING ENTRESTO 24-26 MG TABLET 1/2 TABLET ORAL TWICE A DAY TAKING FLUVOXAMINE MALEATE 25 MG TABLET 1 TABLET ORALLY ONCE A DAY AT BEDTIME, NOTES: TAKE AT BEDTIME TAKING HYDROXYZINE HCL 50 MG TABLET 1 TABLET NEEDED ORALLY EVERY 8 HRS TAKING MAY HAVE - - PLEASE DISPENSE INR TESTING EQUIPMENT AND MACHINE WEEKLY INR WITH TARGET RANGE 2.5 - 3.5 WITH PANIC VALUES OF <1.5 AND >5 TAKING MAY HAVE - - PLEASE PROVIDE MASK REFIT AND SUPPLIES FOR BIPAP DAILY WHEN SLEEPING TAKING MAY HAVE - - PLEASE DISPENSE INR METER AND SUPPLIES FINGERSTICK WEEKLY OR INSTRUCTED TAKING PROAIR HFA 108 (90 BASE) MCG/ACT AEROSOL SOLUTION 2 PUFFS NEEDED INHALATION EVERY 6 HRS TAKING ONE TOUCH ULTRA BLUE STRIPS DIRECTED TWICE DAILY BEFORE BREAKFAST AND DINNER. DX: Z79.4 TAKING ONE TOUCH ULTRA BLUE STRIPS CHECK GLUCOSE BID; DX E11.9 TAKING TORSEMIDE 10 MG TABLET 1 TABLET ORALLY ONCE A DAY TAKING STEGLATRO 15 MG TABLET TAKE ONE TABLET BY MOUTH ONCE DAILY ORALLY DAILY TAKING ROPINIROLE HCL 1 MG TABLET 1 TABLET ORALLY BID TAKING MECLIZINE HCL 12.5 MG TABLET 1 TAB ORALLY EVERY 6 HOURS NEEDED TAKING METFORMIN HCL 1000 MG TABLET 1 TABLET WITH A MEAL ORALLY TWICE DAILY WITH MEALS TAKING BLOOD GLUCOSE TEST - STRIP DIRECTED IN VITRO QID; DX E11.9 TAKING GLUCOMETER DIRECTED SUBCUTANEOUSLY DAILY BEFORE BREAKFAST. DX: E11.9 TAKING LANCETS - MISCELLANEOUS DIRECTED QID; DX E11.9 TAKING TRULICITY 3 MG/0.5ML SOLUTION PEN-INJECTOR DIRECTED SUBCUTANEOUS WEEKLY TAKING ADMELOG 100 UNIT/ML SOLUTION DIRECTED SUBCUTANEOUS THREE TIMES DAILY NEEDED NOT-TAKING MAY HAVE - - PLEASE DISPENSE NEBULIZER MACHINE FOR USE WITH LEVALBUTEROL. J45.21 NOT-TAKING CONTOUR TEST - STRIP DIRECTED IN VITRO DAILY. Z79.4 NOT-TAKING OPTIFOAM 4"X4" PAD DIRECTED CHANGE ONCE EVERY 3 DAYS NOT-TAKING DIGOXIN 125 MCG TABLET DIRECTED ORALLY NOT-TAKING LYRICA 150 MG CAPSULE 1 CAPSULE ORALLY TWICE DAILY NOT-TAKING BUMETANIDE 2 MG TABLET DIRECTED ORALLY TWICE A DAY NOT-TAKING AMIODARONE HCL 200 MG TABLET 1 TABLET ORALLY TWICE A DAY MEDICATION LIST REVIEWED AND RECONCILED WITH THE PATIENT PAST MEDICAL HISTORY MITRAL VALVE REPLACEMENT 11/2015 SLEEP APNEA ON BIPAP ? 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 SOCIAL HISTORY GENERAL: TOBACCO USE ARE YOU A:NONSMOKER LATEX QUESTIONNAIRE LATEX ALLERGY : HAVE YOU EVER DEVELOPED ANY TYPE OF REACTION AFTER HANDLING LATEX PRODUCTS SUCH RUBBER GLOVES, CONDOMS, DIAPHRAGMS, BALLOONS, SOCKS, OR UNDERWEAR?NO LATEX ALLERGY : HAVE YOU EVER DEVELOPED ANY TYPE OF REACTION DURING OR AFTER DENTAL APPOINTMENT, VAGINAL/RECTAL EXAMINATION, SURGICAL PROCEDURE, OR ANY OTHER EXPOSURE?NO LATEX RISK : HAVE YOU EVER HAD ANY DIFFICULTY BREATHING OR HIVES AFTER EATING OR HANDLING ANY FRUITS, OR VEGETABLES; SUCH KIWI, BANANAS, STONE FRUITS, OR CHESTNUTSNO LATEX RISK : DO YOU HAVE A PREVIOUS PERSONAL HISTORY OF MORE THAN NINE SURGERIES, SPINA BIFIDA, OR REPEATED CATHERIZATIONS? NO LATEX RISK : ARE YOU FREQUENTLY EXPOSED TO LATEX PRODUCTS IN YOUR OCCUPATION?NO DATE ASKED : 06/21/2020 ALCOHOL USE: NO. ALCOHOL SCREENING DID YOU HAVE A DRINK CONTAINING ALCOHOL IN THE PAST YEAR?NO POINTS0 INTERPRETATIONNEGATIVE RECREATIONAL DRUG USE DRUG USE?NO CAFFEINE CAFFEINE USE?YES HOW OFTEN AND HOW MUCH? 2/DAY MUSLIM MUSLIM NO PENTECOSTAL BELIEFS THAT WOULD IMPACT HEALTH CARE. 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 DIET: CONSISTENT CARBOHYDRATE, DASH DIET. EXERCISE: NONE. MARITAL STATUS: ENGAGED. OTHERS AT HOME: FIANCEE. REVIEW OF SYSTEMS CONSTITUTIONAL: ANY RECENT FEVER NO . CHILLS NO . WEIGHT CHANGE OF UNKNOWN REASONS NO . GASTROENTEROLOGY: NEW UNEXPLAINABLE CHANGES IN BOWEL CONTROL NO . CONSTIPATION NO . GENITOURINARY: ANY NEW CHANGE IN BLADDER CONTROL? NO . NEUROLOGY: NEW ONSET DIZZINESS OR NEUROLOGICAL CHANGES NOT MENTIONED NO . NEW NUMBNESS OR PAIN PATTERNS NOT MENTIONED AND PERTINENT TO TODAY'S VISIT NO . CARDIOLOGY: NEW CHEST PRESSURE NO . PATIENT DENIES NO . RESPIRATORY: UNEXPLAINABLE COUGH NO . NEW SHORTNESS OF BREATH NO . VITAL SIGNS WT 295.6 LBS, HT 66", BMI 47.71 INDEX, BP 113/74 MM HG, HR 62 /MIN, RR 20 /MIN, TEMP 97.8 F, OXYGEN SAT % 97%, SAFE IN ENV? (Y/N) YES, REVIEWED BY: MARY CARMEN ROSALES MA. EXAMINATION GENERAL EXAMINATION: GENERALNO ACUTE DISTRESS, WELL NOURISHED AND HYDRATED. PSYCHAPPROPRIATE MOOD AND AFFECT . LUNGS:CLEAR TO AUSCULTATION BILATERALLY, NO WHEEZES, RHONCHI, RALES. HEART: HEART PROSTHESIS WITH METALLIC HEART SOUNDS. ASSESSMENTS DIABETIC POLYNEUROPATHY ASSOCIATED WITH TYPE 2 DIABETES MELLITUS - E11.42 (PRIMARY) CHRONIC PRESCRIPTION OPIATE USE - Z79.891 TREATMENT DIABETIC POLYNEUROPATHY ASSOCIATED WITH TYPE 2 DIABETES MELLITUS START CYMBALTA CAPSULE DELAYED RELEASE PARTICLES, 30 MG, 1 CAPSULE, ORALLY, ONCE A DAY, 30 DAY(S), 30 NOTES: 40-YEAR-OLD MALE IN FOR CHRONIC PAIN FOLLOW-UP. GIVEN PRESENTING SYMPTOMS AND INCREASED PAIN RECOMMENDED STARTING CYMBALTA 30 MG DAILY WITH FOLLOW-UP IN ONE MONTH TO DETERMINE EFFICACY TREATMENT. HOWEVER, PATIENT STATES AFTER HEARING THE GENERIC NAME DURING EDUCATION THAT HE IS ALREADY TAKING SAID MEDICAITON. SUCH, RECOMMEND REFERRAL TO NEURO FOR FURTHER EVALUATION. PATIENT HAS EXPRESSED UNDERSTANDING OF AND WAS IN AGREEMENT WITH TREATMENT PLAN. GIVEN TIME TO ASK QUESTIONS AND EXPRESS CONCERNS. , ISTOP REGISTRY REVIEWED AND DEMONSTRATES COMPLLIANCE. (REF # [id number] ) BRINGS IN MEDICATIONS WHICH IS APPROPRIATE FOR WHAT WAS DISPENSED. RECENT URINE TOXICOLOGY REVIEWED. NO UNAUTHORIZED MEDICATIONS. NO ILLICIT SUBSTANCES AND PRESCRIBED MEDICATIONS WERE PRESENT. REFERRAL TO:[facility] ([facility])NEUROLOGICAL SURGERY REASON:INCREASED PARATHESIAS CHRONIC PRESCRIPTION OPIATE USE LAB: URINE TEST GROUP FRANKO ROSALES 06/21/2020 3:01:57 PM > LAST DOSE: HYDROXYZINE 06/20/2020; HYDROCODONE 06/21/2020 PROCEDURE CODES FA211 ESTABILISHED PATIENT [facility] FACILITY CHARGE DISPOSITION & COMMUNICATION FOLLOW UP 3 MONTHS (REASON: NEUROPATHY) ELECTRONICALLY SIGNED BY FAUSTO QUICK ON 06/22/2020 AT 12:48 PM EST DISCLAIMER : THIS IS A VISIT SUMMARY EXTRACTED FROM THE Written[employer]ICAL[employer] CHART. IT IS NOT A COPY OF THE Written[employer]nis PROGRESS NOTE. ELKE
== END ==
LOC: M PAIN 14:15
PROVIDERS: ATTEND Family Medicine
DX: E11.42 Type 2 diabetes mellitus with diabetic polyneuropathy (principal); Z95.1 Presence of aortocoronary bypass graft; G47.30 Sleep apnea, unspecified; E11.9 Type 2 diabetes mellitus without complications; E78.5 Hyperlipidemia, unspecified; I42.0 Dilated cardiomyopathy; M48.061 Spinal stenosis, lumbar region without neurogenic claudication; G47.00 Insomnia, unspecified; I48.20 Chronic atrial fibrillation, unspecified; Z87.891 Personal history of nicotine dependence; Z79.891 Long term (current) use of opiate analgesic; Z95.0 Presence of cardiac pacemaker; Z79.84 Long term (current) use of oral hypoglycemic drugs; Z79.01 Long term (current) use of anticoagulants; Z79.899 Other long term (current) drug therapy

== ENCOUNTER → 2020-06-22 | Outpatient (CLI) | payer OTHER, MEDICAID ==
[2020-06-22 18:16] LABS: HEMATOCRIT 51.3 % (42.0-52.0); HEMOGLOBIN 17.2 g/dl (13.5-17.5); MEAN CORPUSCULAR HEMOGLOBIN 31.3 pg (27.0-33.0); MEAN CORPUSCULAR HGB CONC 33.5 g/dl (32.0-36.5); MEAN CORPUSCULAR VOLUME 93.3 fl (80.0-96.0); PLATELET COUNT, AUTOMATED 236 10^3/uL (150-450); WHITE BLOOD COUNT 6.7 10^3/uL (4.0-10.0)
[2020-06-22 18:36] LABS: INR 2.26; PROTHROMBIN TIME 25.5 SECONDS (12.5-14.3)
[2020-06-22 18:37] LABS: BLOOD UREA NITROGEN 18 MG/DL (7-18); CALCIUM LEVEL 9.3 MG/DL (8.5-10.1); CARBON DIOXIDE LEVEL 27 MEQ/L (21-32); CHLORIDE LEVEL 104 MEQ/L (98-107); CREATININE FOR GFR 1.18 MG/DL (0.70-1.30); GLOMERULAR FILTRATION RATE > 60.0 (>60); GLUCOSE, FASTING 126 MG/DL (70-100); LDH LACTATE DEHYDROGENASE 358 U/L (87-241); POTASSIUM SERUM 4.1 MEQ/L (3.5-5.1); SODIUM LEVEL 140 MEQ/L (136-145)
== END ==
LOC: M PLALAB 15:32
PROVIDERS: ATTEND Physician Assistant Medical
DX: Z95.811 Presence of heart assist device (principal); Z95.2 Presence of prosthetic heart valve; Z79.01 Long term (current) use of anticoagulants

== ENCOUNTER → 2020-08-09 | Outpatient (CLI) | payer OTHER, MEDICAID ==
[2020-08-09 13:06] LABS: HEMATOCRIT 52.2 % (42.0-52.0); HEMOGLOBIN 17.2 g/dl (13.5-17.5); MEAN CORPUSCULAR HEMOGLOBIN 30.9 pg (27.0-33.0); MEAN CORPUSCULAR VOLUME 93.9 fl (80.0-96.0); PLATELET COUNT, AUTOMATED 227 10^3/uL (150-450); RED BLOOD COUNT 5.56 10^6/uL (4.30-6.10); WHITE BLOOD COUNT 8.3 10^3/uL (4.0-10.0)
[2020-08-09 13:17] LABS: INR 3.68; PROTHROMBIN TIME 37.4 SECONDS (12.5-14.3)
[2020-08-09 13:26] LABS: HEMOGLOBIN A1c 6.5 %
[2020-08-09 13:36] LABS: BLOOD UREA NITROGEN 27 MG/DL (7-18); CALCIUM LEVEL 9.9 MG/DL (8.5-10.1); CARBON DIOXIDE LEVEL 26 MEQ/L (21-32); CHLORIDE LEVEL 104 MEQ/L (98-107); CREATININE FOR GFR 1.21 MG/DL (0.70-1.30); GLOMERULAR FILTRATION RATE > 60.0 (>60); GLUCOSE, FASTING 164 MG/DL (70-100); LDH LACTATE DEHYDROGENASE 370 U/L (87-241); POTASSIUM SERUM 3.6 MEQ/L (3.5-5.1); SODIUM LEVEL 137 MEQ/L (136-145)
[2020-08-09 13:45] LABS: CHOLESTEROL RISK RATIO 4.868 (<5)
== END ==
LOC: M PLALAB 10:03
PROVIDERS: ATTEND Physician Assistant Medical
DX: Z95.811 Presence of heart assist device (principal); Z95.2 Presence of prosthetic heart valve; Z79.01 Long term (current) use of anticoagulants

== ENCOUNTER → 2020-09-21 | Outpatient (CLI) | payer OTHER ==
--- NOTE | 2020-09-23 04:54 | ECWPNPC ---
PATIENT NAME: JORDAN JONAS : 1980 GENDER: MALE VISIT DATE: 09/21/2020 DISCHARGE DATE: 09/21/20 1428 VISIT LOCKED DATE TIME: PHYSICIAN: LUC العلي PHYSICIAN PAGER NO: ACTIVE RESOURCE: LUC العلي REASON FOR APPOINTMENT 1. NEW MED HISTORY OF PRESENT ILLNESS GENERAL: HPI 40-YEAR-OLD MALE IN FOR CHRONIC PAIN FOLLOW-UP. HE RATES HIS PAIN CURRENTLY AT A 7 OUT OF 10 AND DESCRIBES IT ACHING, BURNING, AND CONTINUOUS. HE FEELS MEDICATIONS ARE HELPFUL AND DENIES MED SIDE EFFECTS AT THIS TIME.. -. FALL RISK SCREENING: SCREENING : NO FALLS REPORTED IN THE LAST YEAR. PAIN SCREENING: PATIENT HAS A COMPLAINT OF ACUTE OR CHRONIC PAIN :YES LOCATION OF PAIN:LEFT HIP, RIGHT HIP, BACK INTENSITY OF PAIN (SCALE OF 1 TO 10):7 WHAT DOES YOUR PAIN FEEL LIKE:ACHING, BURNING, CONTINOUS, SHARP, STABBING, TENDER, THROBBING, SORE, SHOOTING SHOOTING IS INTERMITTENT DURATION:CONTINOUS, CONSTANT, AWAKENS FROM SLEEP PAIN IS INCREASED BY:ACTIVITIES, PROLONGED STANDING PAIN IS DECREASED BY:USE OF PAIN MEDICATIONS, SITTING NURSING NOTE: -. PAIN CENTER INTAKE QUESTIONS: DO YOU HAVE A HISTORY OF MRSA? :NO DO YOU TAKE A BLOOD THINNERS? :YES COUMADIN DO YOU HAVE ANY BLEEDING DISORDERS? :NO ANY NEW NUMBNESS OR WEAKNESS IN YOUR LEGS OR ARMS? :YES BILATERAL FEET ANY PACEMAKER,DEFIBRILLATOR, OR DORSAL COLUMN STIMULATOR? :YES PATIENT HAS A PACEMAKER/DEFRIBILLATOR DO YOU HAVE ANY RASHES OR OPEN SORES? :NO ARE YOU ALLERGIC TO IV DYE? :NO ARE YOU DIABETIC? :YES TYPE II DIABETIC ANY NEW PROBLEMS WITH YOUR MEDICATIONS? :YES NAUSEA HAVE YOU RECEIVED A VACCINE IN THE PAST 30 DAYS? :NO DO YOU PLAN TO RECEIVE A VACCINE IN THE NEXT 21 DAYS? :NO DO YOU NEED ANY PRESCRIPTION? :YES HYDROCODONE DO YOU TAKE ANY IMMUNOSUPPRESSIVE MEDICATIONS? :NO DO YOU HAVE ANY KIDNEY OR LIVER DISEASE? :NO IS THERE A CHANCE YOU COULD BE ? :NO ARE YOU BREAST FEEDING? :NO CURRENT MEDICATIONS TAKING INSULIN SYRINGE-NEEDLE U-100 31G X 5/16" 0.5 ML MISCELLANEOUS DIRECTED DX E11.65; QID TAKING MAY HAVE - - PLEASE DISPENSE INR TESTING EQUIPMENT AND MACHINE WEEKLY INR WITH TARGET RANGE 2.5 - 3.5 WITH PANIC VALUES OF <1.5 AND >5 TAKING MAY HAVE - - PLEASE PROVIDE MASK REFIT AND SUPPLIES FOR BIPAP DAILY WHEN SLEEPING TAKING MAY HAVE - - PLEASE DISPENSE INR METER AND SUPPLIES FINGERSTICK WEEKLY OR INSTRUCTED TAKING PROAIR HFA 108 (90 BASE) MCG/ACT AEROSOL SOLUTION 2 PUFFS NEEDED INHALATION EVERY 6 HRS TAKING ONE TOUCH ULTRA BLUE STRIPS DIRECTED TWICE DAILY BEFORE BREAKFAST AND DINNER. DX: Z79.4 TAKING ONE TOUCH ULTRA BLUE STRIPS CHECK GLUCOSE BID; DX E11.9 TAKING TORSEMIDE 10 MG TABLET 1 TABLET ORALLY ONCE A DAY TAKING GLUCOMETER DIRECTED SUBCUTANEOUSLY DAILY BEFORE BREAKFAST. DX: E11.9 TAKING LANCETS - MISCELLANEOUS DIRECTED QID; DX E11.9 TAKING BLOOD GLUCOSE TEST - STRIP DIRECTED IN VITRO QID; DX E11.9 TAKING COUMADIN 10 MG TABLET DIRECTED ORALLY ONCE A DAY, NOTES: DEPENDING ON INR TAKING FLUVOXAMINE MALEATE 25 MG TABLET 1 TABLET ORALLY ONCE A DAY AT BEDTIME, NOTES: TAKE AT BEDTIME TAKING METFORMIN HCL 1000 MG TABLET 1 TABLET WITH A MEAL ORALLY TWICE DAILY WITH MEALS TAKING TRULICITY 3 MG/0.5ML SOLUTION PEN-INJECTOR DIRECTED SUBCUTANEOUS WEEKLY TAKING ROPINIROLE HCL 2 MG TABLET 1 TABLET ORALLY BID TAKING HYDROCODONE-ACETAMINOPHEN 10-325 MG TABLET 1 TABLET NEEDED ORALLY Q6H PRN SEVERE PAIN MDD2 #75 TABS SHOULD LAST 30 DAYS TAKING FARXIGA 5 MG TABLET 1 TABLET ORALLY ONCE A DAY NOT-TAKING ENTRESTO 24-26 MG TABLET 1/2 TABLET ORAL TWICE A DAY NOT-TAKING STEGLATRO 15 MG TABLET TAKE ONE TABLET BY MOUTH ONCE DAILY ORALLY DAILY NOT-TAKING MECLIZINE HCL 12.5 MG TABLET 1 TAB ORALLY EVERY 6 HOURS NEEDED NOT-TAKING HYDROXYZINE HCL 50 MG TABLET 1 TABLET NEEDED ORALLY EVERY 8 HRS NOT-TAKING CYMBALTA 30 MG CAPSULE DELAYED RELEASE PARTICLES 1 CAPSULE ORALLY ONCE A DAY NOT-TAKING ADMELOG 100 UNIT/ML SOLUTION DIRECTED PER SLIDING SCALE MDD 40 UNITS SUBCUTANEOUS THREE TIMES DAILY NEEDED MEDICATION LIST REVIEWED AND RECONCILED WITH THE PATIENT PAST MEDICAL HISTORY MITRAL VALVE REPLACEMENT 11/2015 SLEEP APNEA ON BIPAP ? 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 SOCIAL HISTORY GENERAL: TOBACCO USE ARE YOU A:CURRENT SMOKER SMOKES CIGARS ARE YOU INTERESTED IN QUITTING?THINKING ABOUT QUITTING COUNSELED THE PATIENT ON SMOKING CESSATION, EDUCATION [id number]/09/2021 HOW MANY CIGARETTES A DAY DO YOU SMOKE?5 OR LESS HOW SOON AFTER YOU WAKE UP DO YOU SMOKE YOUR FIRST CIGARETTE?WITHIN 5 MIN HOW OFTEN DO YOU SMOKE CIGARETTES?EVERY DAY PATIENT COUNSELED ON THE DANGERS OF TOBACCO USE AND URGED TO QUIT:07/27/2020 LATEX QUESTIONNAIRE LATEX ALLERGY : HAVE YOU EVER DEVELOPED ANY TYPE OF REACTION AFTER HANDLING LATEX PRODUCTS SUCH RUBBER GLOVES, CONDOMS, DIAPHRAGMS, BALLOONS, SOCKS, OR UNDERWEAR?NO LATEX ALLERGY : HAVE YOU EVER DEVELOPED ANY TYPE OF REACTION DURING OR AFTER DENTAL APPOINTMENT, VAGINAL/RECTAL EXAMINATION, SURGICAL PROCEDURE, OR ANY OTHER EXPOSURE?NO LATEX RISK : HAVE YOU EVER HAD ANY DIFFICULTY BREATHING OR HIVES AFTER EATING OR HANDLING ANY FRUITS, OR VEGETABLES; SUCH KIWI, BANANAS, STONE FRUITS, OR CHESTNUTSNO LATEX RISK : DO YOU HAVE A PREVIOUS PERSONAL HISTORY OF MORE THAN NINE SURGERIES, SPINA BIFIDA, OR REPEATED CATHERIZATIONS? NO LATEX RISK : ARE YOU FREQUENTLY EXPOSED TO LATEX PRODUCTS IN YOUR OCCUPATION?NO DATE ASKED : 09/21/2020 ALCOHOL USE: OCCASIONAL. ALCOHOL SCREENING DID YOU HAVE A DRINK CONTAINING ALCOHOL IN THE PAST YEAR?NO POINTS0 INTERPRETATIONNEGATIVE RECREATIONAL DRUG USE DRUG USE?YES OCCASIONAL, MARIJUANA CAFFEINE CAFFEINE USE?YES HOW OFTEN AND HOW MUCH? 2/DAY SEXUAL HX HAD SEX IN THE LAST 12 MONTHS (VAGINAL, ORAL, OR ANAL)?YES WITHWOMEN ONLY USE PROTECTION?NO HAVE YOU EVER HAD AN STD?NO HIV / HEP-C SCREENING HIV TEST OFFERED TO PATIENT:YES DATE OFFERED:04/23/2016 TEST ACCEPTED:NO HEP-C TEST OFFERED TO PATIENT:YES DATE OFFERED:07/25/2018 REASON:PATIENT DECLINED TEST ACCEPTED:NO REASON:PATIENT DECLINED BROCHURE PROVIDED TO PATIENTYES MUSLIM MUSLIM NO RESTORATION BELIEFS THAT WOULD IMPACT HEALTH CARE. 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 DIET: CONSISTENT CARBOHYDRATE, DASH DIET. EXERCISE: NONE. MARITAL STATUS: ENGAGED. OTHERS AT HOME: [place]. REVIEW OF SYSTEMS CONSTITUTIONAL: ANY RECENT FEVER NO . CHILLS NO . WEIGHT CHANGE OF UNKNOWN REASONS NO . GASTROENTEROLOGY: NEW UNEXPLAINABLE CHANGES IN BOWEL CONTROL NO . CONSTIPATION NO . GENITOURINARY: ANY NEW CHANGE IN BLADDER CONTROL? NO . NEUROLOGY: NEW ONSET DIZZINESS OR NEUROLOGICAL CHANGES NOT MENTIONED NO . NEW NUMBNESS OR PAIN PATTERNS NOT MENTIONED AND PERTINENT TO TODAY'S VISIT NO . CARDIOLOGY: NEW CHEST PRESSURE NO . PATIENT DENIES NO . RESPIRATORY: UNEXPLAINABLE COUGH NO . NEW SHORTNESS OF BREATH NO . VITAL SIGNS WT 276 LBS, HT 66", BMI 44.54 INDEX, BP 122/62 MANUAL, HR 107 /MIN, RR 20 /MIN, TEMP 96.5 F, OXYGEN SAT % 97%, SAFE IN ENV? (Y/N) YES, REVIEWED BY: MARY CARMEN ROSALES MA. EXAMINATION GENERAL EXAMINATION: GENERALNO ACUTE DISTRESS, WELL NOURISHED AND HYDRATED. PSYCHAPPROPRIATE MOOD AND AFFECT . LUNGS:CLEAR TO AUSCULTATION BILATERALLY, NO WHEEZES, RHONCHI, RALES. HEART:MECHANICAL VALVE IN PLACE HEART RATE REGULAR. ASSESSMENTS DIABETIC PERIPHERAL NEUROPATHY - E11.42 (PRIMARY), RISK: (NULL) TREATMENT DIABETIC PERIPHERAL NEUROPATHY REFILL HYDROCODONE-ACETAMINOPHEN TABLET, 10-325 MG, 1 TABLET NEEDED, ORALLY, Q6H PRN SEVERE PAIN MDD2 #75 TABS SHOULD LAST 30 DAYS, 30 DAYS, 75, REFILLS 0 NOTES: 40-YEAR-OLD MALE IN FOR CHRONIC PAIN FOLLOW-UP. PATIENT ADMITS TO RECREATIONAL MARIJUANA USE WHICH WAS DISCUSSED WITH PATIENT AND HE WAS INFORMED THAT THIS PROGRAM OR PROJECT ADMINISTRATOR WOULD NOT PRESCRIBE NARCOTICS IF HE CONTINUED USE OF MARIJUANA AND THIS INCLUDES MEDICAL MARIJUANA. PATIENT EXPRESSED UNDERSTANDING OF THIS. GIVEN PRESENTING SYMPTOMS RECOMMENDED CONTINUATION CURRENT MEDICATION REGIMEN WITH FOLLOW-UP IN 3 MONTHS. PATIENT HAS EXPRESSED UNDERSTANDING OF AND WAS IN AGREEMENT WITH TREATMENT PLAN. GIVEN TIME TO ASK QUESTIONS AND EXPRESS CONCERNS. [employer] REGISTRY REVIEWED AND DEMONSTRATES COMPLLIANCE. (REF #[id number] ) BRINGS IN MEDICATIONS WHICH IS APPROPRIATE FOR WHAT WAS DISPENSED. RECENT URINE TOXICOLOGY REVIEWED. NO UNAUTHORIZED MEDICATIONS. NO ILLICIT SUBSTANCES AND PRESCRIBED MEDICATIONS WERE PRESENT. PROCEDURE CODES [id number] ESTABILISHED PATIENT [facility] CHARGE DISPOSITION & COMMUNICATION FOLLOW UP 3 MONTHS (REASON: NEUROPATHY ) ELECTRONICALLY SIGNED BY FAUSTO QUICK ON 09/22/2020 AT 08:25 AM EDT DISCLAIMER : THIS IS A VISIT SUMMARY EXTRACTED FROM THE [email or web address] CHART. IT IS NOT A COPY OF THE [email or web address] PROGRESS NOTE. NATED
== END ==
LOC: M PAIN 14:00
PROVIDERS: ATTEND Family Medicine
DX: E11.42 Type 2 diabetes mellitus with diabetic polyneuropathy (principal); Z95.2 Presence of prosthetic heart valve; G47.30 Sleep apnea, unspecified; E78.5 Hyperlipidemia, unspecified; M48.061 Spinal stenosis, lumbar region without neurogenic claudication; G47.00 Insomnia, unspecified; I48.20 Chronic atrial fibrillation, unspecified; I42.0 Dilated cardiomyopathy; G45.3 Amaurosis fugax; F17.210 Nicotine dependence, cigarettes, uncomplicated; Z79.01 Long term (current) use of anticoagulants; Z79.84 Long term (current) use of oral hypoglycemic drugs; Z79.899 Other long term (current) drug therapy; Z79.891 Long term (current) use of opiate analgesic

== ENCOUNTER → 2020-10-25 | Outpatient (CLI) | payer OTHER ==
[~2020-10-25] MED LIST changes: -CEFD1CAP8 PO; +CEFD300C41 PO; +FLUV25TA13; -FLUV25TA2; -LEVO500T3; -LEVO500T3 PO; +LEVO500T4; +LEVO500T4 PO; -TERB250T12 PO; +TERB250T91 PO
== END ==
LOC: M PLAIMG 13:12
PROVIDERS: ATTEND Physician Assistant Medical
DX: R05 Cough (principal)

== ENCOUNTER → 2020-11-07 | Outpatient (CLI) | payer OTHER ==
[~2020-11-07] MED LIST changes: +CEFD1CAP8 PO; -CEFD300C41 PO; -FLUV25TA13; +FLUV25TA2; +LEVO500T3; +LEVO500T3 PO; -LEVO500T4; -LEVO500T4 PO; +TERB250T12 PO; -TERB250T91 PO
[2020-11-07 17:46] LABS: HEMATOCRIT 45.4 % (42.0-52.0); HEMOGLOBIN 14.9 g/dl (13.5-17.5); MEAN CORPUSCULAR HEMOGLOBIN 30.7 pg (27.0-33.0); MEAN CORPUSCULAR HGB CONC 32.8 g/dl (32.0-36.5); MEAN CORPUSCULAR VOLUME 93.4 fl (80.0-96.0); PLATELET COUNT, AUTOMATED 276 10^3/uL (150-450); RED BLOOD COUNT 4.86 10^6/uL (4.30-6.10); WHITE BLOOD COUNT 6.8 10^3/uL (4.0-10.0)
[2020-11-07 17:58] LABS: INR 3.73; PROTHROMBIN TIME 37.8 SECONDS (12.5-14.3)
[2020-11-07 18:09] LABS: BLOOD UREA NITROGEN 15 MG/DL (7-18); CALCIUM LEVEL 8.7 MG/DL (8.5-10.1); CARBON DIOXIDE LEVEL 37 MEQ/L (21-32); CHLORIDE LEVEL 99 MEQ/L (98-107); CREATININE FOR GFR 1.29 MG/DL (0.70-1.30); GLOMERULAR FILTRATION RATE > 60.0 (>60); GLUCOSE, FASTING 186 MG/DL (70-100); LDH LACTATE DEHYDROGENASE 362 U/L (87-241); POTASSIUM SERUM 3.4 MEQ/L (3.5-5.1); SODIUM LEVEL 140 MEQ/L (136-145)
== END ==
LOC: M PLALAB 14:21
PROVIDERS: ATTEND Physician Assistant
DX: Z95.811 Presence of heart assist device (principal)

== ENCOUNTER → 2020-12-22 | Outpatient (CLI) | payer OTHER | LOC: M PAIN 13:45 | PROVIDERS: ATTEND Anesthesiology | DX: Z53.21 Procedure and treatment not carried out due to patient leaving prior to being seen by health care provider (principal) ==

== ENCOUNTER → 2020-12-27 | Outpatient (CLI) | payer OTHER ==
[~2020-12-27] MED LIST changes: -CEFD1CAP8 PO; +CEFD300C41 PO; +FLUV25TA13; -FLUV25TA2; -LEVO500T3; -LEVO500T3 PO; +LEVO500T4; +LEVO500T4 PO; -TERB250T12 PO; +TERB250T91 PO
== END ==
LOC: M PAIN 09:00
PROVIDERS: ATTEND Anesthesiology
DX: E11.42 Type 2 diabetes mellitus with diabetic polyneuropathy (principal); M54.5 Low back pain; G47.30 Sleep apnea, unspecified; E78.5 Hyperlipidemia, unspecified; M48.061 Spinal stenosis, lumbar region without neurogenic claudication; G47.00 Insomnia, unspecified; I48.20 Chronic atrial fibrillation, unspecified; F17.210 Nicotine dependence, cigarettes, uncomplicated; G45.3 Amaurosis fugax; Z79.84 Long term (current) use of oral hypoglycemic drugs; Z79.01 Long term (current) use of anticoagulants; Z79.891 Long term (current) use of opiate analgesic; Z79.899 Other long term (current) drug therapy

== ENCOUNTER → 2021-01-05 | Outpatient (CLI) | payer OTHER ==
[~2021-01-05] MED LIST changes: +CEFD1CAP8 PO; -CEFD300C41 PO; -FLUV25TA13; +FLUV25TA2; +LEVO500T3; +LEVO500T3 PO; -LEVO500T4; -LEVO500T4 PO; +TERB250T12 PO; -TERB250T91 PO
[2021-01-05 18:07] LABS: HEMATOCRIT 54.8 % (42.0-52.0); HEMOGLOBIN 18.2 g/dl (13.5-17.5); MEAN CORPUSCULAR HGB CONC 33.2 g/dl (32.0-36.5); MEAN CORPUSCULAR VOLUME 93.4 fl (80.0-96.0); PLATELET COUNT, AUTOMATED 292 10^3/uL (150-450); RED BLOOD COUNT 5.87 10^6/uL (4.30-6.10); WHITE BLOOD COUNT 9.4 10^3/uL (4.0-10.0)
[2021-01-05 18:20] LABS: INR 2.43; PROTHROMBIN TIME 26.8 SECONDS (12.7-14.5)
[2021-01-05 18:23] LABS: BLOOD UREA NITROGEN 19 MG/DL (7-18); CALCIUM LEVEL 9.7 MG/DL (8.5-10.1); CARBON DIOXIDE LEVEL 32 MEQ/L (21-32); CHLORIDE LEVEL 101 MEQ/L (98-107); CREATININE FOR GFR 1.27 MG/DL (0.70-1.30); GLOMERULAR FILTRATION RATE > 60.0 (>60); GLUCOSE, FASTING 147 MG/DL (70-100); LDH LACTATE DEHYDROGENASE 402 U/L (87-241); POTASSIUM SERUM 4.1 MEQ/L (3.5-5.1); SODIUM LEVEL 138 MEQ/L (136-145)
== END ==
LOC: M PLALAB 13:37
PROVIDERS: ATTEND Physician Assistant Medical
DX: Z95.811 Presence of heart assist device (principal)

== ENCOUNTER → 2021-01-05 | Outpatient (CLI) | payer OTHER ==
[2021-01-05 18:33] LABS: FREE T4 1.03 NG/DL (0.76-1.46); PERCENT SATURATION 31.5 % (19.7-50.0); THYROID STIMULATING HORMONE 0.912 uIU/ML (0.358-3.740)
== END ==
LOC: M PLALAB 13:35
DX: Z95.811 Presence of heart assist device (principal)

== ENCOUNTER → 2021-02-23 | Outpatient (CLI) | payer OTHER ==
[~2021-02-23] MED LIST changes: -TERB250T12 PO; +TERB250T91 PO
[2021-02-23 16:09] LABS: HEMOGLOBIN 17.9 g/dl (13.5-17.5); MEAN CORPUSCULAR HEMOGLOBIN 31.7 pg (27.0-33.0); MEAN CORPUSCULAR HGB CONC 34.4 g/dl (32.0-36.5); MEAN CORPUSCULAR VOLUME 92.2 fl (80.0-96.0); PLATELET COUNT, AUTOMATED 276 10^3/uL (150-450); RED BLOOD COUNT 5.64 10^6/uL (4.30-6.10); WHITE BLOOD COUNT 8.9 10^3/uL (4.0-10.0)
[2021-02-23 16:37] LABS: ALT/SGPT 43 U/L (12-78); BILIRUBIN,TOTAL 0.4 MG/DL (0.2-1.0); BLOOD UREA NITROGEN 21 MG/DL (7-18); CALCIUM LEVEL 9.9 MG/DL (8.5-10.1); CARBON DIOXIDE LEVEL 31 MEQ/L (21-32); CHLORIDE LEVEL 103 MEQ/L (98-107); CHOLESTEROL LEVEL 242 MG/DL (<200); CREATININE FOR GFR 1.22 MG/DL (0.70-1.30); GLOMERULAR FILTRATION RATE > 60.0 (>60); GLUCOSE, FASTING 181 MG/DL (70-100); HDL CHOLESTEROL 43 MG/DL (>40); SODIUM LEVEL 138 MEQ/L (136-145); TRIGLYCERIDES LEVEL 351 MG/DL (<150)
[2021-02-23 16:38] LABS: ALBUMIN 4.1 GM/DL (3.2-5.2); CHOLESTEROL RISK RATIO 5.627 (<5); FERRITIN 119 NG/ML (26-388); IRON (FE) 90 UG/DL (65-175); LDL CHOLESTEROL 129 MG/DL (<100); NON-HDL-C 199 MG/DL; PERCENT SATURATION 25.4 % (19.7-50.0); TOTAL IRON BINDING CAPACITY 354 UG/DL (250-450); TOTAL PROTEIN 7.8 GM/DL (6.4-8.2)
[2021-02-23 17:23] LABS: CREATININE, URINE 17.6 MG/DL; MALB URINE SIEMENS 5.2 MG/L; MAU/CREAT RATIO 29.5 MCG/MG (0.0-30.0)
[2021-02-23 19:34] LABS: HEMOGLOBIN A1c 7.7 %
== END ==
LOC: M PLALAB 12:51
PROVIDERS: ATTEND Family Medicine
DX: E11.42 Type 2 diabetes mellitus with diabetic polyneuropathy (principal)

== ENCOUNTER → 2021-02-23 | Outpatient (CLI) | payer OTHER ==
[2021-02-23 16:21] LABS: INR 2.37; PROTHROMBIN TIME 26.3 SECONDS (12.7-14.5)
== END ==
LOC: M PLALAB 12:56
PROVIDERS: ATTEND Physician Assistant Medical
DX: Z95.811 Presence of heart assist device (principal)

== ENCOUNTER → 2021-03-22 | Outpatient (CLI) | payer OTHER ==
[2021-03-22 10:22] LABS: HEMATOCRIT 44.1 % (42.0-52.0); HEMOGLOBIN 15.5 g/dl (13.5-17.5); MEAN CORPUSCULAR HEMOGLOBIN 32.3 pg (27.0-33.0); MEAN CORPUSCULAR HGB CONC 35.1 g/dl (32.0-36.5); MEAN CORPUSCULAR VOLUME 91.9 fl (80.0-96.0); PLATELET COUNT, AUTOMATED 241 10^3/uL (150-450); WHITE BLOOD COUNT 6.8 10^3/uL (4.0-10.0)
[2021-03-22 10:33] LABS: INR 3.15; PROTHROMBIN TIME 32.7 SECONDS (12.7-14.5)
[2021-03-22 10:54] LABS: BLOOD UREA NITROGEN 20 MG/DL (7-18); CALCIUM LEVEL 9.1 MG/DL (8.5-10.1); CARBON DIOXIDE LEVEL 30 MEQ/L (21-32); CHLORIDE LEVEL 99 MEQ/L (98-107); CREATININE FOR GFR 1.25 MG/DL (0.70-1.30); GLOMERULAR FILTRATION RATE > 60.0 (>60); GLUCOSE, FASTING 306 MG/DL (70-100); LDH LACTATE DEHYDROGENASE 300 U/L (87-241); POTASSIUM SERUM 3.9 MEQ/L (3.5-5.1); SODIUM LEVEL 137 MEQ/L (136-145)
== END ==
LOC: M PLALAB 09:09
DX: Z95.811 Presence of heart assist device (principal)

== ENCOUNTER → 2021-05-24 | Outpatient (CLI) | payer OTHER ==
[~2021-05-24] MED LIST changes: -CEFD1CAP8 PO; +CEFD300C41 PO; +FLUV25TA13; -FLUV25TA2; -LEVO500T3; -LEVO500T3 PO; +LEVO500T4; +LEVO500T4 PO
[2021-05-24 13:23] LABS: HEMATOCRIT 44.5 % (42.0-52.0); HEMOGLOBIN 16.3 g/dl (13.5-17.5); MEAN CORPUSCULAR HEMOGLOBIN 32.3 pg (27.0-33.0); MEAN CORPUSCULAR VOLUME 88.3 fl (80.0-96.0); PLATELET COUNT, AUTOMATED 275 10^3/uL (150-450); RED BLOOD COUNT 5.04 10^6/uL (4.30-6.10); WHITE BLOOD COUNT 8.5 10^3/uL (4.0-10.0)
[2021-05-24 13:24] LABS: INR 2.36; PROTHROMBIN TIME 26.2 SECONDS (12.7-14.5)
[2021-05-24 13:25] LABS: MEAN CORPUSCULAR HGB CONC 36.6 g/dl (32.0-36.5)
[2021-05-24 13:43] LABS: BLOOD UREA NITROGEN 22 MG/DL (7-18); CALCIUM LEVEL 9.7 MG/DL (8.5-10.1); CARBON DIOXIDE LEVEL 27 MEQ/L (21-32); CHLORIDE LEVEL 100 MEQ/L (98-107); CREATININE FOR GFR 1.33 MG/DL (0.70-1.30); GLOMERULAR FILTRATION RATE > 60.0 (>60); GLUCOSE, FASTING 139 MG/DL (70-100); LDH LACTATE DEHYDROGENASE 293 U/L (87-241); POTASSIUM SERUM 3.5 MEQ/L (3.5-5.1); SODIUM LEVEL 137 MEQ/L (136-145)
== END ==
LOC: M PLALAB 10:20
PROVIDERS: ATTEND Physician Assistant
DX: Z95.811 Presence of heart assist device (principal)

== ENCOUNTER → 2021-05-24 | Outpatient (CLI) | payer OTHER ==
[2021-05-24 13:43] LABS: RHEUMATOID FACTOR QUANT < 10.0 IU/ML (<15.0); TOTAL PROTEIN 7.7 GM/DL (6.4-8.2)
[2021-05-24 13:52] LABS: FOLATE 13.2 NG/ML; VITAMIN B12 LEVEL 370 PG/ML
[2021-05-24 14:26] LABS: HEMOGLOBIN A1c 8.2 %
[2021-05-25 10:20] LABS: ALBUMIN 4.71 GM/DL (3.29-5.55); ALBUMIN % 61.2 % (55.8-66.1); ALPHA-1-GLOBULIN % 3.7 % (2.9-4.9); ALPHA-1-GLOBULINS 0.26 GM/DL (0.17-0.41); ALPHA-2-GLOBULINS 0.52 GM/DL (0.42-0.99); ALPHA-2-GLOBULINS % 6.7 % (7.1-11.8); BETA-1-GLOBULINS 0.54 GM/DL (0.28-0.60); BETA-2-GLOBULINS 0.45 GM/DL (0.19-0.55); BETA-2-GLOBULINS % 5.8 % (3.2-6.5); GAMMA GLOBULINS 1.22 GM/DL (0.65-1.58)
[2021-05-25 10:21] LABS: GAMMA GLOBULIN % 15.9 % (11.1-18.8)
== END ==
LOC: M PLALAB 10:24
PROVIDERS: ATTEND Psychiatry & Neurology Neurology
DX: G62.9 Polyneuropathy, unspecified (principal)

== ENCOUNTER → 2021-09-21 | Outpatient (CLI) | payer OTHER | LOC: M RAD 11:29 | PROVIDERS: ATTEND Physician Assistant Medical | DX: T82.7XXA Infection and inflammatory reaction due to other cardiac and vascular devices, implants and grafts, initial encounter (principal) ==

== ENCOUNTER → 2021-10-18 | Outpatient (REF) | payer OTHER ==
[2021-10-18 18:06] LABS: INR 2.59; PROTHROMBIN TIME 28.1 SECONDS (12.7-14.5)
== END ==
LOC: M LAB REF 15:55
PROVIDERS: ATTEND Internal Medicine Cardiovascular Disease
DX: T82.7XXA Infection and inflammatory reaction due to other cardiac and vascular devices, implants and grafts, initial encounter (principal)

== ENCOUNTER → 2021-10-20 | Outpatient (REF) | payer OTHER ==
[2021-10-20 16:15] LABS: INR 2.72; PROTHROMBIN TIME 29.2 SECONDS (12.7-14.5)
== END ==
LOC: M LAB REF 15:34 → M LABWUC 15:34
PROVIDERS: ATTEND Internal Medicine Cardiovascular Disease
DX: T82.7XXA Infection and inflammatory reaction due to other cardiac and vascular devices, implants and grafts, initial encounter (principal); Y83.2 Surgical operation with anastomosis, bypass or graft as the cause of abnormal reaction of the patient, or of later complication, without mention of misadventure at the time of the procedure

== ENCOUNTER → 2021-10-25 | Outpatient (REF) | payer OTHER ==
[2021-10-25 15:46] LABS: BASO # 0.1 10^3/uL (0.0-0.2); BASO % 0.9 % (0.0-1.0); EOS # 0.1 10^3/uL (0.0-0.5); EOS % 1.9 % (0.0-3.0); HEMATOCRIT 38.3 % (42.0-52.0); HEMOGLOBIN 12.5 g/dl (13.5-17.5); LYMPH # 1.6 10^3/uL (1.5-5.0); MEAN CORPUSCULAR HEMOGLOBIN 30.6 pg (27.0-33.0); MEAN CORPUSCULAR HGB CONC 32.6 g/dl (32.0-36.5); MEAN CORPUSCULAR VOLUME 93.9 fl (80.0-96.0); MONO # 0.6 10^3/uL (0.0-0.8); MONO % 9.3 % (2.0-8.0); NEUTROPHILS # 3.9 10^3/uL (1.5-8.5); NEUTROPHILS % 62.4 % (36.0-66.0); PLATELET COUNT, AUTOMATED 264 10^3/uL (150-450); RED BLOOD COUNT 4.08 10^6/uL (4.30-6.10); WHITE BLOOD COUNT 6.3 10^3/uL (4.0-10.0)
[2021-10-25 16:04] LABS: INR 2.97; PROTHROMBIN TIME 31.2 SECONDS (12.7-14.5)
[2021-10-25 16:38] LABS: ERYTHROCYTE SEDIMENTATION RATE 1 mm/hr (0-15)
[2021-10-25 17:32] LABS: ALBUMIN 3.4 GM/DL (3.2-5.2); ALT/SGPT 24 U/L (12-78); BILIRUBIN,TOTAL 0.3 MG/DL (0.2-1.0); BLOOD UREA NITROGEN 12 MG/DL (7-18); C REACTIVE PROTEIN QUANTITATIV 2.04 MG/DL (0.00-0.30); CALCIUM LEVEL 8.6 MG/DL (8.5-10.1); CARBON DIOXIDE LEVEL 26 MEQ/L (21-32); CHLORIDE LEVEL 105 MEQ/L (98-107); CREATININE FOR GFR 1.14 MG/DL (0.70-1.30); GLOMERULAR FILTRATION RATE > 60.0 (>60); GLUCOSE, FASTING 238 MG/DL (70-100); POTASSIUM SERUM 3.4 MEQ/L (3.5-5.1); SODIUM LEVEL 139 MEQ/L (136-145); TOTAL PROTEIN 6.4 GM/DL (6.4-8.2)
== END ==
LOC: M LAB REF 14:56
PROVIDERS: ATTEND Internal Medicine Cardiovascular Disease
DX: T82.7XXA Infection and inflammatory reaction due to other cardiac and vascular devices, implants and grafts, initial encounter (principal)

== ENCOUNTER → 2021-11-03 | Outpatient (REF) | payer OTHER ==
[2021-11-03 13:23] LABS: INR 1.86; PROTHROMBIN TIME 21.9 SECONDS (12.7-14.5)
== END ==
LOC: M LAB REF 12:39
PROVIDERS: ATTEND Internal Medicine Cardiovascular Disease
DX: T82.7XXA Infection and inflammatory reaction due to other cardiac and vascular devices, implants and grafts, initial encounter (principal); Y84.8 Other medical procedures as the cause of abnormal reaction of the patient, or of later complication, without mention of misadventure at the time of the procedure

== ENCOUNTER → 2021-11-24 | Outpatient (REF) | payer OTHER ==
[~2021-11-24] MED LIST changes: +LEVO1TAB39; +LEVO1TAB39 PO; -LEVO500T4; -LEVO500T4 PO
[2021-11-24 17:11] LABS: BASO # 0.1 10^3/uL (0.0-0.2); BASO % 1.1 % (0.0-1.0); EOS # 0.1 10^3/uL (0.0-0.5); HEMATOCRIT 43.4 % (42.0-52.0); HEMOGLOBIN 14.6 g/dl (13.5-17.5); LYMPH # 1.6 10^3/uL (1.5-5.0); LYMPH % 22.5 % (24.0-44.0); MEAN CORPUSCULAR HEMOGLOBIN 31.1 pg (27.0-33.0); MEAN CORPUSCULAR HGB CONC 33.6 g/dl (32.0-36.5); MEAN CORPUSCULAR VOLUME 92.3 fl (80.0-96.0); MONO # 0.8 10^3/uL (0.0-0.8); MONO % 10.5 % (2.0-8.0); NEUTROPHILS # 4.6 10^3/uL (1.5-8.5); NEUTROPHILS % 64.3 % (36.0-66.0); PLATELET COUNT, AUTOMATED 245 10^3/uL (150-450); WHITE BLOOD COUNT 7.2 10^3/uL (4.0-10.0)
[2021-11-24 17:18] LABS: PROTHROMBIN TIME 46.9 SECONDS (12.7-14.5)
[2021-11-24 17:33] LABS: INR 5.07
[2021-11-24 18:04] LABS: BLOOD UREA NITROGEN 16 MG/DL (7-18); C REACTIVE PROTEIN QUANTITATIV 0.39 MG/DL (0.00-0.30); CALCIUM LEVEL 8.8 MG/DL (8.5-10.1); CARBON DIOXIDE LEVEL 29 MEQ/L (21-32); CHLORIDE LEVEL 98 MEQ/L (98-107); CREATININE FOR GFR 1.11 MG/DL (0.70-1.30); GLOMERULAR FILTRATION RATE > 60.0 (>60); GLUCOSE, FASTING 206 MG/DL (70-100); MAGNESIUM LEVEL 1.6 MG/DL (1.8-2.4); POTASSIUM SERUM 3.3 MEQ/L (3.5-5.1); SODIUM LEVEL 136 MEQ/L (136-145)
== END ==
LOC: M LAB REF 16:19
PROVIDERS: ATTEND Physician Assistant Medical
DX: T82.7XXA Infection and inflammatory reaction due to other cardiac and vascular devices, implants and grafts, initial encounter (principal)

== ENCOUNTER → 2021-11-27 | Outpatient (REF) | payer OTHER ==
[2021-11-27 17:16] LABS: BASO # 0.1 10^3/uL (0.0-0.2); BASO % 0.7 % (0.0-1.0); EOS # 0.1 10^3/uL (0.0-0.5); EOS % 0.9 % (0.0-3.0); HEMOGLOBIN 15.2 g/dl (13.5-17.5); LYMPH # 1.1 10^3/uL (1.5-5.0); LYMPH % 10.9 % (24.0-44.0); MEAN CORPUSCULAR HEMOGLOBIN 30.9 pg (27.0-33.0); MEAN CORPUSCULAR VOLUME 93.5 fl (80.0-96.0); MONO # 0.8 10^3/uL (0.0-0.8); MONO % 7.8 % (2.0-8.0); NEUTROPHILS # 7.6 10^3/uL (1.5-8.5); PLATELET COUNT, AUTOMATED 244 10^3/uL (150-450); RED BLOOD COUNT 4.92 10^6/uL (4.30-6.10); WHITE BLOOD COUNT 9.6 10^3/uL (4.0-10.0)
[2021-11-27 17:48] LABS: BLOOD UREA NITROGEN 18 MG/DL (7-18); C REACTIVE PROTEIN QUANTITATIV 0.85 MG/DL (0.00-0.30); CALCIUM LEVEL 8.5 MG/DL (8.5-10.1); CARBON DIOXIDE LEVEL 26 MEQ/L (21-32); CHLORIDE LEVEL 99 MEQ/L (98-107); CREATININE FOR GFR 1.17 MG/DL (0.70-1.30); GLOMERULAR FILTRATION RATE > 60.0 (>60); GLUCOSE, FASTING 305 MG/DL (70-100); POTASSIUM SERUM 3.8 MEQ/L (3.5-5.1); SODIUM LEVEL 136 MEQ/L (136-145)
== END ==
LOC: M LAB REF 16:20
PROVIDERS: ATTEND Physician Assistant Medical
DX: T82.7XXA Infection and inflammatory reaction due to other cardiac and vascular devices, implants and grafts, initial encounter (principal)

== ENCOUNTER → 2022-01-26 | Outpatient (REF) | payer OTHER ==
[2022-01-26 13:21] LABS: BASO # 0.1 10^3/uL (0.0-0.2); BASO % 0.9 % (0.0-1.0); EOS # 0.1 10^3/uL (0.0-0.5); HEMATOCRIT 42.6 % (42.0-52.0); HEMOGLOBIN 14.4 g/dl (13.5-17.5); LYMPH # 1.7 10^3/uL (1.5-5.0); LYMPH % 19.2 % (24.0-44.0); MEAN CORPUSCULAR HEMOGLOBIN 31.4 pg (27.0-33.0); MEAN CORPUSCULAR HGB CONC 33.8 g/dl (32.0-36.5); MONO # 0.9 10^3/uL (0.0-0.8); MONO % 9.8 % (2.0-8.0); NEUTROPHILS # 6.2 10^3/uL (1.5-8.5); NEUTROPHILS % 68.1 % (36.0-66.0); PLATELET COUNT, AUTOMATED 285 10^3/uL (150-450); RED BLOOD COUNT 4.58 10^6/uL (4.30-6.10); WHITE BLOOD COUNT 9.1 10^3/uL (4.0-10.0)
[2022-01-26 13:32] LABS: INR 1.84; PROTHROMBIN TIME 21.6 SECONDS (12.5-14.5)
[2022-01-26 14:01] LABS: BLOOD UREA NITROGEN 22 MG/DL (7-18); CALCIUM LEVEL 9.3 MG/DL (8.5-10.1); CARBON DIOXIDE LEVEL 25 MEQ/L (21-32); CHLORIDE LEVEL 103 MEQ/L (98-107); CREATININE FOR GFR 1.08 MG/DL (0.70-1.30); GLOMERULAR FILTRATION RATE > 60.0 (>60); GLUCOSE, FASTING 196 MG/DL (70-100); LDH LACTATE DEHYDROGENASE 332 U/L (87-241); MAGNESIUM LEVEL 2.1 MG/DL (1.8-2.4); POTASSIUM SERUM 4.3 MEQ/L (3.5-5.1); SODIUM LEVEL 137 MEQ/L (136-145)
== END ==
LOC: M LAB REF 12:23
PROVIDERS: ATTEND Physician Assistant Medical
DX: T82.7XXA Infection and inflammatory reaction due to other cardiac and vascular devices, implants and grafts, initial encounter (principal)

== ENCOUNTER → 2022-02-21 | Outpatient (REF) | payer OTHER ==
[2022-02-21 17:20] LABS: BASO # 0.1 10^3/uL (0.0-0.2); BASO % 0.8 % (0.0-1.0); EOS % 0.3 % (0.0-3.0); HEMOGLOBIN 15.2 g/dl (13.5-17.5); LYMPH # 1.7 10^3/uL (1.5-5.0); LYMPH % 16.9 % (24.0-44.0); MEAN CORPUSCULAR HEMOGLOBIN 30.4 pg (27.0-33.0); MEAN CORPUSCULAR HGB CONC 33.8 g/dl (32.0-36.5); MONO # 0.8 10^3/uL (0.0-0.8); MONO % 7.7 % (2.0-8.0); NEUTROPHILS # 7.4 10^3/uL (1.5-8.5); NEUTROPHILS % 73.8 % (36.0-66.0); PLATELET COUNT, AUTOMATED 313 10^3/uL (150-450); WHITE BLOOD COUNT 10.1 10^3/uL (4.0-10.0)
[2022-02-21 17:31] LABS: INR 2.41; PROTHROMBIN TIME 26.7 SECONDS (12.5-14.5)
[2022-02-21 17:56] LABS: ALBUMIN 3.8 GM/DL (3.2-5.2); ALT/SGPT 27 U/L (12-78); BILIRUBIN,TOTAL 0.7 MG/DL (0.2-1.0); BLOOD UREA NITROGEN 17 MG/DL (7-18); CALCIUM LEVEL 9.6 MG/DL (8.5-10.1); CARBON DIOXIDE LEVEL 24 MEQ/L (21-32); CHLORIDE LEVEL 97 MEQ/L (98-107); CREATININE FOR GFR 1.15 MG/DL (0.70-1.30); GLOMERULAR FILTRATION RATE > 60.0 (>60); GLUCOSE, FASTING 223 MG/DL (70-100); LDH LACTATE DEHYDROGENASE 443 U/L (87-241); NT-PRO BNP 1786 PG/ML (<125); POTASSIUM SERUM 3.5 MEQ/L (3.5-5.1); SODIUM LEVEL 133 MEQ/L (136-145); TOTAL PROTEIN 7.6 GM/DL (6.4-8.2)
[2022-02-21 21:18] LABS: HEMOGLOBIN A1c 9.1 %
== END ==
LOC: M LAB REF 16:40
PROVIDERS: ATTEND Physician Assistant Medical
DX: I50.42 Chronic combined systolic (congestive) and diastolic (congestive) heart failure (principal)

== ENCOUNTER 2022-06-26 11:42 | Emergency (ER) | payer OTHER ==
[2022-06-26] MEDS ORDERED: LIDOCAINE 2% 5ML JELLY UROJET TOP ONE (12:05)
[2022-06-26 12:14] VITALS: BP_SYST 72
[2022-06-26 12:45] LABS: BASO # 0.1 10^3/uL (0.0-0.2); BASO % 0.7 % (0.0-1.0); EOS # 0.1 10^3/uL (0.0-0.5); EOS % 0.4 % (0.0-3.0); HEMATOCRIT 44.7 % (42.0-52.0); LYMPH # 1.6 10^3/uL (1.5-5.0); LYMPH % 8.1 % (24.0-44.0); MEAN CORPUSCULAR HEMOGLOBIN 30.4 pg (27.0-33.0); MEAN CORPUSCULAR HGB CONC 35.8 g/dl (32.0-36.5); MONO # 1.1 10^3/uL (0.0-0.8); MONO % 5.9 % (2.0-8.0); NEUTROPHILS # 16.1 10^3/uL (1.5-8.5); NEUTROPHILS % 83.8 % (36.0-66.0); PLATELET COUNT, AUTOMATED 483 10^3/uL (150-450); RED BLOOD COUNT 5.26 10^6/uL (4.30-6.10); WHITE BLOOD COUNT 19.2 10^3/uL (4.0-10.0)
[2022-06-26] MEDS ORDERED: PIPERACILLIN/TAZOBACTAM SOD 4.5 GM in D5W MINI-BAG PLUS 50 ML IV ONE (12:45)
[2022-06-26 12:47] LABS: CK-MB VALUE MASS 10.4 NG/ML (<3.6)
[2022-06-26 12:49] LABS: ACETAMINOPHEN LEVEL < 2.0 UG/ML (10.0-20.0); CPK CREATINE PHOSPHOKINASE 428 U/L (46-171); MB/CK RELATIVE INDEX 2.42 (< OR =4); SALICYLATE LEVEL < 3.0 MG/DL (<30)
[2022-06-26 12:51] LABS: THYROID STIMULATING HORMONE 2.467 uIU/ML (0.55-4.78)
[2022-06-26 12:58] LABS: AMPHETAMINES LEVEL URINE NEGATIVE (NEGATIVE); BARBITURATES URINE NEGATIVE (NEGATIVE); BENZODIAZEPINES URINE NEGATIVE (NEGATIVE); CANNABINOIDS URINE NEGATIVE (NEGATIVE); COCAINE METABOLITE URINE NEGATIVE (NEGATIVE); METHADONE URINE NEGATIVE (NEGATIVE); OPIATES URINE NEGATIVE (NEGATIVE); PHENCYCLIDINE URINE NEGATIVE (NEGATIVE)
[2022-06-26 12:59] LABS: INR 3.51; PROTHROMBIN TIME 35.7 SECONDS (12.5-14.5)
[2022-06-26 13:00] LABS: PARTIAL THROMBOPLASTIN TIME 62.4 SECONDS (24.8-34.2)
[2022-06-26 13:18] LABS: RSV AMPLIFICATION NEGATIVE (NEGATIVE)
[2022-06-26] MEDS ORDERED: KCL 10MEQ/100ML SWI (KRUN) 10 MEQ in IV 1 EA IV ONE (13:20)
[2022-06-26 13:21] LABS: ALBUMIN 3.4 G/DL (3.2-5.2); ALKALINE PHOSPHATASE 103 U/L (46-116); ALT/SGPT 28 U/L (7.0-40); AST/SGOT 36 U/L (<34); BILIRUBIN,DIRECT 0.2 MG/DL (<0.4); BILIRUBIN,TOTAL 0.5 MG/DL (0.3-1.2); BLOOD UREA NITROGEN 10 MG/DL (9-23); CALCIUM LEVEL 8.8 MG/DL (8.5-10.1); CARBON DIOXIDE LEVEL 23 MMOL/L (20-31); CHLORIDE LEVEL 97 MMOL/L (98-107); CREATININE FOR GFR 1.13 MG/DL (0.70-1.30); ETHYL ALCOHOL (ETHANOL) 0.321 % (0.000-0.010); GLOMERULAR FILTRATION RATE > 60.0 (>60); GLUCOSE, FASTING 341 MG/DL (60-100); POTASSIUM SERUM 2.2 MMOL/L (3.5-5.1); SODIUM LEVEL 134 MMOL/L (136-145); TOTAL PROTEIN 7.4 G/DL (5.7-8.2)
[2022-06-26] MEDS ORDERED: LORazepam 2 MG/ML 1ML VIAL IV STA ×2 (13:32→15:02)
== END 2022-06-26 16:27 | disposition short-term general hospital (02) ==
LOC: M ED 11:42 → EDBD 11:42 → M ED 16:27
DX: R65.10 Systemic inflammatory response syndrome (SIRS) of non-infectious origin without acute organ dysfunction (principal); F10.129 Alcohol abuse with intoxication, unspecified; E87.6 Hypokalemia; T68.XXXA Hypothermia, initial encounter; X58.XXXA Exposure to other specified factors, initial encounter; Y92.009 Unspecified place in unspecified non-institutional (private) residence as the place of occurrence of the external cause; Y93.89 Activity, other specified; Y99.8 Other external cause status; I48.91 Unspecified atrial fibrillation; E11.9 Type 2 diabetes mellitus without complications; E78.5 Hyperlipidemia, unspecified; F41.9 Anxiety disorder, unspecified; G47.00 Insomnia, unspecified; F17.200 Nicotine dependence, unspecified, uncomplicated; Z79.01 Long term (current) use of anticoagulants; Z79.84 Long term (current) use of oral hypoglycemic drugs; Z79.899 Other long term (current) drug therapy
CPT/HCPCS: 51701; 70450; 71045; 80048; 80076; 80143; 80307; 81001; 82077; 82140; 82550; 82553; 83605; 84443; 85025; 85610; 85730; 87040; 87077; 87631; 93005; 93041; 94760; 96365; 96367; 96375; 96376; 99285; J2060; J2543

== ENCOUNTER 2022-07-07 02:37 | Emergency (ER) | payer OTHER ==
[2022-07-07] MEDS ORDERED: ROCURONIUM BROMIDE 50MG/5ML VIAL ONE (02:38)
[2022-07-07] MEDS ORDERED: ROCURONIUM BROMIDE 50MG/5ML VIAL IV ONE (03:00)
[2022-07-07] MEDS ORDERED: ETOMIDATE INJ 20MG/10ML VIAL IV ONE (03:00)
[2022-07-07] MEDS ORDERED: ETOMIDATE INJ 20MG/10ML VIAL As Ordered ONE (03:03)
[2022-07-07 03:08] LABS: BASO # 0.2 10^3/uL (0.0-0.2); BASO % 1.3 % (0.0-1.0); EOS # 0.2 10^3/uL (0.0-0.5); EOS % 1.8 % (0.0-3.0); HEMATOCRIT 42.9 % (42.0-52.0); HEMOGLOBIN 13.4 g/dl (13.5-17.5); LYMPH % 26.5 % (24.0-44.0); MEAN CORPUSCULAR HEMOGLOBIN 30.9 pg (27.0-33.0); MEAN CORPUSCULAR HGB CONC 31.2 g/dl (32.0-36.5); MEAN CORPUSCULAR VOLUME 98.8 fl (80.0-96.0); MONO # 0.9 10^3/uL (0.0-0.8); MONO % 7.7 % (2.0-8.0); NEUTROPHILS % 60.9 % (36.0-66.0); PLATELET COUNT, AUTOMATED 536 10^3/uL (150-450); RED BLOOD COUNT 4.34 10^6/uL (4.30-6.10); WHITE BLOOD COUNT 11.4 10^3/uL (4.0-10.0)
[2022-07-07] MEDS ORDERED: PROPOFOL 1,000 MG/100 ML VIAL As Ordered ONE (03:08)
[2022-07-07] MEDS: propofoL 1,000 MG in IV 1 EA IV SCH ×2 (03:10→06:14)
[2022-07-07 03:30] LABS: ETHYL ALCOHOL (ETHANOL) < 0.003 % (0.000-0.010)
[2022-07-07 03:31] LABS: ACETAMINOPHEN LEVEL < 2.0 UG/ML (10.0-20.0); CPK CREATINE PHOSPHOKINASE 274 U/L (46-171)
[2022-07-07 03:32] LABS: SALICYLATE LEVEL < 3.0 MG/DL (<30)
[2022-07-07 03:37] LABS: OSMOLALITY SERUM 311 MOSM/KG (275-295)
[2022-07-07 03:39] LABS: ABG BASE EXCESS -9.6 (-2.0-2.0); ABG HCO3 17.1 MEQ/L (22.0-26.0); ABG O2 SATURATION 99.6 % (95.0-99.0); ABG PARTIAL PRESSURE CO2 40.2 mmHg (35.0-45.0); ABG STANDARD HCO3 16.9 MEQ/L (22.0-26.0); ABG TOTAL CO2 18.3 MEQ/L (22.0-29.0)
[2022-07-07 03:40] LABS: AMPHETAMINES LEVEL URINE NEGATIVE (NEGATIVE); COCAINE METABOLITE URINE NEGATIVE (NEGATIVE); METHADONE URINE NEGATIVE (NEGATIVE); OPIATES URINE NEGATIVE (NEGATIVE); PHENCYCLIDINE URINE NEGATIVE (NEGATIVE)
[2022-07-07 03:42] LABS: ABG pH (ARTERIAL) 7.246 UNITS (7.350-7.450)
[2022-07-07 03:43] LABS: BARBITURATES URINE POSITIVE (NEGATIVE); BENZODIAZEPINES URINE POSITIVE (NEGATIVE); CANNABINOIDS URINE POSITIVE (NEGATIVE)
[2022-07-07 03:45] LABS: ALBUMIN 3.7 G/DL (3.2-5.2); ALKALINE PHOSPHATASE 113 U/L (46-116); ALT/SGPT 48 U/L (7.0-40); AST/SGOT 65 U/L (<34); BILIRUBIN,DIRECT 0.2 MG/DL (<0.4); BILIRUBIN,TOTAL 0.5 MG/DL (0.3-1.2); BLOOD UREA NITROGEN 18 MG/DL (9-23); CALCIUM LEVEL 9.1 MG/DL (8.5-10.1); CARBON DIOXIDE LEVEL 18 MMOL/L (20-31); CHLORIDE LEVEL 93 MMOL/L (98-107); GLOMERULAR FILTRATION RATE 51.2 (>60); GLUCOSE, FASTING 437 MG/DL (60-100); POTASSIUM SERUM 3.5 MMOL/L (3.5-5.1); SODIUM LEVEL 134 MMOL/L (136-145); TOTAL PROTEIN 7.8 G/DL (5.7-8.2)
[2022-07-07] MEDS ORDERED: PIPERACILLIN/TAZOBACTAM SOD 3.375 GM in D5W MINI-BAG PLUS 50 ML IV ONE (05:00)
[2022-07-07] MEDS ORDERED: ROCURONIUM BROMIDE 50MG/5ML VIAL IV PRN (05:50)
[2022-07-07] MEDS ORDERED: MIDAZOLAM 100MG/100ML-0.9%NACL 100 MG in IV 1 EA IV SCH (05:50)
[2022-07-07 06:00] VITALS: BP 92/62
== END 2022-07-07 06:58 | disposition short-term general hospital (02) ==
LOC: EDBD 02:37 → M ED 02:37
DX: T50.901A Poisoning by unspecified drugs, medicaments and biological substances, accidental (unintentional), initial encounter (principal); N17.9 Acute kidney failure, unspecified; Z95.811 Presence of heart assist device; R40.20 Unspecified coma; E11.9 Type 2 diabetes mellitus without complications; Z79.4 Long term (current) use of insulin; Z79.84 Long term (current) use of oral hypoglycemic drugs; Z79.01 Long term (current) use of anticoagulants; Z79.899 Other long term (current) drug therapy
CPT/HCPCS: 36600; 71045; 80047; 80048; 80076; 80143; 80307; 82077; 82550; 82803; 83605; 83930; 84443; 85025; 87040; 87635; 93005; 93041; 94760; 96365; 96367; 96375; 99285; J2250; J2543

== ENCOUNTER 2022-12-25 23:33 | Emergency (ER) | payer OTHER ==
[~2022-12-25] VITALS: Ht 182.9 cm; Wt 104.3 kg
[~2022-12-25 23:33] MED LIST changes: -ROPI0.253 PO; +ROPI5TAB19 PO
[2022-12-25] MEDS ORDERED: NS 3,130 ML in IV 1 EA IV ONE (23:55)
[2022-12-26 00:34] LABS: ABG BASE EXCESS -9.3 (-2.0-2.0); ABG HCO3 14.1 MMOL/L (22.0-26.0); ABG O2 SATURATION 98.6 % (95.0-99.0); ABG PARTIAL PRESSURE CO2 24.1 mmHg (35.0-45.0); ABG PARTIAL PRESSURE O2 135.1 mmHg (75.0-100.0); ABG STANDARD HCO3 17.1 MMOL/L. (22.0-26.0); ABG TOTAL CO2 14.8 MMOL/L (22.0-29.0); ABG pH (ARTERIAL) 7.385 UNITS (7.350-7.450)
[2022-12-26 00:41] LABS: MEAN CORPUSCULAR HEMOGLOBIN 28.9 pg (27.0-33.0); MEAN CORPUSCULAR HGB CONC 33.5 g/dl (32.0-36.5); MEAN CORPUSCULAR VOLUME 86.2 fl (80.0-96.0); PLATELET COUNT, AUTOMATED 195 10^3/uL (150-450); RED BLOOD COUNT 2.39 10^6/uL (4.30-6.10); WHITE BLOOD COUNT 11.5 10^3/uL (4.0-10.0)
[2022-12-26 00:45] LABS: HEMATOCRIT 20.6 % (42.0-52.0); HEMOGLOBIN 6.9 g/dl (13.5-17.5)
[2022-12-26 01:06] LABS: AMORPHOUS SEDIMENT SMALL (NEGATIVE); APPEARANCE, URINE CLOUDY (CLEAR); BACTERIA, URINE AUTO NEGATIVE (NEGATIVE); BILIRUBIN, URINE AUTO NEGATIVE (NEGATIVE); BLOOD, URINE BLOOD 2+ (NEGATIVE); COLOR, URINE YELLOW (YELLOW); GLUCOSE, URINE (UA) AUTO 3+ mg/dL (NEGATIVE); KETONE, URINE AUTO TRACE mg/dL (NEGATIVE); LEUKOCYTE ESTERASE, URINE AUTO NEGATIVE (NEGATIVE); MUCUS, URINE SMALL (NEGATIVE); NITRITE, URINE AUTO NEGATIVE (NEGATIVE); PROTEIN, URINE AUTO 1+ mg/dL (NEGATIVE); RBC, URINE AUTO 7 /HPF (0-3); SPECIFIC GRAVITY URINE AUTO 1.022 (1.002-1.035); SQUAMOUS EPITHELIAL CELL UR AU 0 /HPF (0-6); UROBILINOGEN, URINE AUTO 0.2 mg/dL (0.0-2.0); WBC, URINE AUTO 7 /HPF (0-3)
[2022-12-26 01:07] LABS: PROCALCITONIN 35.12 ng/ml
[2022-12-26 01:13] LABS: PARTIAL THROMBOPLASTIN TIME 65.7 SECONDS (24.8-34.2)
[2022-12-26 01:21] LABS: ALBUMIN 0.8 G/DL (3.2-5.2); ALKALINE PHOSPHATASE 38 U/L (46-116); ALT/SGPT 13 U/L (7.0-40); AMYLASE < 20 U/L (30-118); AST/SGOT 19 U/L (<34); BILIRUBIN,DIRECT 0.2 MG/DL (<0.4); BILIRUBIN,TOTAL 0.2 MG/DL (0.3-1.2); BLOOD UREA NITROGEN 19 MG/DL (9-23); CALCIUM LEVEL 3.8 MG/DL (8.5-10.1); CARBON DIOXIDE LEVEL < 10.0 MMOL/L (20-31); CHLORIDE LEVEL 111 MMOL/L (98-107); CREATININE FOR GFR 0.79 MG/DL (0.70-1.30); GLOMERULAR FILTRATION RATE > 60.0 (>60); GLUCOSE, FASTING 309 MG/DL (60-100); POTASSIUM SERUM 2.5 MMOL/L (3.5-5.1); SODIUM LEVEL 137 MMOL/L (136-145); TOTAL PROTEIN 2.8 G/DL (5.7-8.2)
[2022-12-26] MEDS ORDERED: POTASSIUM CHLORIDE 10% LIQ 20MEQ/15ML UDC PO ONE (01:40)
[2022-12-26] MEDS ORDERED: KCL 10MEQ/100ML SWI (KRUN) 10 MEQ in IV 1 EA IV ONE (01:40)
[2022-12-26] MEDS ORDERED: HumuLIN R (REGULAR) INSULIN (NovoLIN R) **100U/ML** PER UNIT IV ONE (01:50)
[2022-12-26] MEDS ORDERED: CALCIUM GLUCONATE 1,000 MG in D5W MINI-BAG PLUS 100 ML IV ONE (01:50)
[2022-12-26] MEDS ORDERED: ISOVUE-370 76% 100ML VIAL As Ordered ONE (01:57)
[2022-12-26 02:32] LABS: METAMYELOCYTES 1 % (0-0); MONOCYTES 2 % (0-5); NEUTROPHILS 87 % (28-66)
[2022-12-26 02:33] LABS: DOHLE BODIES 1+; PLATELET ESTIMATE NORMAL (NORMAL)
[2022-12-26 02:34] LABS: BURR CELLS 1+; POLYCHROMASIA 1+
[2022-12-26 02:41] LABS: INR 6.74
[2022-12-26 02:42] VITALS: BP_SYST 70; TEMP 97.9; O2SAT 99
[2022-12-26 02:42] LABS: PROTHROMBIN TIME 57.3 SECONDS (12.5-14.5)
[2022-12-26 03:00] VITALS: BP_SYST 72; TEMP 97.8; O2SAT 100
[2022-12-26 03:04] LABS: ETHYL ALCOHOL (ETHANOL) < 0.003 % (0.000-0.010)
[2022-12-26 03:25] VITALS: BP_SYST 70; TEMP 98.6; O2SAT 97
[2022-12-26] MEDS ORDERED: PIPERACILLIN/TAZOBACTAM SOD 4.5 GM in D5W MINI-BAG PLUS 50 ML IV ONE (03:45)
== END 2022-12-26 03:15 | disposition short-term general hospital (02) ==
LOC: M ED 23:33
DX: A41.9 Sepsis, unspecified organism (principal); E83.51 Hypocalcemia; E87.6 Hypokalemia; D64.9 Anemia, unspecified; R41.82 Altered mental status, unspecified; E11.9 Type 2 diabetes mellitus without complications; I10 Essential (primary) hypertension; Z86.79 Personal history of other diseases of the circulatory system; Z95.811 Presence of heart assist device; Z79.4 Long term (current) use of insulin; Z79.01 Long term (current) use of anticoagulants; Z79.899 Other long term (current) drug therapy
CPT/HCPCS: 36600; 51702; 71045; 74177; 80048; 80076; 81001; 82010; 82077; 82150; 82803; 83605; 84145; 85025; 85610; 85730; 86140; 86850; 86900; 86901; 86920; 87040; 87077; 87088; 87186; 87486; 87581; 87633; 87798; 93005; 93041; 94760; 96365; 96366; 96375; 99291; 99292; J0612; J1815; J2543; P9016; Q9967